=== PATIENT | female | born 1975 | race Caucasian/White ===

== ENCOUNTER 2018-04-01 14:26 | Emergency (ER) | payer MEDICAID ==
[~2018-04-01] VITALS: Ht 162.6 cm; Wt 111.1 kg
[2018-04-01 15:38] LABS: Basophils # (auto) 0 uL; Eosinophils # (auto) 0.1 uL; Eosinophils % (auto) 1.1 % (0.0-7.0); Hemoglobin 11.8 g/dL (12.2-16.2); Lymphocytes # (auto) 1.2 uL; Lymphocytes % (auto) 16.9 % (10.0-50.0); Neutrophils # (auto) 5.3 uL
[2018-04-01 15:39] LABS: Basophils % (auto) 0.3 % (0.0-2.0); Hematocrit 36.8 % (36.0-46.0); Mean Corpuscular Hemoglobin 26.3 pg (28.0-32.0); Mean Corpuscular Hgb Conc. 32.1 g/dL (32.0-36.0); Mean Corpuscular Volume 81.8 fL (80.0-100.0); Monocytes # (auto) 0.5 uL; Monocytes % (auto) 6.7 % (0.0-12.0); Platelet Count (auto) 291 10^3/uL (140-450); Red Cell Distribution Width 17.3 % (11.8-14.3)
[2018-04-01 15:43] LABS: Urine Bacteria FEW /hpf (None Seen); Urine Blood Negative /uL (Negative); Urine Specific Gravity 1.006 (1.001-1.035); Urine WBC 1 /hpf (0 - 5)
[2018-04-01 16:01] LABS: Albumin 3.1 g/dL (3.4-5.0); BUN/Creatinine Ratio 8.9; Bilirubin, Total 0.2 mg/dL (0.2-1.0); Calcium 10.9 mg/dL (8.5-10.1); Potassium 4.2 mmol/L (3.5-5.1); Total Protein 7.2 g/dL (6.4-8.2)
[2018-04-01] MEDS ORDERED: LORazepam 2MG/ML-1ML VIAL IV ONE (19:00)
[2018-04-01] MEDS ORDERED: HYDROcodone-ACET 10/325MG TAB PO ONE (19:30)
[2018-04-01 22:38] VITALS: BP 127/66
== END 2018-04-01 22:43 | disposition home or self-care (01) ==
LOC: ER 14:26
DX: R07.9 Chest pain, unspecified (principal); R51 Headache; F41.9 Anxiety disorder, unspecified; E11.9 Type 2 diabetes mellitus without complications; I10 Essential (primary) hypertension; E21.3 Hyperparathyroidism, unspecified
CPT/HCPCS: 36415; 70450; 80053; 81001; 85025; 93005; 96374; 99285; J2060

== ENCOUNTER 2018-05-06 02:15 | Observation (INO) | payer MEDICAID ==
[~2018-05-06] VITALS: Ht 162.6 cm; Wt 110.2 kg
[2018-05-06 03:44] LABS: Basophils # (auto) 0 uL; Basophils % (auto) 0.3 % (0.0-2.0); Eosinophils # (auto) 0.1 uL; Hematocrit 37.8 % (36.0-46.0); Hemoglobin 12.4 g/dL (12.2-16.2); Lymphocytes # (auto) 1.9 uL; Lymphocytes % (auto) 22.1 % (10.0-50.0); Mean Corpuscular Hemoglobin 27.2 pg (28.0-32.0); Mean Corpuscular Hgb Conc. 32.8 g/dL (32.0-36.0); Mean Corpuscular Volume 83.2 fL (80.0-100.0); Monocytes # (auto) 0.5 uL; Neutrophils # (auto) 6.1 uL; Neutrophils % (auto) 70.6 % (37.0-80.0); Nucleated Red Blood Cells % 0.1 %; Platelet Count (auto) 295 10^3/uL (140-450); Red Blood Cells 4.54 10^6/uL (4.0-5.20); Red Cell Distribution Width 15.5 % (11.8-14.3); White Blood Cell 8.7 10^3/uL (4.4-10.8)
[2018-05-06 03:52] LABS: Urine Bacteria FEW /hpf (None Seen); Urine Blood Negative /uL (Negative); Urine Specific Gravity 1.006 (1.001-1.035); Urine WBC 2 /hpf (0 - 5)
[2018-05-06 04:00] LABS: Alanine Aminotransferase 110 U/L (13-56); Albumin 3.2 g/dL (3.4-5.0); Anion Gap 9 (5-15); Aspartate Aminotransferase 63 U/L (15-37); BUN/Creatinine Ratio 20.8; Blood Urea Nitrogen 11 mg/dL (7-18); Calcium 10.7 mg/dL (8.5-10.1); Carbon Dioxide 23 mmol/L (21-32); Chloride 108 mmol/L (98-107); GFR African American 160 mL/min; GFR Non-African American 133 mL/min; Glucose 141 mg/dL (74-106); Potassium 3.9 mmol/L (3.5-5.1); Sodium 140 mmol/L (136-145)
[2018-05-06 04:04] LABS: Alkaline Phosphatase 97 U/L (45-117); Bilirubin, Total 0.2 mg/dL (0.2-1.0); Total Protein 7.5 g/dL (6.4-8.2)
[2018-05-06] MEDS ORDERED: ASPirin 81 mg TAB PO ONE (07:00)
[2018-05-06] MEDS ORDERED: LORazepam 2MG/ML-1ML VIAL IV ONE (07:00)
[2018-05-06 07:49] VITALS: BP 122/68
== END 2018-05-06 07:51 | disposition home or self-care (01) | DRG 351 ==
LOC: ER 02:15 → OVERFLOW 02:16 → ER 07:51
PROVIDERS: ADMIT Emergency Medicine; ATTEND Emergency Medicine
DX: M79.1 Myalgia (principal); E11.9 Type 2 diabetes mellitus without complications; F41.9 Anxiety disorder, unspecified; I10 Essential (primary) hypertension
CPT/HCPCS: 36415; 71046; 80053; 81001; 81025; 83880; 84484; 85025; 93005; 96374; 99285; G0378; J2060

== ENCOUNTER 2018-06-21 21:07 | Emergency (ER) | payer MEDICAID ==
[~2018-06-21] VITALS: Ht 162.6 cm; Wt 109.3 kg
[2018-06-21 22:20] LABS: Urine Bacteria NONE SEEN /hpf (None Seen); Urine Blood Negative /uL (Negative); Urine Mucus FEW (None Seen); Urine Specific Gravity 1.008 (1.001-1.035); Urine WBC 2 /hpf (0 - 5)
[2018-06-21 22:44] LABS: Basophils # (auto) 0 uL; Basophils % (auto) 0.3 % (0.0-2.0); Eosinophils # (auto) 0.1 uL; Hematocrit 38.6 % (36.0-46.0); Hemoglobin 12.6 g/dL (12.2-16.2); Lymphocytes % (auto) 23.2 % (10.0-50.0); Mean Corpuscular Hgb Conc. 32.7 g/dL (32.0-36.0); Mean Corpuscular Volume 85.6 fL (80.0-100.0); Monocytes # (auto) 0.6 uL; Monocytes % (auto) 7.1 % (0.0-12.0); Neutrophils # (auto) 5.9 uL; Neutrophils % (auto) 68.4 % (37.0-80.0); Platelet Count (auto) 303 10^3/uL (140-450); Red Blood Cells 4.51 10^6/uL (4.0-5.20); Red Cell Distribution Width 14.8 % (11.8-14.3); White Blood Cell 8.6 10^3/uL (4.4-10.8)
[2018-06-21 23:03] LABS: Albumin 3.3 g/dL (3.4-5.0); BUN/Creatinine Ratio 14.7; Bilirubin, Total 0.2 mg/dL (0.2-1.0); Calcium 11.1 mg/dL (8.5-10.1); Potassium 4.1 mmol/L (3.5-5.1); Total Protein 7.7 g/dL (6.4-8.2)
[2018-06-22] MEDS ORDERED: KETOROLAC TROMETH 30 MG/ML 1ML VIAL IV ONE (08:45)
[2018-06-22 15:53] VITALS: BP 146/92
== END 2018-06-22 15:54 | disposition home or self-care (01) ==
LOC: ER 21:07
DX: D21.9 Benign neoplasm of connective and other soft tissue, unspecified (principal)
CPT/HCPCS: 36415; 74176; 76856; 80053; 81001; 81025; 82962; 85025; 96374

== ENCOUNTER 2018-10-09 16:29 | Emergency (ER) | payer MEDICAID ==
[~2018-10-09] VITALS: Ht 162.6 cm; Wt 109.3 kg
[2018-10-09 20:14] LABS: Basophils # (auto) 0 uL; Basophils % (auto) 0.2 % (0.0-2.0); Eosinophils # (auto) 0.1 uL; Eosinophils % (auto) 1.3 % (0.0-7.0); Hematocrit 40.1 % (36.0-46.0); Hemoglobin 12.8 g/dL (12.2-16.2); Lymphocytes # (auto) 1.5 uL; Lymphocytes % (auto) 19.5 % (10.0-50.0); Mean Corpuscular Hemoglobin 27.9 pg (28.0-32.0); Mean Corpuscular Volume 87.3 fL (80.0-100.0); Monocytes # (auto) 0.5 uL; Monocytes % (auto) 6.8 % (0.0-12.0); Neutrophils # (auto) 5.6 uL; Neutrophils % (auto) 72.2 % (37.0-80.0); Platelet Count (auto) 295 10^3/uL (140-450); White Blood Cell 7.8 10^3/uL (4.4-10.8)
[2018-10-09 20:53] LABS: Alanine Aminotransferase 106 U/L (13-56); Albumin 3.3 g/dL (3.4-5.0); Anion Gap 5 (5-15); Calcium 10.8 mg/dL (8.5-10.1); Carbon Dioxide 25 mmol/L (21-32); Chloride 107 mmol/L (98-107); Glucose 188 mg/dL (74-106); Magnesium 1.8 mg/dL (1.6-2.6); Potassium 4.2 mmol/L (3.5-5.1); Sodium 137 mmol/L (136-145)
[2018-10-09 20:58] LABS: Alkaline Phosphatase 94 U/L (45-117); Aspartate Aminotransferase 53 U/L (15-37); Bilirubin, Total 0.3 mg/dL (0.2-1.0); GFR African American 136 mL/min; GFR Non-African American 113 mL/min; Total Protein 7.5 g/dL (6.4-8.2)
[2018-10-09 21:10] VITALS: BP 155/81
[2018-10-09 21:31] LABS: BUN/Creatinine Ratio 9.8; Blood Urea Nitrogen 6 mg/dL (7-18)
== END 2018-10-09 21:35 | disposition home or self-care (01) ==
LOC: ER 16:37
DX: F41.9 Anxiety disorder, unspecified (principal); E11.9 Type 2 diabetes mellitus without complications; I10 Essential (primary) hypertension
CPT/HCPCS: 36415; 71046; 80053; 83735; 84484; 85025; 93005

== ENCOUNTER 2019-05-24 13:55 | Emergency (ER) | payer MEDICAID ==
[~2019-05-24] VITALS: Ht 162.6 cm; Wt 112.0 kg
[2019-05-24] MEDS ORDERED: SODIUM CHLORIDE 0.9% 500 ML IVB ONE (14:37)
[2019-05-24] MEDS ORDERED: ONDANSETRON HCL 4 MG/2 ML VIAL IV ONE (14:45)
[2019-05-24] MEDS ORDERED: FAMOTIDINE (10MG/ML) 2ML VL IV ONE (14:45)
[2019-05-24] MEDS ORDERED: MORPHINE SULFATE 4 MG/ML SYR/VIAL IV ONE (14:45)
[2019-05-24 15:28] LABS: Urine Bacteria FEW /hpf (None Seen); Urine Blood Negative /uL (Negative); Urine Mucus FEW (None Seen); Urine Specific Gravity 1.008 (1.001-1.035); Urine WBC 1 /hpf (0 - 5)
[2019-05-24 15:58] LABS: Basophils # (auto) 0 uL; Eosinophils # (auto) 0.1 uL; Hemoglobin 9.9 g/dL (12.2-16.2); Neutrophils # (auto) 5.7 uL; White Blood Cell 7.9 10^3/uL (4.4-10.8)
[2019-05-24 15:59] LABS: Alanine Aminotransferase 101 U/L (13-56); Anion Gap 10 (5-15); Aspartate Aminotransferase 65 U/L (15-37); BUN/Creatinine Ratio 12.5; Basophils % (auto) 0.3 % (0.0-2.0); Blood Urea Nitrogen 7 mg/dL (7-18); Calcium 11.6 mg/dL (8.5-10.1); Carbon Dioxide 22 mmol/L (21-32); Chloride 106 mmol/L (98-107); GFR African American 150 mL/min; GFR Non-African American 124 mL/min; Glucose 147 mg/dL (74-106); Hematocrit 31.7 % (36.0-46.0); Lipase 95 U/L (73-393); Lymphocytes # (auto) 1.5 uL; Lymphocytes % (auto) 19.3 % (10.0-50.0); Magnesium 2.1 mg/dL (1.6-2.6); Mean Corpuscular Hemoglobin 22.5 pg (28.0-32.0); Mean Corpuscular Hgb Conc. 31.1 g/dL (32.0-36.0); Mean Corpuscular Volume 72.5 fL (80.0-100.0); Monocytes # (auto) 0.6 uL; Neutrophils % (auto) 72.4 % (37.0-80.0); Nucleated Red Blood Cells % 0.1 %; Platelet Count (auto) 386 10^3/uL (140-450); Potassium 3.9 mmol/L (3.5-5.1); Red Blood Cells 4.38 10^6/uL (4.0-5.20); Red Cell Distribution Width 17.4 % (11.8-14.3); Sodium 138 mmol/L (136-145)
[2019-05-24 16:04] LABS: Alkaline Phosphatase 98 U/L (45-117); Bilirubin, Total 0.2 mg/dL (0.2-1.0); Total Protein 7.5 g/dL (6.4-8.2)
[2019-05-24 17:28] VITALS: BP 139/82
[2019-05-26] MEDS ORDERED: GLIP10TA9 PO (22:27)
[2019-05-26] MEDS ORDERED: LISI-646 PO (22:27)
[2019-05-26] MEDS ORDERED: METF-490 PO (22:27)
[2019-05-26] MEDS ORDERED: FERR1TAB36 PO (22:27)
[2019-05-26] MEDS ORDERED: ALOG1TAB2 PO (22:28)
== END 2019-05-24 17:48 | disposition home or self-care (01) ==
LOC: ER 13:55
DX: K29.70 Gastritis, unspecified, without bleeding (principal); R51 Headache; E11.9 Type 2 diabetes mellitus without complications; I10 Essential (primary) hypertension; Z87.442 Personal history of urinary calculi; Z86.39 Personal history of other endocrine, nutritional and metabolic disease
CPT/HCPCS: 36415; 76705; 80053; 81001; 83690; 83735; 84484; 85025; 93005; 94761; 96361; 96374; 96375; 99284; J2270; J2405; J3490; J7040

== ENCOUNTER 2019-08-08 05:09 | Emergency (ER) | payer MEDICAID ==
[~2019-08-08] VITALS: Ht 162.6 cm; Wt 104.8 kg
[~2019-08-08 05:09] MED LIST: ALOG1TAB2 PO; FERR1TAB36 PO; GLIP10TA9 PO; LISI-646 PO; METF-490 PO
[2019-08-08 06:39] LABS: Basophils # (auto) 0 uL; Eosinophils # (auto) 0.1 uL; Lymphocytes # (auto) 1.5 uL; Monocytes # (auto) 0.4 uL; Monocytes % (auto) 6.4 % (0.0-12.0)
[2019-08-08 06:42] LABS: Basophils % (auto) 0.2 % (0.0-2.0); Eosinophils % (auto) 1.2 % (0.0-7.0); Hematocrit 33.1 % (36.0-46.0); Hemoglobin 10.3 g/dL (12.2-16.2); Lymphocytes % (auto) 23.3 % (10.0-50.0); Mean Corpuscular Hemoglobin 23.7 pg (28.0-32.0); Mean Corpuscular Hgb Conc. 31.2 g/dL (32.0-36.0); Neutrophils # (auto) 4.5 uL; Neutrophils % (auto) 68.9 % (37.0-80.0); Nucleated Red Blood Cells % 0.1 %; Platelet Count (auto) 322 10^3/uL (140-450); Red Blood Cells 4.36 10^6/uL (4.0-5.20); White Blood Cell 6.5 10^3/uL (4.4-10.8)
[2019-08-08 06:54] LABS: Albumin 3.2 g/dL (3.4-5.0); Anion Gap 4 (5-15); BUN/Creatinine Ratio 11.9; Blood Urea Nitrogen 7 mg/dL (7-18); Calcium 10.8 mg/dL (8.5-10.1); Carbon Dioxide 25 mmol/L (21-32); Chloride 108 mmol/L (98-107); GFR African American 141 mL/min; GFR Non-African American 117 mL/min; Glucose 108 mg/dL (74-106); Magnesium 1.8 mg/dL (1.6-2.6); Potassium 3.6 mmol/L (3.5-5.1); Sodium 137 mmol/L (136-145)
[2019-08-08 07:05] LABS: Alanine Aminotransferase 41 U/L (13-56); Alkaline Phosphatase 92 U/L (45-117); Aspartate Aminotransferase 19 U/L (15-37); Bilirubin, Total 0.2 mg/dL (0.2-1.0)
[2019-08-08 07:08] LABS: Urine Bacteria NONE SEEN /hpf (None Seen); Urine Blood 2+ /uL (Negative); Urine Mucus FEW (None Seen); Urine Specific Gravity 1.005 (1.001-1.035); Urine WBC 1 /hpf (0 - 5)
[2019-08-08] MEDS ORDERED: LORazepam 0.5 MG TAB PO ONE (07:15)
[2019-08-08 08:24] VITALS: BP 133/84
== END 2019-08-08 08:42 | disposition home or self-care (01) ==
LOC: ER 05:09
DX: F41.9 Anxiety disorder, unspecified (principal); E11.9 Type 2 diabetes mellitus without complications; I10 Essential (primary) hypertension; Z87.442 Personal history of urinary calculi; Z86.39 Personal history of other endocrine, nutritional and metabolic disease; Z98.51 Tubal ligation status
CPT/HCPCS: 36415; 80053; 81001; 81025; 83735; 84484; 85025; 93005

== ENCOUNTER 2019-10-01 00:52 | Emergency (ER) | payer MEDICAID ==
[~2019-10-01] VITALS: Ht 162.6 cm; Wt 103.4 kg
[2019-10-01 02:07] LABS: Basophils # (auto) 0 uL; Basophils % (auto) 0.2 % (0.0-2.0); Eosinophils # (auto) 0.1 uL; Eosinophils % (auto) 0.9 % (0.0-7.0); Hematocrit 38.6 % (36.0-46.0); Hemoglobin 12.4 g/dL (12.2-16.2); Lymphocytes # (auto) 2.2 uL; Lymphocytes % (auto) 26.3 % (10.0-50.0); Mean Corpuscular Hgb Conc. 32.1 g/dL (32.0-36.0); Mean Corpuscular Volume 83.9 fL (80.0-100.0); Monocytes # (auto) 0.5 uL; Monocytes % (auto) 5.9 % (0.0-12.0); Neutrophils # (auto) 5.6 uL; Neutrophils % (auto) 66.7 % (37.0-80.0); Platelet Count (auto) 347 10^3/uL (140-450); Red Cell Distribution Width 17.9 % (11.8-14.3); White Blood Cell 8.4 10^3/uL (4.4-10.8)
[2019-10-01 02:16] LABS: Albumin 3.4 g/dL (3.4-5.0); Anion Gap 8 (5-15); Blood Urea Nitrogen 9 mg/dL (7-18); Calcium 11.9 mg/dL (8.5-10.1); Carbon Dioxide 24 mmol/L (21-32); Chloride 107 mmol/L (98-107); Glucose 116 mg/dL (74-106); Potassium 4.4 mmol/L (3.5-5.1); Sodium 139 mmol/L (136-145)
[2019-10-01 02:18] LABS: Alanine Aminotransferase 33 U/L (13-56); Aspartate Aminotransferase 18 U/L (15-37); GFR African American 138 mL/min; GFR Non-African American 114 mL/min
[2019-10-01 02:23] LABS: Alkaline Phosphatase 92 U/L (45-117); Bilirubin, Total 0.2 mg/dL (0.2-1.0); Total Protein 7.5 g/dL (6.4-8.2)
[2019-10-01 02:32] LABS: Urine Bacteria NONE SEEN /hpf (None Seen); Urine Blood 1+ /uL (Negative); Urine Specific Gravity 1.003 (1.001-1.035); Urine WBC <1 /hpf (0 - 5)
[2019-10-01 03:38] VITALS: BP 137/70
== END 2019-10-01 03:55 | disposition home or self-care (01) ==
LOC: ER 00:54
DX: I20.9 Angina pectoris, unspecified (principal); I10 Essential (primary) hypertension; E11.9 Type 2 diabetes mellitus without complications
CPT/HCPCS: 36415; 70450; 80053; 81001; 84484; 85025

== ENCOUNTER 2019-11-18 03:57 | Emergency (ER) | payer MEDICAID ==
[~2019-11-18] VITALS: Ht 162.6 cm; Wt 103.4 kg
[2019-11-18 04:07] VITALS: BP 159/83
[2019-11-18 06:41] LABS: Urine Bacteria NONE SEEN /hpf (None Seen); Urine Blood 3+ /uL (Negative); Urine Mucus FEW (None Seen); Urine Specific Gravity 1.018 (1.001-1.035); Urine WBC 93 /hpf (0 - 5)
[2019-11-18 06:42] LABS: Basophils # (auto) 0 uL; Basophils % (auto) 0.2 % (0.0-2.0); Eosinophils # (auto) 0.1 uL; Eosinophils % (auto) 1.1 % (0.0-7.0); Hemoglobin 13.5 g/dL (12.2-16.2); Lymphocytes # (auto) 1.6 uL; Lymphocytes % (auto) 17.6 % (10.0-50.0); Mean Corpuscular Hemoglobin 28.9 pg (28.0-32.0); Mean Corpuscular Volume 87.6 fL (80.0-100.0); Monocytes # (auto) 0.6 uL; Monocytes % (auto) 6.2 % (0.0-12.0); Neutrophils # (auto) 6.8 uL; Neutrophils % (auto) 74.9 % (37.0-80.0); Platelet Count (auto) 324 10^3/uL (140-450); Red Blood Cells 4.68 10^6/uL (4.0-5.20); Red Cell Distribution Width 14.2 % (11.8-14.3); White Blood Cell 9.1 10^3/uL (4.4-10.8)
[2019-11-18 07:10] LABS: Alanine Aminotransferase 28 U/L (13-56); Albumin 3.2 g/dL (3.4-5.0); Anion Gap 3 (5-15); Aspartate Aminotransferase 13 U/L (15-37); BUN/Creatinine Ratio 14.8; Blood Urea Nitrogen 8 mg/dL (7-18); Calcium 10.6 mg/dL (8.5-10.1); Carbon Dioxide 26 mmol/L (21-32); Chloride 107 mmol/L (98-107); GFR African American 156 mL/min; GFR Non-African American 129 mL/min; Glucose 202 mg/dL (74-106); Magnesium 1.9 mg/dL (1.6-2.6); Potassium 4.3 mmol/L (3.5-5.1); Sodium 136 mmol/L (136-145)
[2019-11-18 07:10] LABS: Amphetamine Screen, Urine NEGATIVE (NEGATIVE)
[2019-11-18 07:15] LABS: Alkaline Phosphatase 110 U/L (45-117); Bilirubin, Total 0.3 mg/dL (0.2-1.0); Total Protein 7.8 g/dL (6.4-8.2)
[2019-11-18 07:16] LABS: Alcohol, Urine < 3.0 mg/dL (0-5); Barbiturate Scree,Urine NEGATIVE (NEGATIVE); Benzodiazephine Screen, Urine NEGATIVE (NEGATIVE); Cannabinoid Screen, Urine NEGATIVE (NEGATIVE); Cocaine Screen, Urine NEGATIVE (NEGATIVE); Opiate Scree,Urine NEGATIVE (NEGATIVE); Phencyclidine Screen, Urine NEGATIVE (NEGATIVE)
[2019-11-18] MEDS ORDERED: cefTRIAXone 1GM/50ML D5W 50 ML IV ONE (08:30)
== END 2019-11-18 09:05 | disposition left against medical advice (07) ==
LOC: ER 04:01
DX: R07.89 Other chest pain (principal); J40 Bronchitis, not specified as acute or chronic; N39.0 Urinary tract infection, site not specified; F41.9 Anxiety disorder, unspecified; E11.9 Type 2 diabetes mellitus without complications; I10 Essential (primary) hypertension; Z98.51 Tubal ligation status; Z87.442 Personal history of urinary calculi; Z79.899 Other long term (current) drug therapy
CPT/HCPCS: 36415; 71045; 80053; 80307; 81001; 83735; 84484; 85025; 93005

== ENCOUNTER 2020-12-09 13:42 | Emergency (ER) | payer MEDICAID ==
[~2020-12-09] VITALS: Ht 162.6 cm; Wt 107.5 kg
[~2020-12-09 13:42] MED LIST changes: -LISI-646 PO; +LISI20TA28 PO
[2020-12-09 14:42] VITALS: BP 176/82
== END 2020-12-09 15:28 | disposition home or self-care (01) ==
LOC: ER 13:42
DX: Z76.0 Encounter for issue of repeat prescription (principal); E11.9 Type 2 diabetes mellitus without complications; I10 Essential (primary) hypertension; Z79.84 Long term (current) use of oral hypoglycemic drugs; Z79.899 Other long term (current) drug therapy

== ENCOUNTER 2021-02-14 18:34 | Emergency (ER) | payer MEDICAID ==
[~2021-02-14] VITALS: Ht 162.6 cm; Wt 108.9 kg
[2021-02-14 19:44] LABS: Basophils # (auto) 0 10 ^3/uL (0-0.2); Basophils % (auto) 0.6 % (0.0-2.0); Eosinophils # (auto) 0.1 10 ^3/uL (0-0.8); Eosinophils % (auto) 1.6 % (0.0-7.0); Hematocrit 40.6 % (36.0-46.0); Hemoglobin 13.7 g/dL (12.2-16.2); Lymphocytes # (auto) 1.9 10 ^3/uL (0.4-5.4); Lymphocytes % (auto) 24.7 % (10.0-50.0); Mean Corpuscular Hemoglobin 29.8 pg (28.0-32.0); Mean Corpuscular Hgb Conc. 33.6 g/dL (32.0-36.0); Mean Corpuscular Volume 88.6 fL (80.0-100.0); Monocytes # (auto) 0.5 10 ^3/uL (0-1.3); Neutrophils % (auto) 67.1 % (37.0-80.0); Platelet Count (auto) 330 10^3/uL (140-450); Red Blood Cells 4.58 10^6/uL (4.0-5.20); Red Cell Distribution Width 15.8 % (11.8-14.3); White Blood Cell 7.5 10^3/uL (4.4-10.8)
[2021-02-14 20:03] LABS: Albumin 3.3 g/dL (3.4-5.0); Anion Gap 6 (5-15); Blood Urea Nitrogen 9 mg/dL (7-18); Calcium 11.6 mg/dL (8.5-10.1); Carbon Dioxide 22 mmol/L (21-32); Chloride 105 mmol/L (98-107); Glucose 348 mg/dL (74-106); Potassium 4.7 mmol/L (3.5-5.1); Sodium 133 mmol/L (136-145)
[2021-02-14 20:20] LABS: Alanine Aminotransferase 62 U/L (13-56); Alkaline Phosphatase 131 U/L (45-117); Aspartate Aminotransferase 31 U/L (15-37); BUN/Creatinine Ratio 12.7; Bilirubin, Total 0.2 mg/dL (0.2-1.0); GFR African American 113 mL/min; GFR Non-African American 94 mL/min; Total Protein 7.5 g/dL (6.4-8.2)
[2021-02-15 01:35] VITALS: BP 130/75
[2021-02-15] MEDS ORDERED: InsuLIN REG 1unit/0.01ml Soln (100units/ml) IV ONE (02:00)
[2021-02-15] MEDS ORDERED: KETOROLAC TROMETH 30 MG/ML 1ML VIAL IV ONE (02:00)
== END 2021-02-15 10:51 | disposition home or self-care (01) ==
LOC: ER 18:35
DX: R07.89 Other chest pain (principal); F41.9 Anxiety disorder, unspecified; E11.9 Type 2 diabetes mellitus without complications; I10 Essential (primary) hypertension; Z98.51 Tubal ligation status; Z98.890 Other specified postprocedural states
CPT/HCPCS: 36415; 80053; 82962; 84484; 85025; 93005; 96374; 96375; 99284; J1815; J1885

== ENCOUNTER 2021-04-22 20:12 | Emergency (ER) | payer MEDICAID ==
[~2021-04-22] VITALS: Ht 165.1 cm; Wt 104.3 kg
[2021-04-22] MEDS ORDERED: NITROGLYCERIN 0.2MG/HR TOPICAL PATCH TD ONE (21:00)
[2021-04-22] MEDS ORDERED: KETOROLAC TROMETH 30 MG/ML 1ML VIAL IV ONE (21:00)
[2021-04-22] MEDS ORDERED: LORazepam 0.5 MG TAB PO ONE (21:00)
[2021-04-22] MEDS ORDERED: ASPirin 81 mg TAB PO ONE (21:00)
[2021-04-22] MEDS ORDERED: ACETAMINOPHEN 325 MG TAB PO ONE (21:00)
[2021-04-22 22:42] LABS: Basophils # (auto) 0.2 10 ^3/uL (0-0.2); Basophils % (auto) 1.7 % (0.0-2.0); Eosinophils # (auto) 0.1 10 ^3/uL (0-0.8); Eosinophils % (auto) 0.8 % (0.0-7.0); Hematocrit 37.7 % (36.0-46.0); Hemoglobin 12.7 g/dL (12.2-16.2); Lymphocytes # (auto) 1.5 10 ^3/uL (0.4-5.4); Mean Corpuscular Hemoglobin 29.6 pg (28.0-32.0); Mean Corpuscular Hgb Conc. 33.8 g/dL (32.0-36.0); Mean Corpuscular Volume 87.7 fL (80.0-100.0); Monocytes # (auto) 0.4 10 ^3/uL (0-1.3); Neutrophils # (auto) 6.8 10 ^3/uL (1.6-8.6); Neutrophils % (auto) 76.5 % (37.0-80.0); Nucleated Red Blood Cells % 0.1 %; Red Cell Distribution Width 14.5 % (11.8-14.3); White Blood Cell 8.9 10^3/uL (4.4-10.8)
[2021-04-22 22:47] LABS: Albumin 3.4 g/dL (3.4-5.0); Anion Gap 10 (5-15); Blood Urea Nitrogen 8 mg/dL (7-18); Carbon Dioxide 23 mmol/L (21-32); Chloride 101 mmol/L (98-107); Glucose 214 mg/dL (74-106); INR 0.94 (0.9-1.15); Magnesium 1.8 mg/dL (1.6-2.6); Partial Thromboplastin Time 21.9 sec (23.0-31.2); Sodium 134 mmol/L (136-145)
[2021-04-22 22:52] LABS: Alanine Aminotransferase 69 U/L (13-56); Alkaline Phosphatase 86 U/L (45-117); Aspartate Aminotransferase 56 U/L (15-37); BUN/Creatinine Ratio 14.8; Bilirubin, Total 0.2 mg/dL (0.2-1.0); GFR African American 155 mL/min; GFR Non-African American 128 mL/min
[2021-04-22 22:59] LABS: Urine Bacteria NONE SEEN /hpf (None Seen); Urine Blood 3+ /uL (Negative); Urine Mucus FEW (None Seen); Urine Specific Gravity 1.011 (1.001-1.035); Urine WBC 5 /hpf (0 - 5)
[2021-04-23] MEDS ORDERED: HYDROcodone-ACET 7.5/325MG TAB PO ONE (00:30)
[2021-04-23] MEDS ORDERED: NIFEdipine 10 MG CAP PO ONE (02:00)
[2021-04-23] MEDS ORDERED: ONDANSETRON HCL 4 MG/2 ML VIAL IV ONE (02:15)
[2021-04-23 03:00] VITALS: BP 162/80
[2021-04-23] MEDS ORDERED: NITROGLYCERIN 0.4 MG SL TAB SL ONE (10:00)
== END 2021-04-23 05:53 | disposition home or self-care (01) ==
LOC: ER 20:12
DX: R07.89 Other chest pain (principal); I10 Essential (primary) hypertension; E11.9 Type 2 diabetes mellitus without complications; Z86.2 Personal history of diseases of the blood and blood-forming organs and certain disorders involving the immune mechanism; Z79.899 Other long term (current) drug therapy
CPT/HCPCS: 36415; 71045; 80053; 81001; 81025; 82962; 83735; 83880; 84484; 85025; 85610; 85730; 93005; 96374; 96375; 99285; J1885; J2405

== ENCOUNTER 2021-06-21 20:30 | Emergency (ER) | payer MEDICAID ==
[~2021-06-21] VITALS: Ht 152.4 cm; Wt 108.9 kg
[2021-06-21 23:55] LABS: Basophils # (auto) 0 10 ^3/uL (0-0.2); Basophils % (auto) 0.4 % (0.0-2.0); Eosinophils # (auto) 0.1 10 ^3/uL (0-0.8); Hematocrit 39.2 % (36.0-46.0); Hemoglobin 13.1 g/dL (12.2-16.2); Lymphocytes # (auto) 1.7 10 ^3/uL (0.4-5.4); Lymphocytes % (auto) 19.6 % (10.0-50.0); Mean Corpuscular Hemoglobin 29.7 pg (28.0-32.0); Mean Corpuscular Hgb Conc. 33.5 g/dL (32.0-36.0); Mean Corpuscular Volume 88.7 fL (80.0-100.0); Monocytes # (auto) 0.5 10 ^3/uL (0-1.3); Monocytes % (auto) 5.7 % (0.0-12.0); Neutrophils # (auto) 6.4 10 ^3/uL (1.6-8.6); Neutrophils % (auto) 73.3 % (37.0-80.0); Nucleated Red Blood Cells % 0.1 %; Red Blood Cells 4.42 10^6/uL (4.0-5.20); Red Cell Distribution Width 14.7 % (11.8-14.3); White Blood Cell 8.8 10^3/uL (4.4-10.8)
[2021-06-22 00:31] LABS: Albumin 3.1 g/dL (3.4-5.0); Anion Gap 10 (5-15); Blood Urea Nitrogen 8 mg/dL (7-18); Calcium 11.6 mg/dL (8.5-10.1); Carbon Dioxide 25 mmol/L (21-32); Chloride 101 mmol/L (98-107); GFR African American 146 mL/min; GFR Non-African American 120 mL/min; Glucose 192 mg/dL (74-106); Potassium 4.2 mmol/L (3.5-5.1); Sodium 136 mmol/L (136-145)
[2021-06-22 00:44] LABS: Alanine Aminotransferase 110 U/L (13-56); Alkaline Phosphatase 91 U/L (45-117); Aspartate Aminotransferase 102 U/L (15-37); Bilirubin, Total 0.3 mg/dL (0.2-1.0); Total Protein 7.6 g/dL (6.4-8.2)
[2021-06-22 04:53] VITALS: BP 166/77
== END 2021-06-22 05:05 | disposition home or self-care (01) ==
LOC: ER 20:30
DX: R07.89 Other chest pain (principal); I10 Essential (primary) hypertension; E11.9 Type 2 diabetes mellitus without complications; F41.9 Anxiety disorder, unspecified; Z79.4 Long term (current) use of insulin; Z79.899 Other long term (current) drug therapy; Z87.442 Personal history of urinary calculi; Z98.890 Other specified postprocedural states
CPT/HCPCS: 36415; 71045; 80053; 83880; 84484; 85025; 93005

== ENCOUNTER 2021-08-10 22:17 | Emergency (ER) | payer MEDICAID ==
[~2021-08-10] VITALS: Ht 162.6 cm; Wt 103.9 kg
[2021-08-11 00:10] LABS: Basophils # (auto) 0 10 ^3/uL (0-0.2); Basophils % (auto) 0.4 % (0.0-2.0); Eosinophils # (auto) 0.1 10 ^3/uL (0-0.8); Hematocrit 37.4 % (36.0-46.0); Hemoglobin 12.1 g/dL (12.2-16.2); Lymphocytes # (auto) 1.7 10 ^3/uL (0.4-5.4); Lymphocytes % (auto) 25.2 % (10.0-50.0); Mean Corpuscular Hemoglobin 27.9 pg (28.0-32.0); Mean Corpuscular Hgb Conc. 32.5 g/dL (32.0-36.0); Monocytes # (auto) 0.5 10 ^3/uL (0-1.3); Neutrophils # (auto) 4.4 10 ^3/uL (1.6-8.6); Neutrophils % (auto) 65.4 % (37.0-80.0); Nucleated Red Blood Cells % 0.1 %; Red Blood Cells 4.35 10^6/uL (4.0-5.20); Red Cell Distribution Width 13.7 % (11.8-14.3); White Blood Cell 6.8 10^3/uL (4.4-10.8)
[2021-08-11 00:31] LABS: BUN/Creatinine Ratio 18.9; Calcium 11.6 mg/dL (8.5-10.1); Magnesium 1.6 mg/dL (1.6-2.6); Potassium 3.8 mmol/L (3.5-5.1)
[2021-08-11 00:40] LABS: Bilirubin, Total 0.3 mg/dL (0.2-1.0); Total Protein 7.3 g/dL (6.4-8.2)
[2021-08-11 04:30] VITALS: BP 175/86
== END 2021-08-11 05:00 | disposition home or self-care (01) ==
LOC: ER 22:17
DX: R07.89 Other chest pain (principal); I10 Essential (primary) hypertension; F41.9 Anxiety disorder, unspecified; E11.9 Type 2 diabetes mellitus without complications; Z98.51 Tubal ligation status
CPT/HCPCS: 36415; 71045; 80053; 83735; 83880; 84484; 85025; 93005

== ENCOUNTER 2021-10-01 22:18 | Emergency (ER) | payer MEDICAID ==
[~2021-10-01] VITALS: Ht 160 cm; Wt 100.7 kg
[2021-10-01 22:19] VITALS: BP 128/48
== END 2021-10-02 01:52 | disposition left against medical advice (07) ==
LOC: ER 22:18
DX: U07.1 COVID-19 (principal); R05.9 Cough, unspecified; Z53.21 Procedure and treatment not carried out due to patient leaving prior to being seen by health care provider
CPT/HCPCS: 36415; 87426

== ENCOUNTER 2021-10-03 12:34 | Emergency (ER) | payer MEDICAID ==
[~2021-10-03] VITALS: Ht 157.5 cm; Wt 99.8 kg
[2021-10-03 19:55] LABS: Basophils # (auto) 0 10 ^3/uL (0-0.2); Basophils % (auto) 0.2 % (0.0-2.0); Eosinophils # (auto) 0 10 ^3/uL (0-0.8); Lymphocytes # (auto) 0.7 10 ^3/uL (0.4-5.4); Mean Corpuscular Hemoglobin 26.4 pg (28.0-32.0); Monocytes # (auto) 0.2 10 ^3/uL (0-1.3); Neutrophils # (auto) 2.2 10 ^3/uL (1.6-8.6); White Blood Cell 3.1 10^3/uL (4.4-10.8)
[2021-10-03 19:57] LABS: Eosinophils % (auto) 0.1 % (0.0-7.0); Hematocrit 36.3 % (36.0-46.0); Hemoglobin 11.9 g/dL (12.2-16.2); Lymphocytes % (auto) 21.9 % (10.0-50.0); Mean Corpuscular Hgb Conc. 32.7 g/dL (32.0-36.0); Mean Corpuscular Volume 80.9 fL (80.0-100.0); Monocytes % (auto) 5.9 % (0.0-12.0); Neutrophils % (auto) 71.9 % (37.0-80.0); Nucleated Red Blood Cells % 0.1 %; Red Blood Cells 4.49 10^6/uL (4.0-5.20); Red Cell Distribution Width 15.3 % (11.8-14.3)
[2021-10-03 20:14] LABS: Albumin 2.9 g/dL (3.4-5.0); BUN/Creatinine Ratio 19.2; Calcium 10.5 mg/dL (8.5-10.1); Potassium 4.3 mmol/L (3.5-5.1)
[2021-10-03 20:19] LABS: Bilirubin, Total 0.2 mg/dL (0.2-1.0); Total Protein 7.5 g/dL (6.4-8.2)
[2021-10-03 23:08] VITALS: BP 123/78
== END 2021-10-03 23:25 | disposition home or self-care (01) ==
LOC: ER 12:34
DX: U07.1 COVID-19 (principal); J18.9 Pneumonia, unspecified organism; R51.9 Headache, unspecified; E66.9 Obesity, unspecified; E11.9 Type 2 diabetes mellitus without complications; I10 Essential (primary) hypertension; Z98.51 Tubal ligation status; Z68.41 Body mass index [BMI] 40.0-44.9, adult; Z87.442 Personal history of urinary calculi
CPT/HCPCS: 36415; 71046; 80053; 83690; 84484; 85025; 93005

== ENCOUNTER 2021-10-07 09:20 | Inpatient (IN) | payer MEDICAID ==
[~2021-10-07] VITALS: Ht 172.7 cm; Wt 90.6 kg
[2021-10-07 10:25] LABS: Basophils # (auto) 0 10 ^3/uL (0-0.2); Basophils % (auto) 0.1 % (0.0-2.0); Eosinophils # (auto) 0 10 ^3/uL (0-0.8); Hematocrit 34.5 % (36.0-46.0); Lymphocytes # (auto) 0.8 10 ^3/uL (0.4-5.4); Lymphocytes % (auto) 18.6 % (10.0-50.0); Mean Corpuscular Hemoglobin 26.3 pg (28.0-32.0); Mean Corpuscular Hgb Conc. 31.9 g/dL (32.0-36.0); Mean Corpuscular Volume 82.5 fL (80.0-100.0); Monocytes # (auto) 0.3 10 ^3/uL (0-1.3); Monocytes % (auto) 8.1 % (0.0-12.0); Neutrophils # (auto) 3.1 10 ^3/uL (1.6-8.6); Neutrophils % (auto) 73.2 % (37.0-80.0); Nucleated Red Blood Cells % 0.1 %; Red Blood Cells 4.18 10^6/uL (4.0-5.20); Red Cell Distribution Width 15.3 % (11.8-14.3); White Blood Cell 4.3 10^3/uL (4.4-10.8)
[2021-10-07 10:29] LABS: Urine Bacteria NONE SEEN /hpf (None Seen); Urine Blood 2+ /uL (Negative); Urine Hyaline Cast FEW /lpf (0 - 2); Urine Specific Gravity 1.017 (1.001-1.035); Urine WBC 25 /hpf (0 - 5)
[2021-10-07 11:01] LABS: Lactic Acid w/Reflex 2.1 mmol/L (0.4-2.0)
[2021-10-07 11:41] LABS: Albumin 2.7 g/dL (3.4-5.0); Calcium 10.4 mg/dL (8.5-10.1); Potassium 4.6 mmol/L (3.5-5.1)
[2021-10-07 11:47] LABS: BUN/Creatinine Ratio 22.2; Bilirubin, Total 0.3 mg/dL (0.2-1.0); Total Protein 7.5 g/dL (6.4-8.2)
[2021-10-07] MEDS ORDERED: InsuLIN REG 1unit/0.01ml Soln (100units/ml) IV ONE (12:30)
[2021-10-07] MEDS ORDERED: INSULIN LANTUS (GLARGINE) 1 /0.01ml (100units/ml) SC ONE (12:45)
[2021-10-07] MEDS ORDERED: DEXTROSE (50%) 50ML SYRG IV PRN ×2 (12:45→18:30)
[2021-10-07] MEDS ORDERED: InsuLIN R (HUMAN) 100 UNITS in SODIUM CHL 0.9% 99 ML IV SCH (12:45)
[2021-10-07] MEDS: ACCU-CHEK COMFORT CURVE STRIP VI SCH ×5 (14:03→22:38)
[2021-10-07] MEDS ORDERED: AZITHROMYCIN 500MG/ 250ML 250 ML IV ONE (14:15)
[2021-10-07] MEDS ORDERED: ZINC SULFATE 220mg CAP or TAB PO ONE (14:15)
[2021-10-07] MEDS ORDERED: cefTRIAXone 1GM/50ML D5W 50 ML IV ONE (14:15)
[2021-10-07] MEDS ORDERED: DexAMETHasone SOD PHOS 10MG/1ML VIAL INJ IV ONE (14:15)
[2021-10-07] MEDS ORDERED: NITROGLYCERIN 0.4 MG SL TAB SL PRN (18:30)
[2021-10-07] MEDS ORDERED: SODIUM CHLORIDE 0.9% 1,000 ML IV ONE ×2 (18:30)
[2021-10-07] MEDS ORDERED: ONDANSETRON HCL 4 MG/2 ML VIAL IV PRN (18:30)
[2021-10-07] MEDS ORDERED: REMDESIVIR PER PHARMACY 0 ML IV SCH (18:30)
[2021-10-07] MEDS: InsuLIN REG 1unit/0.01ml Soln (100units/ml) SC SCH ×2 (18:59→22:35)
[2021-10-07] MEDS: DOXYCYCLINE 100MG/250ML 250 ML IV SCH (20:51)
[2021-10-07] MEDS ORDERED: REMDESIVIR 200 MG in NS 210ml LOADING DOSE ADULT IV ONE (21:30)
[2021-10-07] MEDS ORDERED: ALBUTEROL SULF HFA 90MCG INH 200DOSE IN SCH (22:00)
[2021-10-07 22:12] LABS: Albumin 2.6 g/dL (3.4-5.0); Calcium 11.1 mg/dL (8.5-10.1); Magnesium 2.7 mg/dL (1.6-2.6); Potassium 5.5 mmol/L (3.5-5.1)
[2021-10-07 22:19] LABS: BUN/Creatinine Ratio 28.9; Bilirubin, Total 0.4 mg/dL (0.2-1.0); CRP High Sensitivity 9.71 mg/dL (< 0.3); Total Protein 7.4 g/dL (6.4-8.2)
[2021-10-07] MEDS: ASCORBIC ACID 500 MG TAB PO SCH (22:38)
[2021-10-07] MEDS: ENOXAPARIN SOD 40 MG/0.4 ML SYRINGE SC SCH (22:38)
[2021-10-07 23:24] LABS: Basophils # (auto) 0 10 ^3/uL (0-0.2); Basophils % (auto) 0.4 % (0.0-2.0); Eosinophils # (auto) 0 10 ^3/uL (0-0.8); Lymphocytes # (auto) 0.2 10 ^3/uL (0.4-5.4); Mean Corpuscular Volume 81.4 fL (80.0-100.0); Monocytes # (auto) 0.2 10 ^3/uL (0-1.3); Neutrophils # (auto) 2.8 10 ^3/uL (1.6-8.6); White Blood Cell 3.3 10^3/uL (4.4-10.8)
[2021-10-07 23:26] LABS: Hematocrit 33.6 % (36.0-46.0); Hemoglobin 10.8 g/dL (12.2-16.2); Lymphocytes % (auto) 6.2 % (10.0-50.0); Mean Corpuscular Hemoglobin 26.1 pg (28.0-32.0); Mean Corpuscular Hgb Conc. 32.1 g/dL (32.0-36.0); Monocytes % (auto) 7.2 % (0.0-12.0); Neutrophils % (auto) 86.2 % (37.0-80.0); Nucleated Red Blood Cells % 0.1 %; Red Blood Cells 4.13 10^6/uL (4.0-5.20); Red Cell Distribution Width 15.2 % (11.8-14.3)
[2021-10-07 23:59] LABS: Thyroid Stimulating Hormone 0.78 uIU/mL (0.358-3.74)
[2021-10-08] MEDS: DOXYCYCLINE 100MG/250ML 250 ML IV SCH ×2 (06:21→19:23)
[2021-10-08] MEDS: ACCU-CHEK COMFORT CURVE STRIP VI SCH ×3 (06:26→17:15)
[2021-10-08] MEDS: InsuLIN REG 1unit/0.01ml Soln (100units/ml) SC SCH ×3 (06:36→20:41)
[2021-10-08] MEDS ORDERED: ALBUTEROL SULF HFA 90MCG INH 200DOSE IN PRN (07:15)
[2021-10-08 08:45] LABS: Basophils # (auto) 0 10 ^3/uL (0-0.2); Eosinophils # (auto) 0 10 ^3/uL (0-0.8); Hemoglobin 10.9 g/dL (12.2-16.2); Monocytes # (auto) 0.4 10 ^3/uL (0-1.3); Neutrophils # (auto) 3.9 10 ^3/uL (1.6-8.6); Neutrophils % (auto) 83.5 % (37.0-80.0); White Blood Cell 4.6 10^3/uL (4.4-10.8)
[2021-10-08 08:48] LABS: Basophils % (auto) 0.3 % (0.0-2.0); Lymphocytes # (auto) 0.4 10 ^3/uL (0.4-5.4); Lymphocytes % (auto) 8.2 % (10.0-50.0); Mean Corpuscular Volume 81.2 fL (80.0-100.0); Nucleated Red Blood Cells % 0.2 %; Red Blood Cells 4.18 10^6/uL (4.0-5.20); Red Cell Distribution Width 15.2 % (11.8-14.3)
[2021-10-08 09:08] LABS: Albumin 2.5 g/dL (3.4-5.0); Calcium 11.4 mg/dL (8.5-10.1)
[2021-10-08 09:17] LABS: BUN/Creatinine Ratio 31.1; Bilirubin, Total 0.3 mg/dL (0.2-1.0); CRP High Sensitivity 7.85 mg/dL (< 0.3); Total Protein 7.3 g/dL (6.4-8.2)
[2021-10-08] MEDS ORDERED: INSULIN LANTUS (GLARGINE) 1 /0.01ml (100units/ml) SC SCH (10:00)
[2021-10-08] MEDS ORDERED: DexAMETHasone SOD PHOS 10MG/1ML VIAL INJ IV SCH (10:00)
[2021-10-08] MEDS: ENOXAPARIN SOD 40 MG/0.4 ML SYRINGE SC SCH ×2 (10:20→23:00)
[2021-10-08] MEDS: DexAMETHasone SOD PHOS 10MG/1ML VIAL INJ IV SCH (10:20)
[2021-10-08] MEDS: ACETAMINOPHEN 325 MG TAB PO PRN ×2 (10:21→20:57)
[2021-10-08] MEDS: ASCORBIC ACID 500 MG TAB PO SCH ×3 (10:21→22:00)
[2021-10-08] MEDS: ZINC SULFATE 220mg CAP or TAB PO SCH ×2 (10:21→10:23)
[2021-10-08] MEDS ORDERED: REMDESIVIR 100mg 100 MG in SODIUM CHL 0.9% 230 ML IV SCH (15:00)
[2021-10-08] MEDS ORDERED: SUCCINYLCHOLINE CHLORIDE 20 MG/ML 10ML VIAL IV ONE ×2 (17:30→17:44)
[2021-10-08] MEDS ORDERED: ETOMIDATE (2MG/ML) 20ML VIAL IV ONE ×2 (17:30→17:44)
[2021-10-08] MEDS: MIDAZOLAM DRIP 50 mg/50mL 50 ML IV SCH (18:23)
[2021-10-08 18:24] VITALS: BP 181/81
[2021-10-08] MEDS: fentaNYL Drip 2500mCg/250mlNS 250 ML IV SCH (18:50)
[2021-10-08] MEDS ORDERED: ROCURONIUM 10MG/ML 10ML VIAL IV ONE (19:15)
[2021-10-08] MEDS ORDERED: InsuLIN REG 1unit/0.01ml Soln (100units/ml) SC SCH (22:00)
[2021-10-08 22:02] VITALS: BP 94/47
[2021-10-08] MEDS: NOREPINEPHRINE 8 MG/250ML KIT 250 ML IV SCH (23:11)
[2021-10-09] MEDS: ACCU-CHEK COMFORT CURVE STRIP VI SCH ×5 (00:59→22:04)
[2021-10-09 02:04] VITALS: BP 142/56
[2021-10-09] MEDS: MIDAZOLAM DRIP 50 mg/50mL 50 ML IV SCH ×4 (02:58→22:40)
[2021-10-09] MEDS: ACETAMINOPHEN 325 MG TAB PO PRN ×2 (03:02→19:42)
[2021-10-09 05:17] LABS: Hemoglobin 11.5 g/dL (12.2-16.2)
[2021-10-09 05:20] LABS: Hematocrit 37.6 % (36.0-46.0); Mean Corpuscular Hemoglobin 26.1 pg (28.0-32.0); Mean Corpuscular Hgb Conc. 30.6 g/dL (32.0-36.0); Mean Corpuscular Volume 85.2 fL (80.0-100.0); Red Blood Cells 4.41 10^6/uL (4.0-5.20); Red Cell Distribution Width 15.7 % (11.8-14.3); White Blood Cell 12.1 10^3/uL (4.4-10.8)
[2021-10-09 06:01] LABS: BUN/Creatinine Ratio 30.9; CRP High Sensitivity 4.28 mg/dL (< 0.3); Calcium 12.1 mg/dL (8.5-10.1)
[2021-10-09 06:06] LABS: Potassium 5.6 mmol/L (3.5-5.1)
[2021-10-09 06:15] LABS: Basophils % (manual) 0 (0.0-2.0); Blast Cells 0; Eosinophils % (manual) 0 (0-7); Metamyelocytes % 0; Promyelocytes % 0; Reactive Lymphocytes 0
[2021-10-09 06:20] VITALS: BP 112/43
[2021-10-09] MEDS: DOXYCYCLINE 100MG/250ML 250 ML IV SCH ×2 (06:30→19:00)
[2021-10-09] MEDS: NOREPINEPHRINE 8 MG/250ML KIT 250 ML IV SCH (06:44)
[2021-10-09] MEDS: InsuLIN REG 1unit/0.01ml Soln (100units/ml) SC SCH ×3 (07:04→17:32)
[2021-10-09] MEDS: PROPOFOL 100 ML IV SCH ×2 (08:29→21:28)
[2021-10-09 09:03] LABS: Band Neutrophils % (manual) 19; Lymphocytes % (manual) 7 (10.0-50.0); Monocytes % (manual) 3 (0-12); Myelocytes % 1
[2021-10-09] MEDS ORDERED: INSULIN LANTUS (GLARGINE) 1 /0.01ml (100units/ml) SC SCH (10:00)
[2021-10-09] MEDS: ENOXAPARIN SOD 40 MG/0.4 ML SYRINGE SC SCH ×2 (10:00→22:39)
[2021-10-09 10:20] VITALS: BP 103/56
[2021-10-09] MEDS: ZINC SULFATE 220mg CAP or TAB PO SCH (10:30)
[2021-10-09] MEDS: DexAMETHasone SOD PHOS 10MG/1ML VIAL INJ IV SCH (10:30)
[2021-10-09] MEDS: ASCORBIC ACID 500 MG TAB PO SCH ×2 (10:30→22:39)
[2021-10-09 14:20] VITALS: BP 103/56
[2021-10-09] MEDS: fentaNYL Drip 2500mCg/250mlNS 250 ML IV SCH (17:30)
[2021-10-09 19:08] VITALS: BP 120/73
[2021-10-09] MEDS ORDERED: FUROSEMIDE 20 MG/2 ML VIAL IV ONE (22:00)
[2021-10-09] MEDS ORDERED: InsuLIN REG 1unit/0.01ml Soln (100units/ml) SC SCH (22:00)
[2021-10-09] MEDS ORDERED: SODIUM ZIRCONIUM CYCL 10 GM PAK PO ONE (22:00)
[2021-10-09 22:08] VITALS: BP 110/54
[2021-10-09] MEDS: SODIUM CHLORIDE 0.9% 1,000 ML IV SCH (22:37)
[2021-10-10] MEDS: MIDAZOLAM DRIP 50 mg/50mL 50 ML IV SCH ×3 (01:39→06:07)
[2021-10-10 02:22] VITALS: BP 102/57
[2021-10-10] MEDS: DOXYCYCLINE 100MG/250ML 250 ML IV SCH ×2 (06:20→18:00)
[2021-10-10] MEDS: ACCU-CHEK COMFORT CURVE STRIP VI SCH ×11 (07:10→23:52)
[2021-10-10] MEDS: InsuLIN REG 1unit/0.01ml Soln (100units/ml) SC SCH (07:13)
[2021-10-10 07:29] VITALS: BP 104/59
[2021-10-10] MEDS: SODIUM CHLORIDE 0.9% 1,000 ML IV SCH (08:00)
[2021-10-10 09:53] LABS: Basophils # (auto) 0 10 ^3/uL (0-0.2); Basophils % (auto) 0.1 % (0.0-2.0); Eosinophils # (auto) 0 10 ^3/uL (0-0.8); Hematocrit 36.4 % (36.0-46.0); Hemoglobin 11.3 g/dL (12.2-16.2); Lymphocytes # (auto) 0.6 10 ^3/uL (0.4-5.4); Lymphocytes % (auto) 8.9 % (10.0-50.0); Mean Corpuscular Hemoglobin 25.5 pg (28.0-32.0); Mean Corpuscular Volume 82.3 fL (80.0-100.0); Monocytes # (auto) 0.7 10 ^3/uL (0-1.3); Monocytes % (auto) 9.8 % (0.0-12.0); Neutrophils # (auto) 5.7 10 ^3/uL (1.6-8.6); Neutrophils % (auto) 81.2 % (37.0-80.0); Nucleated Red Blood Cells % 0.1 %; Red Blood Cells 4.42 10^6/uL (4.0-5.20)
[2021-10-10] MEDS: DexAMETHasone SOD PHOS 10MG/1ML VIAL INJ IV SCH (10:00)
[2021-10-10] MEDS: ASCORBIC ACID 500 MG TAB PO SCH ×2 (10:00→22:03)
[2021-10-10] MEDS: ZINC SULFATE 220mg CAP or TAB PO SCH (10:00)
[2021-10-10] MEDS: ENOXAPARIN SOD 40 MG/0.4 ML SYRINGE SC SCH ×2 (10:00→22:01)
[2021-10-10] MEDS ORDERED: INSULIN LANTUS (GLARGINE) 1 /0.01ml (100units/ml) SC SCH (10:00)
[2021-10-10] MEDS ORDERED: DEXTROSE (50%) 50ML SYRG IV PRN (10:30)
[2021-10-10] MEDS ORDERED: INSULIN LANTUS (GLARGINE) 1 /0.01ml (100units/ml) SC ONE (10:30)
[2021-10-10 11:07] VITALS: BP 100/41
[2021-10-10 11:12] LABS: BUN/Creatinine Ratio 42.9; Calcium 12.5 mg/dL (8.5-10.1); Potassium 4.5 mmol/L (3.5-5.1)
[2021-10-10 11:21] LABS: CRP High Sensitivity 2.09 mg/dL (< 0.3)
[2021-10-10] MEDS: InsuLIN R (HUMAN) 100 UNITS in SODIUM CHL 0.9% 99 ML IV SCH (11:30)
[2021-10-10 15:19] VITALS: BP 105/60
[2021-10-10] MEDS: fentaNYL Drip 2500mCg/250mlNS 250 ML IV SCH (17:19)
[2021-10-10 18:15] VITALS: BP 112/54
[2021-10-10] MEDS: PROPOFOL 100 ML IV SCH (18:17)
[2021-10-10] MEDS: ACETAMINOPHEN 325 MG TAB PO PRN (19:05)
[2021-10-10] MEDS: NOREPINEPHRINE 8 MG/250ML KIT 250 ML IV SCH (20:30)
[2021-10-10 22:10] VITALS: BP 99/52
[2021-10-11] MEDS: ACCU-CHEK COMFORT CURVE STRIP VI SCH ×15 (01:33→22:33)
[2021-10-11 02:04] VITALS: BP 105/57
[2021-10-11] MEDS: DOXYCYCLINE 100MG/250ML 250 ML IV SCH ×2 (06:26→18:33)
[2021-10-11 06:30] VITALS: BP 77/113
[2021-10-11 08:40] LABS: Basophils # (auto) 0 10 ^3/uL (0-0.2); Eosinophils # (auto) 0 10 ^3/uL (0-0.8); Lymphocytes # (auto) 0.3 10 ^3/uL (0.4-5.4); Monocytes # (auto) 0.3 10 ^3/uL (0-1.3); Neutrophils # (auto) 4.3 10 ^3/uL (1.6-8.6); White Blood Cell 4.9 10^3/uL (4.4-10.8)
[2021-10-11 08:45] LABS: Hematocrit 30.7 % (36.0-46.0); Hemoglobin 9.6 g/dL (12.2-16.2); Lymphocytes % (auto) 5.5 % (10.0-50.0); Mean Corpuscular Hemoglobin 25.7 pg (28.0-32.0); Mean Corpuscular Hgb Conc. 31.2 g/dL (32.0-36.0); Mean Corpuscular Volume 82.4 fL (80.0-100.0); Monocytes % (auto) 6.7 % (0.0-12.0); Neutrophils % (auto) 87.8 % (37.0-80.0); Nucleated Red Blood Cells % 0.1 %; Red Blood Cells 3.72 10^6/uL (4.0-5.20); Red Cell Distribution Width 15.9 % (11.8-14.3)
[2021-10-11 09:01] LABS: Calcium 12.6 mg/dL (8.5-10.1); Potassium 4.8 mmol/L (3.5-5.1)
[2021-10-11 09:12] LABS: BUN/Creatinine Ratio 51.2; Bilirubin, Total 0.3 mg/dL (0.2-1.0); CRP High Sensitivity 2.27 mg/dL (< 0.3); Total Protein 6.4 g/dL (6.4-8.2)
[2021-10-11] MEDS ORDERED: INSULIN LANTUS (GLARGINE) 1 /0.01ml (100units/ml) SC SCH (10:00)
[2021-10-11] MEDS: InsuLIN R (HUMAN) 100 UNITS in SODIUM CHL 0.9% 99 ML IV SCH ×2 (10:30→22:49)
[2021-10-11 10:36] VITALS: BP 108/58
[2021-10-11] MEDS: DexAMETHasone SOD PHOS 10MG/1ML VIAL INJ IV SCH (10:42)
[2021-10-11] MEDS: ZINC SULFATE 220mg CAP or TAB PO SCH (10:42)
[2021-10-11] MEDS: ACETAMINOPHEN 325 MG TAB PO PRN ×2 (10:42→17:02)
[2021-10-11] MEDS: ASCORBIC ACID 500 MG TAB PO SCH ×2 (10:43→22:21)
[2021-10-11] MEDS: ENOXAPARIN SOD 40 MG/0.4 ML SYRINGE SC SCH ×2 (10:44→22:22)
[2021-10-11 14:29] VITALS: BP 104/49
[2021-10-11] MEDS: SOD CHL 0.45% 1,000 ML IV SCH ×2 (15:54→17:06)
[2021-10-11] MEDS: fentaNYL Drip 2500mCg/250mlNS 250 ML IV SCH (17:05)
[2021-10-11] MEDS: MIDAZOLAM DRIP 50 mg/50mL 50 ML IV SCH (17:06)
[2021-10-11 18:00] VITALS: BP 107/52
[2021-10-11] MEDS: PROPOFOL 100 ML IV SCH (18:33)
[2021-10-11] MEDS: NOREPINEPHRINE 8 MG/250ML KIT 250 ML IV SCH (20:30)
[2021-10-11 22:10] VITALS: BP 122/58
[2021-10-11] MEDS ORDERED: DEXTROSE (50%) 50ML SYRG IV PRN (22:45)
[2021-10-12] VITALS (53 sets, daily range): BP systolic 105–127; BP diastolic 51–70
[2021-10-12] MEDS: ACCU-CHEK COMFORT CURVE STRIP VI SCH ×16 (01:46→22:33)
[2021-10-12 05:39] LABS: Basophils # (auto) 0 10 ^3/uL (0-0.2); Eosinophils # (auto) 0 10 ^3/uL (0-0.8); Lymphocytes # (auto) 0.3 10 ^3/uL (0.4-5.4); Monocytes # (auto) 0.4 10 ^3/uL (0-1.3); Monocytes % (auto) 6.1 % (0.0-12.0); Neutrophils # (auto) 5.9 10 ^3/uL (1.6-8.6); Nucleated Red Blood Cells % 0.1 %; White Blood Cell 6.6 10^3/uL (4.4-10.8)
[2021-10-12 05:42] LABS: Basophils % (auto) 0.1 % (0.0-2.0); Hemoglobin 9.3 g/dL (12.2-16.2); Lymphocytes % (auto) 4.6 % (10.0-50.0); Mean Corpuscular Hemoglobin 25.7 pg (28.0-32.0); Mean Corpuscular Hgb Conc. 31.1 g/dL (32.0-36.0); Mean Corpuscular Volume 82.6 fL (80.0-100.0); Neutrophils % (auto) 89.2 % (37.0-80.0); Red Blood Cells 3.63 10^6/uL (4.0-5.20); Red Cell Distribution Width 15.5 % (11.8-14.3)
[2021-10-12 05:51] LABS: Potassium 4.7 mmol/L (3.5-5.1)
[2021-10-12 05:56] LABS: BUN/Creatinine Ratio 71.8; CRP High Sensitivity 0.53 mg/dL (< 0.3); Calcium 12.8 mg/dL (8.5-10.1)
[2021-10-12] MEDS: DOXYCYCLINE 100MG/250ML 250 ML IV SCH ×2 (06:05→17:59)
[2021-10-12] MEDS: MIDAZOLAM DRIP 50 mg/50mL 50 ML IV SCH ×3 (07:56→17:59)
[2021-10-12] MEDS: ASCORBIC ACID 500 MG TAB PO SCH ×2 (10:43→21:18)
[2021-10-12] MEDS: ZINC SULFATE 220mg CAP or TAB PO SCH (10:43)
[2021-10-12] MEDS: DexAMETHasone SOD PHOS 10MG/1ML VIAL INJ IV SCH (10:44)
[2021-10-12] MEDS: ENOXAPARIN SOD 40 MG/0.4 ML SYRINGE SC SCH ×2 (10:44→21:18)
[2021-10-12] MEDS ORDERED: FUROSEMIDE 40 MG/4 ML VIAL IV ONE (11:30)
[2021-10-12] MEDS: ALBUTEROL SULF 2.5 MG/0.5ML(0.5%) NEB SOLN NEB PRN (11:37)
[2021-10-12] MEDS: InsuLIN R (HUMAN) 100 UNITS in SODIUM CHL 0.9% 99 ML IV SCH (12:57)
[2021-10-12] MEDS: INSULIN LANTUS (GLARGINE) 1 /0.01ml (100units/ml) SC SCH (13:00)
[2021-10-12] MEDS: fentaNYL Drip 2500mCg/250mlNS 250 ML IV SCH (14:51)
[2021-10-12] MEDS: SOD CHL 0.45% 1,000 ML IV SCH (16:48)
[2021-10-12] MEDS: PROPOFOL 100 ML IV SCH (19:15)
[2021-10-12] MEDS: NOREPINEPHRINE 8 MG/250ML KIT 250 ML IV SCH (20:30)
[2021-10-13] VITALS (51 sets, daily range): BP systolic 114–142; BP diastolic 55–72
[2021-10-13] MEDS: ACCU-CHEK COMFORT CURVE STRIP VI SCH ×16 (00:08→22:34)
[2021-10-13] MEDS: SOD CHL 0.45% 1,000 ML IV SCH ×2 (05:00→18:20)
[2021-10-13] MEDS: DOXYCYCLINE 100MG/250ML 250 ML IV SCH ×2 (05:10→17:44)
[2021-10-13 05:13] LABS: Basophils # (auto) 0 10 ^3/uL (0-0.2); Eosinophils # (auto) 0 10 ^3/uL (0-0.8); Hemoglobin 9.3 g/dL (12.2-16.2); Lymphocytes # (auto) 0.3 10 ^3/uL (0.4-5.4); Mean Corpuscular Hemoglobin 25.4 pg (28.0-32.0); Monocytes # (auto) 0.5 10 ^3/uL (0-1.3); Red Cell Distribution Width 15.8 % (11.8-14.3)
[2021-10-13 05:15] LABS: Hematocrit 30.1 % (36.0-46.0); Lymphocytes % (auto) 3.6 % (10.0-50.0); Mean Corpuscular Hgb Conc. 30.8 g/dL (32.0-36.0); Mean Corpuscular Volume 82.5 fL (80.0-100.0); Monocytes % (auto) 6.4 % (0.0-12.0); Neutrophils # (auto) 7.3 10 ^3/uL (1.6-8.6); Nucleated Red Blood Cells % 0.1 %; Red Blood Cells 3.65 10^6/uL (4.0-5.20); White Blood Cell 8.1 10^3/uL (4.4-10.8)
[2021-10-13] MEDS: InsuLIN R (HUMAN) 100 UNITS in SODIUM CHL 0.9% 99 ML IV SCH ×2 (05:17→07:36)
[2021-10-13 05:19] LABS: BUN/Creatinine Ratio 71.1; CRP High Sensitivity 0.14 mg/dL (< 0.3); Calcium 12.7 mg/dL (8.5-10.1); Potassium 4.9 mmol/L (3.5-5.1)
[2021-10-13] MEDS: ZINC SULFATE 220mg CAP or TAB PO SCH (10:00)
[2021-10-13] MEDS: ENOXAPARIN SOD 40 MG/0.4 ML SYRINGE SC SCH ×2 (10:00→21:25)
[2021-10-13] MEDS: DexAMETHasone SOD PHOS 10MG/1ML VIAL INJ IV SCH (10:00)
[2021-10-13] MEDS: INSULIN LANTUS (GLARGINE) 1 /0.01ml (100units/ml) SC SCH (10:00)
[2021-10-13] MEDS: ASCORBIC ACID 500 MG TAB PO SCH ×2 (10:00→21:24)
[2021-10-13] MEDS ORDERED: Nepro With Carb Steady 1 Liter Bottle GT SCH (15:45)
[2021-10-13] MEDS: fentaNYL Drip 2500mCg/250mlNS 250 ML IV SCH (17:52)
[2021-10-13] MEDS: PROPOFOL 100 ML IV SCH (19:15)
[2021-10-13] MEDS: NOREPINEPHRINE 8 MG/250ML KIT 250 ML IV SCH (20:29)
[2021-10-14] VITALS (57 sets, daily range): BP systolic 120–143; BP diastolic 59–78
[2021-10-14] MEDS: ACCU-CHEK COMFORT CURVE STRIP VI SCH ×16 (00:09→22:30)
[2021-10-14 05:12] LABS: Basophils # (auto) 0 10 ^3/uL (0-0.2); Eosinophils # (auto) 0 10 ^3/uL (0-0.8); Hematocrit 29.5 % (36.0-46.0); Lymphocytes # (auto) 0.4 10 ^3/uL (0.4-5.4); Red Blood Cells 3.61 10^6/uL (4.0-5.20)
[2021-10-14 05:14] LABS: Eosinophils % (auto) 0.1 % (0.0-7.0); Hemoglobin 9.3 g/dL (12.2-16.2); Lymphocytes % (auto) 4.9 % (10.0-50.0); Mean Corpuscular Hemoglobin 25.7 pg (28.0-32.0); Mean Corpuscular Hgb Conc. 31.5 g/dL (32.0-36.0); Mean Corpuscular Volume 81.8 fL (80.0-100.0); Monocytes # (auto) 0.5 10 ^3/uL (0-1.3); Monocytes % (auto) 6.4 % (0.0-12.0); Neutrophils % (auto) 88.6 % (37.0-80.0); Nucleated Red Blood Cells % 0.2 %; Red Cell Distribution Width 15.3 % (11.8-14.3); White Blood Cell 7.9 10^3/uL (4.4-10.8)
[2021-10-14 05:41] LABS: Potassium 4.3 mmol/L (3.5-5.1)
[2021-10-14] MEDS: SOD CHL 0.45% 1,000 ML IV SCH ×5 (05:45→22:21)
[2021-10-14] MEDS: DOXYCYCLINE 100MG/250ML 250 ML IV SCH ×2 (05:45→17:28)
[2021-10-14 05:50] LABS: BUN/Creatinine Ratio 70.3; CRP High Sensitivity 1.27 mg/dL (< 0.3)
[2021-10-14] MEDS: ALBUTEROL SULF 2.5 MG/0.5ML(0.5%) NEB SOLN NEB PRN (06:22)
[2021-10-14] MEDS ORDERED: ZOLEDRONIC ACID 4 MG in SODIUM CHL 0.9% 100 ML IV ONE (07:30)
[2021-10-14] MEDS: DexAMETHasone SOD PHOS 10MG/1ML VIAL INJ IV SCH (12:01)
[2021-10-14] MEDS: ZINC SULFATE 220mg CAP or TAB PO SCH (12:02)
[2021-10-14] MEDS: ASCORBIC ACID 500 MG TAB PO SCH ×2 (12:03→22:20)
[2021-10-14] MEDS: ENOXAPARIN SOD 40 MG/0.4 ML SYRINGE SC SCH ×2 (12:04→22:20)
[2021-10-14] MEDS: INSULIN LANTUS (GLARGINE) 1 /0.01ml (100units/ml) SC SCH (12:04)
[2021-10-14] MEDS: MIDAZOLAM DRIP 50 mg/50mL 50 ML IV SCH (17:30)
[2021-10-14] MEDS: PROPOFOL 100 ML IV SCH (19:15)
[2021-10-14] MEDS: NOREPINEPHRINE 8 MG/250ML KIT 250 ML IV SCH (20:30)
[2021-10-14] MEDS: InsuLIN R (HUMAN) 100 UNITS in SODIUM CHL 0.9% 99 ML IV SCH (21:00)
[2021-10-15] VITALS (97 sets, daily range): BP systolic 126–194; BP diastolic 63–91
[2021-10-15] MEDS: ACCU-CHEK COMFORT CURVE STRIP VI SCH ×14 (01:49→22:30)
[2021-10-15] MEDS: SOD CHL 0.45% 1,000 ML IV SCH ×3 (03:51→22:55)
[2021-10-15 05:52] LABS: Basophils # (auto) 0 10 ^3/uL (0-0.2); Basophils % (auto) 0.1 % (0.0-2.0); Eosinophils # (auto) 0 10 ^3/uL (0-0.8); Hemoglobin 9.2 g/dL (12.2-16.2); Lymphocytes # (auto) 0.3 10 ^3/uL (0.4-5.4)
[2021-10-15 05:56] LABS: Hematocrit 29.5 % (36.0-46.0); Mean Corpuscular Hemoglobin 25.5 pg (28.0-32.0); Mean Corpuscular Hgb Conc. 31.2 g/dL (32.0-36.0); Mean Corpuscular Volume 81.6 fL (80.0-100.0); Monocytes # (auto) 0.6 10 ^3/uL (0-1.3); Monocytes % (auto) 6.7 % (0.0-12.0); Neutrophils # (auto) 7.6 10 ^3/uL (1.6-8.6); Neutrophils % (auto) 90.2 % (37.0-80.0); Nucleated Red Blood Cells % 0.1 %; Red Blood Cells 3.61 10^6/uL (4.0-5.20); Red Cell Distribution Width 15.6 % (11.8-14.3); White Blood Cell 8.4 10^3/uL (4.4-10.8)
[2021-10-15] MEDS: Glucerna 1.2 Cal 1Liter BOTTLE GT SCH (06:00)
[2021-10-15 06:13] LABS: Albumin 1.9 g/dL (3.4-5.0); Calcium 12.7 mg/dL (8.5-10.1); Potassium 4.6 mmol/L (3.5-5.1)
[2021-10-15 06:17] LABS: BUN/Creatinine Ratio 66.1; Bilirubin, Total 0.3 mg/dL (0.2-1.0); Total Protein 5.8 g/dL (6.4-8.2)
[2021-10-15] MEDS: DOXYCYCLINE 100MG/250ML 250 ML IV SCH ×2 (06:47→19:00)
[2021-10-15] MEDS: DexAMETHasone SOD PHOS 10MG/1ML VIAL INJ IV SCH (09:26)
[2021-10-15] MEDS: ZINC SULFATE 220mg CAP or TAB PO SCH (09:26)
[2021-10-15] MEDS: ASCORBIC ACID 500 MG TAB PO SCH ×2 (09:26→21:44)
[2021-10-15] MEDS: ENOXAPARIN SOD 40 MG/0.4 ML SYRINGE SC SCH ×2 (09:27→21:48)
[2021-10-15] MEDS ORDERED: ZOLEDRONIC ACID 4 MG in SODIUM CHL 0.9% 100 ML IV ONE (16:30)
[2021-10-15] MEDS: MIDAZOLAM DRIP 50 mg/50mL 50 ML IV SCH (17:30)
[2021-10-15] MEDS ORDERED: EPINEPHrine HCL 250 ML IV ONE (17:44)
[2021-10-15] MEDS: PROPOFOL 100 ML IV SCH (19:15)
[2021-10-15] MEDS: NOREPINEPHRINE 8 MG/250ML KIT 250 ML IV SCH (20:30)
[2021-10-15] MEDS: INSULIN LANTUS (GLARGINE) 1 /0.01ml (100units/ml) SC SCH (21:47)
[2021-10-16] VITALS (73 sets, daily range): BP systolic 111–189; BP diastolic 50–84
[2021-10-16] MEDS: PROPOFOL 100 ML IV SCH ×3 (01:11→22:50)
[2021-10-16] MEDS: ACCU-CHEK COMFORT CURVE STRIP VI SCH ×13 (01:51→22:00)
[2021-10-16] MEDS: fentaNYL Drip 2500mCg/250mlNS 250 ML IV SCH (02:17)
[2021-10-16] MEDS: InsuLIN R (HUMAN) 100 UNITS in SODIUM CHL 0.9% 99 ML IV SCH ×2 (03:15→22:00)
[2021-10-16] MEDS ORDERED: hydrALAZINE HCL 20 MG/ML VL ONE (03:30)
[2021-10-16] MEDS ORDERED: hydrALAZINE HCL 20 MG/ML VL IV PRN (03:30)
[2021-10-16 05:51] LABS: Potassium 4.1 mmol/L (3.5-5.1)
[2021-10-16 05:56] LABS: BUN/Creatinine Ratio 77.3; Calcium 12.9 mg/dL (8.5-10.1)
[2021-10-16] MEDS: DOXYCYCLINE 100MG/250ML 250 ML IV SCH ×2 (06:27→18:30)
[2021-10-16] MEDS: SOD CHL 0.45% 1,000 ML IV SCH ×3 (07:30→23:55)
[2021-10-16] MEDS: DexAMETHasone SOD PHOS 10MG/1ML VIAL INJ IV SCH (10:35)
[2021-10-16] MEDS: ASCORBIC ACID 500 MG TAB PO SCH ×2 (10:36→22:40)
[2021-10-16] MEDS: ENOXAPARIN SOD 40 MG/0.4 ML SYRINGE SC SCH ×2 (10:36→22:41)
[2021-10-16] MEDS: ZINC SULFATE 220mg CAP or TAB PO SCH (10:36)
[2021-10-16] MEDS: hydrALAZINE HCL 25 MG TAB GT SCH ×2 (16:03→22:00)
[2021-10-16] MEDS: NOREPINEPHRINE 8 MG/250ML KIT 250 ML IV SCH (20:30)
[2021-10-16] MEDS: INSULIN LANTUS (GLARGINE) 1 /0.01ml (100units/ml) SC SCH (22:40)
[2021-10-16] MEDS: CALCITONIN 400unit/2ml Vial (200unit/ml) SC SCH (23:54)
[2021-10-17] VITALS (95 sets, daily range): BP systolic 102–168; BP diastolic 50–80
[2021-10-17] MEDS: ACCU-CHEK COMFORT CURVE STRIP VI SCH ×12 (02:00→21:06)
[2021-10-17] MEDS: SOD CHL 0.45% 1,000 ML IV SCH ×6 (05:20→23:13)
[2021-10-17] MEDS: PROPOFOL 100 ML IV SCH ×3 (05:21→18:47)
[2021-10-17 05:48] LABS: Basophils # (auto) 0 10 ^3/uL (0-0.2); Eosinophils # (auto) 0.1 10 ^3/uL (0-0.8); Hemoglobin 8.7 g/dL (12.2-16.2); Lymphocytes # (auto) 0.4 10 ^3/uL (0.4-5.4); Monocytes # (auto) 0.8 10 ^3/uL (0-1.3); Nucleated Red Blood Cells % 0.1 %
[2021-10-17 05:52] LABS: Basophils % (auto) 0.1 % (0.0-2.0); Hematocrit 27.5 % (36.0-46.0); Mean Corpuscular Hemoglobin 25.3 pg (28.0-32.0); Mean Corpuscular Hgb Conc. 31.5 g/dL (32.0-36.0); Mean Corpuscular Volume 80.2 fL (80.0-100.0); Neutrophils # (auto) 7.1 10 ^3/uL (1.6-8.6); Neutrophils % (auto) 83.9 % (37.0-80.0); Red Blood Cells 3.43 10^6/uL (4.0-5.20); Red Cell Distribution Width 15.6 % (11.8-14.3); White Blood Cell 8.4 10^3/uL (4.4-10.8)
[2021-10-17 06:21] LABS: Calcium 11.1 mg/dL (8.5-10.1); Potassium 3.5 mmol/L (3.5-5.1)
[2021-10-17] MEDS: hydrALAZINE HCL 25 MG TAB GT SCH ×3 (06:27→21:05)
[2021-10-17] MEDS: DOXYCYCLINE 100MG/250ML 250 ML IV SCH ×2 (06:27→18:47)
[2021-10-17 06:31] LABS: Albumin 1.7 g/dL (3.4-5.0); BUN/Creatinine Ratio 48.5; Bilirubin, Total 0.3 mg/dL (0.2-1.0); CRP High Sensitivity 6.67 mg/dL (< 0.3); Total Protein 4.9 g/dL (6.4-8.2)
[2021-10-17] MEDS ORDERED: INSULIN LANTUS (GLARGINE) 1 /0.01ml (100units/ml) SC SCH (07:00)
[2021-10-17] MEDS: fentaNYL Drip 2500mCg/250mlNS 250 ML IV SCH ×2 (07:39→14:55)
[2021-10-17] MEDS: MIDAZOLAM DRIP 50 mg/50mL 50 ML IV SCH ×2 (07:40→17:30)
[2021-10-17] MEDS: InsuLIN R (HUMAN) 100 UNITS in SODIUM CHL 0.9% 99 ML IV SCH (08:19)
[2021-10-17] MEDS: ZINC SULFATE 220mg CAP or TAB PO SCH (10:00)
[2021-10-17] MEDS: DexAMETHasone SOD PHOS 10MG/1ML VIAL INJ IV SCH (10:01)
[2021-10-17] MEDS: ENOXAPARIN SOD 40 MG/0.4 ML SYRINGE SC SCH ×2 (10:02→21:06)
[2021-10-17] MEDS: ASCORBIC ACID 500 MG TAB PO SCH ×2 (10:02→21:05)
[2021-10-17] MEDS: CALCITONIN 400unit/2ml Vial (200unit/ml) SC SCH (12:01)
[2021-10-17] MEDS: POTASSIUM CHL 20MEQ/50ML 50 ML IV SCH ×2 (17:01→18:09)
[2021-10-17] MEDS: NOREPINEPHRINE 8 MG/250ML KIT 250 ML IV SCH (19:47)
[2021-10-17] MEDS: INSULIN LANTUS (GLARGINE) 1 /0.01ml (100units/ml) SC SCH (21:07)
[2021-10-18] VITALS (95 sets, daily range): BP systolic 104–153; BP diastolic 44–73
[2021-10-18] MEDS: CALCITONIN 400unit/2ml Vial (200unit/ml) SC SCH
[2021-10-18] MEDS: InsuLIN R (HUMAN) 100 UNITS in SODIUM CHL 0.9% 99 ML IV SCH ×2
[2021-10-18] MEDS: ACCU-CHEK COMFORT CURVE STRIP VI SCH ×10 (02:12→18:08)
[2021-10-18] MEDS: PROPOFOL 100 ML IV SCH ×2 (03:34→06:32)
[2021-10-18 06:14] LABS: Calcium 10.4 mg/dL (8.5-10.1)
[2021-10-18] MEDS: hydrALAZINE HCL 25 MG TAB GT SCH ×2 (06:30→14:05)
[2021-10-18] MEDS: INSULIN LANTUS (GLARGINE) 1 /0.01ml (100units/ml) SC SCH (06:31)
[2021-10-18] MEDS: DOXYCYCLINE 100MG/250ML 250 ML IV SCH ×2 (06:32→18:30)
[2021-10-18] MEDS: ENOXAPARIN SOD 40 MG/0.4 ML SYRINGE SC SCH (09:33)
[2021-10-18] MEDS: DexAMETHasone SOD PHOS 10MG/1ML VIAL INJ IV SCH (09:33)
[2021-10-18] MEDS: ZINC SULFATE 220mg CAP or TAB PO SCH (09:33)
[2021-10-18] MEDS: ASCORBIC ACID 500 MG TAB PO SCH (09:34)
[2021-10-18] MEDS: SOD CHL 0.45% 1,000 ML IV SCH ×2 (12:43→17:12)
[2021-10-18] MEDS: MIDAZOLAM DRIP 50 mg/50mL 50 ML IV SCH (17:30)
[2021-10-18] MEDS: fentaNYL Drip 2500mCg/250mlNS 250 ML IV SCH (17:30)
[2021-10-19] VITALS (80 sets, daily range): BP systolic 84–168; BP diastolic 36–85
[2021-10-19] MEDS: ACCU-CHEK COMFORT CURVE STRIP VI SCH ×9 (01:31→18:02)
[2021-10-19] MEDS: NOREPINEPHRINE 8 MG/250ML KIT 250 ML IV SCH ×2 (01:31→09:30)
[2021-10-19] MEDS: hydrALAZINE HCL 25 MG TAB GT SCH ×4 (01:32→19:18)
[2021-10-19] MEDS: ASCORBIC ACID 500 MG TAB PO SCH ×2 (01:32→09:28)
[2021-10-19] MEDS: INSULIN LANTUS (GLARGINE) 1 /0.01ml (100units/ml) SC SCH ×2 (01:33→07:30)
[2021-10-19] MEDS: ENOXAPARIN SOD 40 MG/0.4 ML SYRINGE SC SCH ×2 (01:33→09:29)
[2021-10-19] MEDS: DOXYCYCLINE 100MG/250ML 250 ML IV SCH (06:03)
[2021-10-19 06:25] LABS: Basophils # (auto) 0 10 ^3/uL (0-0.2); Hemoglobin 8.8 g/dL (12.2-16.2); Monocytes # (auto) 0.8 10 ^3/uL (0-1.3)
[2021-10-19 06:28] LABS: Basophils % (auto) 0.3 % (0.0-2.0); Eosinophils # (auto) 0.1 10 ^3/uL (0-0.8); Eosinophils % (auto) 0.6 % (0.0-7.0); Hematocrit 27.1 % (36.0-46.0); Lymphocytes # (auto) 0.7 10 ^3/uL (0.4-5.4); Lymphocytes % (auto) 6.1 % (10.0-50.0); Mean Corpuscular Hemoglobin 25.7 pg (28.0-32.0); Mean Corpuscular Hgb Conc. 32.4 g/dL (32.0-36.0); Mean Corpuscular Volume 79.5 fL (80.0-100.0); Monocytes % (auto) 7.3 % (0.0-12.0); Neutrophils # (auto) 9.8 10 ^3/uL (1.6-8.6); Neutrophils % (auto) 85.7 % (37.0-80.0); Red Blood Cells 3.41 10^6/uL (4.0-5.20); Red Cell Distribution Width 15.7 % (11.8-14.3); White Blood Cell 11.4 10^3/uL (4.4-10.8)
[2021-10-19 06:33] LABS: Calcium 10.1 mg/dL (8.5-10.1); Potassium 3.6 mmol/L (3.5-5.1)
[2021-10-19] MEDS: InsuLIN R (HUMAN) 100 UNITS in SODIUM CHL 0.9% 99 ML IV SCH (07:01)
[2021-10-19] MEDS: ACETAMINOPHEN 325 MG TAB PO PRN (07:30)
[2021-10-19] MEDS ORDERED: DEXTROSE (50%) 50ML SYRG IV PRN ×2 (08:30→11:00)
[2021-10-19] MEDS ORDERED: InsuLIN R (HUMAN) 100 UNITS in SODIUM CHL 0.9% 99 ML IV SCH (08:30)
[2021-10-19] MEDS: SOD CHL 0.45% 1,000 ML IV SCH (08:45)
[2021-10-19] MEDS: DexAMETHasone SOD PHOS 10MG/1ML VIAL INJ IV SCH (09:28)
[2021-10-19] MEDS: ZINC SULFATE 220mg CAP or TAB PO SCH (09:28)
[2021-10-19] MEDS: LORazepam 0.5 MG TAB PO PRN (12:00)
[2021-10-19] MEDS: InsuLIN REG 1unit/0.01ml Soln (100units/ml) SC SCH ×2 (12:00→18:03)
[2021-10-19] MEDS: PROPOFOL 100 ML IV SCH (12:30)
[2021-10-19] MEDS ORDERED: VANCOMYCIN PER PHARMACY 0 MG IV SCH (14:30)
[2021-10-19] MEDS: MEROPENEM 1GM IVPB 100 ML IV SCH (15:17)
[2021-10-19] MEDS: Glucerna 1.2 Cal 1Liter BOTTLE GT SCH (16:00)
[2021-10-19] MEDS ORDERED: VANCOMYCIN 1GM/250ML 250 ML IV ONE ×2 (16:00→17:00)
[2021-10-19] MEDS: fentaNYL Drip 2500mCg/250mlNS 250 ML IV SCH (17:30)
[2021-10-19] MEDS: MIDAZOLAM DRIP 50 mg/50mL 50 ML IV SCH (17:30)
[2021-10-19] MEDS: ALBUTEROL SULF 2.5 MG/0.5ML(0.5%) NEB SOLN NEB PRN (18:56)
[2021-10-20] VITALS (68 sets, daily range): BP systolic 90–136; BP diastolic 42–73
[2021-10-20] MEDS: SOD CHL 0.45% 1,000 ML IV SCH ×5 (00:55→23:18)
[2021-10-20] MEDS: ASCORBIC ACID 500 MG TAB PO SCH ×3 (00:56→23:20)
[2021-10-20] MEDS: MEROPENEM 1GM IVPB 100 ML IV SCH ×4 (00:56→23:19)
[2021-10-20] MEDS: INSULIN LANTUS (GLARGINE) 1 /0.01ml (100units/ml) SC SCH ×3 (00:59→23:35)
[2021-10-20] MEDS: ENOXAPARIN SOD 40 MG/0.4 ML SYRINGE SC SCH ×3 (00:59→23:20)
[2021-10-20] MEDS: InsuLIN REG 1unit/0.01ml Soln (100units/ml) SC SCH ×5 (01:00→23:36)
[2021-10-20] MEDS: ACCU-CHEK COMFORT CURVE STRIP VI SCH ×5 (01:00→23:28)
[2021-10-20] MEDS: hydrALAZINE HCL 25 MG TAB GT SCH ×3 (01:01→22:00)
[2021-10-20] MEDS: PROPOFOL 100 ML IV SCH ×3 (03:05→13:05)
[2021-10-20] MEDS: fentaNYL Drip 2500mCg/250mlNS 250 ML IV SCH ×2 (03:40→18:11)
[2021-10-20 06:20] LABS: Basophils # (auto) 0 10 ^3/uL (0-0.2); Eosinophils # (auto) 0 10 ^3/uL (0-0.8); Eosinophils % (auto) 0.1 % (0.0-7.0); Hemoglobin 7.1 g/dL (12.2-16.2); Monocytes # (auto) 0.8 10 ^3/uL (0-1.3); Nucleated Red Blood Cells % 0.1 %
[2021-10-20 06:24] LABS: Basophils % (auto) 0.2 % (0.0-2.0); Hematocrit 21.7 % (36.0-46.0); Lymphocytes # (auto) 0.7 10 ^3/uL (0.4-5.4); Lymphocytes % (auto) 6.7 % (10.0-50.0); Mean Corpuscular Hgb Conc. 32.7 g/dL (32.0-36.0); Mean Corpuscular Volume 79.3 fL (80.0-100.0); Monocytes % (auto) 6.9 % (0.0-12.0); Neutrophils # (auto) 9.4 10 ^3/uL (1.6-8.6); Neutrophils % (auto) 86.1 % (37.0-80.0); Red Blood Cells 2.74 10^6/uL (4.0-5.20)
[2021-10-20 06:38] LABS: Potassium 3.4 mmol/L (3.5-5.1)
[2021-10-20 06:43] LABS: Albumin 1.4 g/dL (3.4-5.0); Calcium 8.9 mg/dL (8.5-10.1)
[2021-10-20 06:46] LABS: Bilirubin, Total 0.3 mg/dL (0.2-1.0); Total Protein 4.3 g/dL (6.4-8.2)
[2021-10-20 09:21] LABS: Hematocrit 23.1 % (36.0-46.0); Hemoglobin 7.6 g/dL (12.2-16.2); Mean Corpuscular Hemoglobin 26.1 pg (28.0-32.0); Mean Corpuscular Volume 78.9 fL (80.0-100.0); Red Blood Cells 2.93 10^6/uL (4.0-5.20); Red Cell Distribution Width 15.8 % (11.8-14.3); White Blood Cell 9.8 10^3/uL (4.4-10.8)
[2021-10-20 09:22] LABS: Band Neutrophils % (manual) 0; Basophils % (manual) 0 (0.0-2.0); Blast Cells 0; Eosinophils % (manual) 0 (0-7); Metamyelocytes % 0; Myelocytes % 0; Promyelocytes % 0; Reactive Lymphocytes 0
[2021-10-20] MEDS: DexAMETHasone SOD PHOS 10MG/1ML VIAL INJ IV SCH (10:01)
[2021-10-20] MEDS ORDERED: POTASSIUM CHL 20 Meq TABLET PO ONE (10:15)
[2021-10-20] MEDS: ALBUTEROL SULF 2.5 MG/0.5ML(0.5%) NEB SOLN NEB PRN (10:59)
[2021-10-20] MEDS: SODIUM FERR GLUC 62.5MG/5ML 125 MG in SODIUM CHL 0.9% 100 ML IV SCH ×2 (12:26→13:26)
[2021-10-20] MEDS ORDERED: EPINEPHrine HCL 1 MG/1 ML AMP ONE (12:36)
[2021-10-20] MEDS ORDERED: MIDAZOLAM HCL 5 MG/ML-1ML VIAL ONE (12:36)
[2021-10-20] MEDS ORDERED: LIDOCAINE 2%HCL (LOCAL ANESTH.) INJ 20ML MDV ONE (12:36)
[2021-10-20] MEDS ORDERED: LIDOCAINE HCL 2% TOP JELLY 5ML TOP ONE (12:36)
[2021-10-20] MEDS ORDERED: GLYCOPYRROLATE 0.2 MG/ML 1ML VIAL ONE (12:36)
[2021-10-20] MEDS ORDERED: fentaNYL CITRATE 100 MCG/2 ML VL ONE (12:37)
[2021-10-20] MEDS ORDERED: SODIUM CHLORIDE LOCK 20 ML ONE (12:37)
[2021-10-20 12:52] LABS: Lymphocytes % (manual) 12 (10.0-50.0); Monocytes % (manual) 9 (0-12)
[2021-10-20] MEDS: ZINC SULFATE 220mg CAP or TAB PO SCH (13:00)
[2021-10-20] MEDS: MIDAZOLAM DRIP 50 mg/50mL 50 ML IV SCH (17:30)
[2021-10-20] MEDS: NOREPINEPHRINE 8 MG/250ML KIT 250 ML IV SCH (20:30)
[2021-10-21] VITALS (56 sets, daily range): BP systolic 96–155; BP diastolic 42–75
[2021-10-21] MEDS: fentaNYL Drip 2500mCg/250mlNS 250 ML IV SCH (01:34)
[2021-10-21] MEDS: hydrALAZINE HCL 25 MG TAB GT SCH ×3 (04:04→22:00)
[2021-10-21 06:07] LABS: Basophils # (auto) 0 10 ^3/uL (0-0.2); Basophils % (auto) 0.1 % (0.0-2.0); Eosinophils # (auto) 0 10 ^3/uL (0-0.8); Lymphocytes # (auto) 0.8 10 ^3/uL (0.4-5.4); Lymphocytes % (auto) 8.4 % (10.0-50.0); Monocytes # (auto) 0.7 10 ^3/uL (0-1.3); White Blood Cell 9.4 10^3/uL (4.4-10.8)
[2021-10-21 06:08] LABS: Eosinophils % (auto) 0.1 % (0.0-7.0); Hematocrit 24.8 % (36.0-46.0); Hemoglobin 7.9 g/dL (12.2-16.2); Mean Corpuscular Hemoglobin 25.4 pg (28.0-32.0); Mean Corpuscular Hgb Conc. 31.8 g/dL (32.0-36.0); Mean Corpuscular Volume 79.9 fL (80.0-100.0); Monocytes % (auto) 7.3 % (0.0-12.0); Neutrophils # (auto) 7.9 10 ^3/uL (1.6-8.6); Neutrophils % (auto) 84.1 % (37.0-80.0); Nucleated Red Blood Cells % 0.1 %; Red Cell Distribution Width 15.5 % (11.8-14.3)
[2021-10-21 06:14] LABS: BUN/Creatinine Ratio 41.9; Calcium 10.1 mg/dL (8.5-10.1); Potassium 4.1 mmol/L (3.5-5.1)
[2021-10-21] MEDS: MEROPENEM 1GM IVPB 100 ML IV SCH ×2 (06:15→14:00)
[2021-10-21] MEDS: InsuLIN REG 1unit/0.01ml Soln (100units/ml) SC SCH ×3 (06:16→17:57)
[2021-10-21] MEDS: ACCU-CHEK COMFORT CURVE STRIP VI SCH ×3 (06:17→17:53)
[2021-10-21] MEDS: INSULIN LANTUS (GLARGINE) 1 /0.01ml (100units/ml) SC SCH (06:17)
[2021-10-21] MEDS: ZINC SULFATE 220mg CAP or TAB PO SCH (10:58)
[2021-10-21] MEDS: ASCORBIC ACID 500 MG TAB PO SCH ×2 (10:58→22:00)
[2021-10-21] MEDS: DexAMETHasone SOD PHOS 10MG/1ML VIAL INJ IV SCH (10:58)
[2021-10-21] MEDS: ENOXAPARIN SOD 40 MG/0.4 ML SYRINGE SC SCH (11:02)
[2021-10-21] MEDS: MIDAZOLAM DRIP 50 mg/50mL 50 ML IV SCH (17:30)
[2021-10-21] MEDS: PROPOFOL 100 ML IV SCH (19:15)
[2021-10-21] MEDS: NOREPINEPHRINE 8 MG/250ML KIT 250 ML IV SCH (20:30)
[2021-10-22] VITALS (64 sets, daily range): BP systolic 87–132; BP diastolic 45–67
[2021-10-22] MEDS: SOD CHL 0.45% 1,000 ML IV SCH ×3 (00:07→16:45)
[2021-10-22] MEDS: MEROPENEM 1GM IVPB 100 ML IV SCH ×4 (00:08→22:32)
[2021-10-22] MEDS: ENOXAPARIN SOD 40 MG/0.4 ML SYRINGE SC SCH ×3 (00:09→22:33)
[2021-10-22] MEDS: INSULIN LANTUS (GLARGINE) 1 /0.01ml (100units/ml) SC SCH ×2 (00:12→05:47)
[2021-10-22] MEDS: ACCU-CHEK COMFORT CURVE STRIP VI SCH ×4 (00:13→18:00)
[2021-10-22] MEDS: InsuLIN REG 1unit/0.01ml Soln (100units/ml) SC SCH ×4 (00:13→18:00)
[2021-10-22] MEDS: hydrALAZINE HCL 25 MG TAB GT SCH ×3 (03:34→22:00)
[2021-10-22] MEDS: DexAMETHasone SOD PHOS 10MG/1ML VIAL INJ IV SCH (09:36)
[2021-10-22] MEDS: ASCORBIC ACID 500 MG TAB PO SCH ×2 (09:38→22:32)
[2021-10-22] MEDS: ZINC SULFATE 220mg CAP or TAB PO SCH (09:38)
[2021-10-22] MEDS: SODIUM FERR GLUC 62.5MG/5ML 125 MG in SODIUM CHL 0.9% 100 ML IV SCH (12:00)
[2021-10-22] MEDS: fentaNYL Drip 2500mCg/250mlNS 250 ML IV SCH (17:30)
[2021-10-22] MEDS: MIDAZOLAM DRIP 50 mg/50mL 50 ML IV SCH (17:30)
[2021-10-22] MEDS: PROPOFOL 100 ML IV SCH (19:15)
[2021-10-22] MEDS: NOREPINEPHRINE 8 MG/250ML KIT 250 ML IV SCH (22:31)
[2021-10-23] VITALS (51 sets, daily range): BP systolic 88–140; BP diastolic 38–64
[2021-10-23] MEDS: ACCU-CHEK COMFORT CURVE STRIP VI SCH ×5 (01:49→23:34)
[2021-10-23] MEDS: INSULIN LANTUS (GLARGINE) 1 /0.01ml (100units/ml) SC SCH ×3 (03:07→23:32)
[2021-10-23] MEDS: SOD CHL 0.45% 1,000 ML IV SCH ×3 (03:07→23:32)
[2021-10-23] MEDS: InsuLIN REG 1unit/0.01ml Soln (100units/ml) SC SCH ×4 (06:00→23:33)
[2021-10-23] MEDS: hydrALAZINE HCL 25 MG TAB GT SCH ×3 (06:00→23:31)
[2021-10-23] MEDS: MEROPENEM 1GM IVPB 100 ML IV SCH ×3 (06:00→23:31)
[2021-10-23] MEDS: ASCORBIC ACID 500 MG TAB PO SCH ×2 (09:55→23:31)
[2021-10-23] MEDS: ENOXAPARIN SOD 40 MG/0.4 ML SYRINGE SC SCH ×2 (09:55→23:32)
[2021-10-23] MEDS: DexAMETHasone SOD PHOS 10MG/1ML VIAL INJ IV SCH (09:55)
[2021-10-23] MEDS: ZINC SULFATE 220mg CAP or TAB PO SCH (09:55)
[2021-10-23] MEDS: SODIUM FERR GLUC 62.5MG/5ML 125 MG in SODIUM CHL 0.9% 100 ML IV SCH (12:00)
[2021-10-23 14:08] LABS: Basophils # (auto) 0 10 ^3/uL (0-0.2); Eosinophils # (auto) 0.1 10 ^3/uL (0-0.8); Hemoglobin 8.4 g/dL (12.2-16.2); Lymphocytes # (auto) 1.1 10 ^3/uL (0.4-5.4); Monocytes # (auto) 0.5 10 ^3/uL (0-1.3); Neutrophils # (auto) 5.6 10 ^3/uL (1.6-8.6)
[2021-10-23 14:11] LABS: Basophils % (auto) 0.2 % (0.0-2.0); Eosinophils % (auto) 1.3 % (0.0-7.0); Hematocrit 26.1 % (36.0-46.0); Lymphocytes % (auto) 14.5 % (10.0-50.0); Mean Corpuscular Hemoglobin 25.6 pg (28.0-32.0); Mean Corpuscular Hgb Conc. 32.1 g/dL (32.0-36.0); Monocytes % (auto) 7.1 % (0.0-12.0); Neutrophils % (auto) 76.9 % (37.0-80.0); Red Blood Cells 3.26 10^6/uL (4.0-5.20); Red Cell Distribution Width 15.8 % (11.8-14.3); White Blood Cell 7.3 10^3/uL (4.4-10.8)
[2021-10-23 14:34] LABS: Calcium 9.3 mg/dL (8.5-10.1); Potassium 3.5 mmol/L (3.5-5.1)
[2021-10-23] MEDS: MIDAZOLAM DRIP 50 mg/50mL 50 ML IV SCH (17:16)
[2021-10-23] MEDS: fentaNYL Drip 2500mCg/250mlNS 250 ML IV SCH (17:16)
[2021-10-24] VITALS (82 sets, daily range): BP systolic 94–141; BP diastolic 38–75
[2021-10-24] MEDS: LORazepam 0.5 MG TAB PO PRN (05:51)
[2021-10-24] MEDS: hydrALAZINE HCL 25 MG TAB GT SCH ×3 (06:00→22:00)
[2021-10-24] MEDS: InsuLIN REG 1unit/0.01ml Soln (100units/ml) SC SCH ×4 (06:00→23:40)
[2021-10-24] MEDS: MEROPENEM 1GM IVPB 100 ML IV SCH ×3 (06:05→22:00)
[2021-10-24] MEDS: ACCU-CHEK COMFORT CURVE STRIP VI SCH ×4 (06:06→23:40)
[2021-10-24] MEDS: INSULIN LANTUS (GLARGINE) 1 /0.01ml (100units/ml) SC SCH ×2 (06:39→22:00)
[2021-10-24] MEDS: PROPOFOL 100 ML IV SCH ×2 (07:40→19:15)
[2021-10-24] MEDS: NOREPINEPHRINE 8 MG/250ML KIT 250 ML IV SCH ×2 (07:40→20:30)
[2021-10-24] MEDS: SOD CHL 0.45% 1,000 ML IV SCH ×2 (07:40→17:59)
[2021-10-24] MEDS: ZINC SULFATE 220mg CAP or TAB PO SCH (07:54)
[2021-10-24] MEDS: ASCORBIC ACID 500 MG TAB PO SCH ×2 (07:54→22:00)
[2021-10-24] MEDS: HYDROcodone-ACET 5/325MG TAB PO PRN (09:30)
[2021-10-24] MEDS: DexAMETHasone SOD PHOS 10MG/1ML VIAL INJ IV SCH (10:01)
[2021-10-24] MEDS: ENOXAPARIN SOD 40 MG/0.4 ML SYRINGE SC SCH ×2 (10:02→22:00)
[2021-10-24] MEDS ORDERED: DOCUSATE SOD 100 MG CAP PO ONE ×2 (16:59→17:00)
[2021-10-24] MEDS: MIDAZOLAM DRIP 50 mg/50mL 50 ML IV SCH (17:10)
[2021-10-24] MEDS: fentaNYL Drip 2500mCg/250mlNS 250 ML IV SCH (17:10)
[2021-10-24 20:38] LABS: Hemoglobin 8.6 g/dL (12.2-16.2)
[2021-10-24 20:39] LABS: White Blood Cell 8.2 10^3/uL (4.4-10.8)
[2021-10-24 20:44] LABS: Hematocrit 26.4 % (36.0-46.0); Mean Corpuscular Hgb Conc. 32.5 g/dL (32.0-36.0); Mean Corpuscular Volume 79.8 fL (80.0-100.0); Red Blood Cells 3.31 10^6/uL (4.0-5.20); Red Cell Distribution Width 15.7 % (11.8-14.3)
[2021-10-24 20:48] LABS: Basophils % (manual) 0 (0.0-2.0); Blast Cells 0; Eosinophils % (manual) 0 (0-7); Promyelocytes % 0; Reactive Lymphocytes 0
[2021-10-24 20:52] LABS: BUN/Creatinine Ratio 16.2; Calcium 9.2 mg/dL (8.5-10.1); Potassium 3.4 mmol/L (3.5-5.1)
[2021-10-24 22:19] LABS: Band Neutrophils % (manual) 2; Lymphocytes % (manual) 10 (10.0-50.0); Metamyelocytes % 1; Monocytes % (manual) 4 (0-12); Myelocytes % 1
[2021-10-25] VITALS (14 sets, daily range): BP systolic 96–149; BP diastolic 42–83
[2021-10-25] MEDS: HYDROcodone-ACET 5/325MG TAB PO PRN ×2 (00:43→20:58)
[2021-10-25] MEDS: SOD CHL 0.45% 1,000 ML IV SCH ×2 (03:07→16:36)
[2021-10-25] MEDS: MEROPENEM 1GM IVPB 100 ML IV SCH ×2 (05:26→16:00)
[2021-10-25] MEDS: InsuLIN REG 1unit/0.01ml Soln (100units/ml) SC SCH ×3 (06:00→18:10)
[2021-10-25] MEDS: hydrALAZINE HCL 25 MG TAB GT SCH ×3 (06:19→22:00)
[2021-10-25] MEDS: ACCU-CHEK COMFORT CURVE STRIP VI SCH ×4 (06:19→20:57)
[2021-10-25] MEDS: INSULIN LANTUS (GLARGINE) 1 /0.01ml (100units/ml) SC SCH ×2 (06:32→22:00)
[2021-10-25] MEDS: DexAMETHasone SOD PHOS 10MG/1ML VIAL INJ IV SCH (09:22)
[2021-10-25] MEDS: ASCORBIC ACID 500 MG TAB PO SCH ×2 (09:22→20:57)
[2021-10-25] MEDS: ENOXAPARIN SOD 40 MG/0.4 ML SYRINGE SC SCH ×2 (09:22→20:57)
[2021-10-25] MEDS: ZINC SULFATE 220mg CAP or TAB PO SCH (09:33)
[2021-10-25 19:43] LABS: Hemoglobin 9.1 g/dL (12.2-16.2)
[2021-10-25 19:45] LABS: Hematocrit 28.4 % (36.0-46.0); Mean Corpuscular Hemoglobin 25.9 pg (28.0-32.0); Mean Corpuscular Hgb Conc. 32.1 g/dL (32.0-36.0); Mean Corpuscular Volume 80.6 fL (80.0-100.0); Red Blood Cells 3.52 10^6/uL (4.0-5.20); Red Cell Distribution Width 16.5 % (11.8-14.3)
[2021-10-25 20:01] LABS: Basophils % (manual) 0 (0.0-2.0); Blast Cells 0; Eosinophils % (manual) 0 (0-7); Metamyelocytes % 0; Myelocytes % 0; Promyelocytes % 0; Reactive Lymphocytes 0
[2021-10-25 21:33] LABS: Band Neutrophils % (manual) 2; Lymphocytes % (manual) 7 (10.0-50.0); Monocytes % (manual) 6 (0-12)
[2021-10-25 23:44] LABS: BUN/Creatinine Ratio 17.6; Calcium 8.7 mg/dL (8.5-10.1); Potassium 3.8 mmol/L (3.5-5.1)
[2021-10-26] MEDS: ACCU-CHEK COMFORT CURVE STRIP VI SCH ×3 (04:19→18:04)
[2021-10-26] MEDS: SOD CHL 0.45% 1,000 ML IV SCH ×2 (04:27→06:27)
[2021-10-26] MEDS: MEROPENEM 1GM IVPB 100 ML IV SCH ×3 (04:27→14:29)
[2021-10-26] MEDS: InsuLIN REG 1unit/0.01ml Soln (100units/ml) SC SCH ×4 (04:48→18:13)
[2021-10-26] MEDS: INSULIN LANTUS (GLARGINE) 1 /0.01ml (100units/ml) SC SCH (04:48)
[2021-10-26] MEDS: hydrALAZINE HCL 25 MG TAB GT SCH ×2 (06:00→14:29)
[2021-10-26 07:14] LABS: White Blood Cell 6.5 10^3/uL (4.4-10.8)
[2021-10-26 07:16] LABS: Hematocrit 26.3 % (36.0-46.0); Hemoglobin 8.5 g/dL (12.2-16.2); Mean Corpuscular Hemoglobin 26.1 pg (28.0-32.0); Mean Corpuscular Hgb Conc. 32.1 g/dL (32.0-36.0); Mean Corpuscular Volume 81.1 fL (80.0-100.0); Red Blood Cells 3.25 10^6/uL (4.0-5.20); Red Cell Distribution Width 16.1 % (11.8-14.3)
[2021-10-26 07:17] LABS: Basophils % (manual) 0 (0.0-2.0); Blast Cells 0; Metamyelocytes % 0; Myelocytes % 0; Promyelocytes % 0; Reactive Lymphocytes 0
[2021-10-26 07:33] LABS: Chloride 109 mmol/L (98-107); Potassium 3.8 mmol/L (3.5-5.1); Sodium 142 mmol/L (136-145)
[2021-10-26 07:46] LABS: Anion Gap 7 (5-15); Blood Urea Nitrogen 6 mg/dL (7-18); Calcium 8.4 mg/dL (8.5-10.1); Carbon Dioxide 26 mmol/L (21-32); GFR African American 680 mL/min; GFR Non-African American 562 mL/min; Glucose 105 mg/dL (74-106)
[2021-10-26 07:58] LABS: Band Neutrophils % (manual) 4; Eosinophils % (manual) 3 (0-7); Lymphocytes % (manual) 16 (10.0-50.0); Monocytes % (manual) 5 (0-12)
[2021-10-26 09:00] VITALS: BP 104/57
[2021-10-26] MEDS: ENOXAPARIN SOD 40 MG/0.4 ML SYRINGE SC SCH (10:56)
[2021-10-26] MEDS: ASCORBIC ACID 500 MG TAB PO SCH (10:56)
[2021-10-26] MEDS: ZINC SULFATE 220mg CAP or TAB PO SCH (10:56)
[2021-10-26] MEDS: DexAMETHasone SOD PHOS 10MG/1ML VIAL INJ IV SCH (10:56)
[2021-10-26 13:00] VITALS: BP 163/76
[2021-10-26 16:39] VITALS: BP 129/76
[2021-10-26 17:00] VITALS: BP 136/84
== END 2021-10-26 21:00 | disposition hospice, home (50) | DRG 720 ==
LOC: EDBD 09:20 → EDUNIT# 09:20 → ER 09:20 → TELE 18:19 → DOU IN ICU 10-11 23:50 → TELE-WESTW 10-25 05:34
PROVIDERS: ADMIT Internal Medicine; ATTEND Internal Medicine
PROC: XW033E5 Introduction of Remdesivir Anti-infective into Peripheral Vein, Percutaneous Approach, New Technology Group 5 (ICD-10-PCS; 2021-10-07)
PROC: 5A1955Z Respiratory Ventilation, Greater than 96 Consecutive Hours (ICD-10-PCS; 2021-10-08)
PROC: 0BH17EZ Insertion of Endotracheal Airway into Trachea, Via Natural or Artificial Opening (ICD-10-PCS; 2021-10-08)
PROC: 0B9F8ZZ Drainage of Right Lower Lung Lobe, Via Natural or Artificial Opening Endoscopic (ICD-10-PCS; principal; 2021-10-20 12:15)
DX: A41.9 Sepsis, unspecified organism (principal); J96.01 Acute respiratory failure with hypoxia; J12.82 Pneumonia due to coronavirus disease 2019; N17.0 Acute kidney failure with tubular necrosis; E11.10 Type 2 diabetes mellitus with ketoacidosis without coma; D50.9 Iron deficiency anemia, unspecified; E11.22 Type 2 diabetes mellitus with diabetic chronic kidney disease; U07.1 COVID-19; E87.0 Hyperosmolality and hypernatremia; E87.1 Hypo-osmolality and hyponatremia; E66.01 Morbid (severe) obesity due to excess calories; J98.11 Atelectasis; N18.2 Chronic kidney disease, stage 2 (mild); E21.3 Hyperparathyroidism, unspecified; F41.9 Anxiety disorder, unspecified; I12.9 Hypertensive chronic kidney disease with stage 1 through stage 4 chronic kidney disease, or unspecified chronic kidney disease; Z79.899 Other long term (current) drug therapy; Z83.3 Family history of diabetes mellitus; Z87.442 Personal history of urinary calculi; Z23 Encounter for immunization; Z68.37 Body mass index [BMI] 37.0-37.9, adult
CPT/HCPCS: 31623; 36415; 36600; 71045; 71275; 76775; 80048; 80053; 81001; 82010; 82306; 82728; 82805; 82962; 83036; 83605; 83615; 83735; 83970; 84132; 84443; 84484; 85007; 85025; 85027; 85379; 86141; 87040; 87070; 87081; 87086; 87205; 87426; 92610; 93005; 93970; 94002; 94003; 94640; 96361; 96365; 96367; 96372; 96375; 97110; 97163; 97530; 99291; C1751; G0378; J0171; J0330; J0696; J1100; J1815; J2185; J2250; J2405; J2704; J3489; J3490; J7060

== ENCOUNTER → 2022-03-01 | Outpatient (CLI) | payer MEDICAID ==
[2022-03-01 07:53] LABS: Basophils # (auto) 0 10 ^3/uL (0-0.2); Basophils % (auto) 0.5 % (0.0-2.0); Eosinophils # (auto) 0.2 10 ^3/uL (0-0.8); Hematocrit 35.9 % (36.0-46.0); Hemoglobin 12.4 g/dL (12.2-16.2); Lymphocytes % (auto) 32.3 % (10.0-50.0); Mean Corpuscular Hgb Conc. 34.6 g/dL (32.0-36.0); Mean Corpuscular Volume 83.7 fL (80.0-100.0); Monocytes # (auto) 0.4 10 ^3/uL (0-1.3); Monocytes % (auto) 6.2 % (0.0-12.0); Neutrophils # (auto) 3.6 10 ^3/uL (1.6-8.6); Nucleated Red Blood Cells % 0.1 %; Red Blood Cells 4.28 10^6/uL (4.0-5.20); Red Cell Distribution Width 14.8 % (11.8-14.3); White Blood Cell 6.2 10^3/uL (4.4-10.8)
[2022-03-01 09:45] LABS: Albumin 3.4 g/dL (3.4-5.0); Potassium 3.6 mmol/L (3.5-5.1)
[2022-03-01 09:56] LABS: BUN/Creatinine Ratio 33.3; Bilirubin, Total 0.2 mg/dL (0.2-1.0); Calcium 11.7 mg/dL (8.5-10.1); Total Protein 7.4 g/dL (6.4-8.2)
== END | disposition home or self-care (01) ==
LOC: LAB 07:16
PROVIDERS: ATTEND Internal Medicine
DX: E11.9 Type 2 diabetes mellitus without complications (principal); E66.9 Obesity, unspecified; I10 Essential (primary) hypertension
CPT/HCPCS: 36415; 80053; 80061; 82043; 83036; 83970; 84443; 85025

== ENCOUNTER → 2022-05-19 | Outpatient (CLI) | payer MEDICAID ==
[2022-05-19 11:06] LABS: Albumin 3.4 g/dL (3.4-5.0); Calcium 11.1 mg/dL (8.5-10.1); Potassium 4.6 mmol/L (3.5-5.1)
[2022-05-19 11:14] LABS: Bilirubin, Total 0.4 mg/dL (0.2-1.0)
== END | disposition home or self-care (01) ==
LOC: LAB 10:18
PROVIDERS: ATTEND Internal Medicine
DX: E11.9 Type 2 diabetes mellitus without complications (principal)
CPT/HCPCS: 36415; 80053

== ENCOUNTER → 2022-06-28 | Outpatient (CLI) | payer MEDICAID ==
[2022-06-28 11:06] LABS: Basophils # (auto) 0 10 ^3/uL (0-0.2); Basophils % (auto) 0.6 % (0.0-2.0); Eosinophils # (auto) 0.1 10 ^3/uL (0-0.8); Eosinophils % (auto) 1.4 % (0.0-7.0); Hematocrit 38.2 % (36.0-46.0); Hemoglobin 12.5 g/dL (12.2-16.2); Lymphocytes # (auto) 1.8 10 ^3/uL (0.4-5.4); Lymphocytes % (auto) 26.1 % (10.0-50.0); Mean Corpuscular Hemoglobin 29.1 pg (28.0-32.0); Mean Corpuscular Hgb Conc. 32.7 g/dL (32.0-36.0); Mean Corpuscular Volume 88.9 fL (80.0-100.0); Monocytes # (auto) 0.5 10 ^3/uL (0-1.3); Monocytes % (auto) 6.9 % (0.0-12.0); Neutrophils # (auto) 4.6 10 ^3/uL (1.6-8.6); Nucleated Red Blood Cells % 0.2 %; Red Cell Distribution Width 15.2 % (11.8-14.3); White Blood Cell 7.1 10^3/uL (4.4-10.8)
[2022-06-28 12:28] LABS: Follicle Stimulating Hormone 15.17 IU/L (SEE BELOW); Leuteinizing Hormone 13.6 IU/L
== END | disposition home or self-care (01) ==
LOC: LAB 10:47
PROVIDERS: ATTEND Obstetrics & Gynecology
DX: N92.6 Irregular menstruation, unspecified (principal)
CPT/HCPCS: 36415; 82670; 83001; 83002; 83036; 84403; 84443; 85025

== ENCOUNTER → 2022-07-26 | Outpatient (CLI) | payer MEDICAID | END | disposition home or self-care (01) | LOC: LAB 11:08 | DX: E11.69 Type 2 diabetes mellitus with other specified complication (principal); E22.1 Hyperprolactinemia | CPT/HCPCS: 36415; 82306; 83036; 83970; 84436; 84443 ==

== ENCOUNTER → 2022-08-23 | Outpatient (CLI) | payer MEDICAID ==
[2022-08-23 08:19] LABS: Albumin 3.3 g/dL (3.4-5.0); BUN/Creatinine Ratio 30.6; Calcium 11.2 mg/dL (8.5-10.1); Potassium 3.9 mmol/L (3.5-5.1)
[2022-08-23 08:23] LABS: Bilirubin, Total 0.4 mg/dL (0.2-1.0)
== END | disposition home or self-care (01) ==
LOC: LAB 07:06
PROVIDERS: ATTEND Internal Medicine
DX: I10 Essential (primary) hypertension (principal); E11.9 Type 2 diabetes mellitus without complications; R20.2 Paresthesia of skin; E66.01 Morbid (severe) obesity due to excess calories
CPT/HCPCS: 36415; 80053; 80061; 83036

== ENCOUNTER 2022-11-14 13:18 | Emergency (ER) | payer MEDICAID ==
[~2022-11-14] VITALS: Ht 162.6 cm; Wt 95.0 kg
[2022-11-14] MEDS ORDERED: ASPirin 81 mg TAB PO ONE (13:45)
[2022-11-14] MEDS ORDERED: LORazepam 2MG/ML-1ML VIAL IV ONE (13:45)
[2022-11-14 14:10] LABS: Albumin 3.9 g/dL (3.4-5.0); Calcium 11.5 mg/dL (8.5-10.1); Magnesium 2.2 mg/dL (1.6-2.6); Potassium 4.6 mmol/L (3.5-5.1)
[2022-11-14 14:15] LABS: BUN/Creatinine Ratio 25.4; Bilirubin, Total 0.4 mg/dL (0.2-1.0); Total Protein 7.2 g/dL (6.4-8.2)
[2022-11-14 15:19] LABS: Basophils # (auto) 0 10 ^3/uL (0-0.2); Basophils % (auto) 0.4 % (0.0-2.0); Eosinophils # (auto) 0.1 10 ^3/uL (0-0.8); Eosinophils % (auto) 1.2 % (0.0-7.0); Hemoglobin 12.5 g/dL (12.2-16.2); Lymphocytes # (auto) 1.3 10 ^3/uL (0.4-5.4); Lymphocytes % (auto) 20.5 % (10.0-50.0); Mean Corpuscular Hemoglobin 30.5 pg (28.0-32.0); Mean Corpuscular Hgb Conc. 33.7 g/dL (32.0-36.0); Mean Corpuscular Volume 90.4 fL (80.0-100.0); Monocytes # (auto) 0.4 10 ^3/uL (0-1.3); Monocytes % (auto) 5.6 % (0.0-12.0); Neutrophils # (auto) 4.6 10 ^3/uL (1.6-8.6); Neutrophils % (auto) 72.3 % (37.0-80.0); Nucleated Red Blood Cells % 0.1 %; Red Blood Cells 4.09 10^6/uL (4.0-5.20); Red Cell Distribution Width 14.6 % (11.8-14.3); White Blood Cell 6.4 10^3/uL (4.4-10.8)
[2022-11-14 16:15] VITALS: BP 162/92
== END 2022-11-14 16:21 | disposition home or self-care (01) ==
LOC: ER 13:18
DX: R07.89 Other chest pain (principal); F41.8 Other specified anxiety disorders; M79.662 Pain in left lower leg; I10 Essential (primary) hypertension; E11.9 Type 2 diabetes mellitus without complications; E03.9 Hypothyroidism, unspecified; Z86.2 Personal history of diseases of the blood and blood-forming organs and certain disorders involving the immune mechanism; Z86.73 Personal history of transient ischemic attack (TIA), and cerebral infarction without residual deficits; Z79.899 Other long term (current) drug therapy
CPT/HCPCS: 36415; 71046; 80053; 83735; 84484; 85025; 85379; 93005; 93971; 96374; 99285; J2060

== ENCOUNTER → 2022-12-09 | Outpatient (CLI) | payer MEDICAID ==
[2022-12-09 13:20] LABS: Folate (Folic Acid) 23.79 ng/mL (5.38-24)
== END | disposition home or self-care (01) ==
LOC: LAB 10:46
PROVIDERS: ATTEND Psychiatry & Neurology Neurology
DX: G62.9 Polyneuropathy, unspecified (principal)
CPT/HCPCS: 82607; 82746; 84155; 84165

== ENCOUNTER → 2023-01-02 | Outpatient (CLI) | payer MEDICAID ==
[2023-01-02 08:57] LABS: Urine Bacteria FEW /hpf (None Seen); Urine Blood Negative /uL (Negative); Urine Specific Gravity 1.013 (1.001-1.035); Urine WBC 2 /hpf (0 - 5)
[2023-01-02 10:00] LABS: Albumin 3.2 g/dL (3.4-5.0); Calcium 11.2 mg/dL (8.5-10.1); Potassium 4.3 mmol/L (3.5-5.1)
[2023-01-02 10:05] LABS: BUN/Creatinine Ratio 35.7 (10.0-20.0); Bilirubin, Total 0.3 mg/dL (0.2-1.0)
[2023-01-02 10:23] LABS: Micro Albumin 44.2 mg/L (0-30.0)
== END | disposition home or self-care (01) ==
LOC: LAB 08:13
PROVIDERS: ATTEND Internal Medicine
DX: E11.9 Type 2 diabetes mellitus without complications (principal); R10.9 Unspecified abdominal pain; K76.0 Fatty (change of) liver, not elsewhere classified; G62.1 Alcoholic polyneuropathy
CPT/HCPCS: 36415; 80053; 80061; 81001; 82043; 82570; 83036

== ENCOUNTER → 2023-04-03 | Outpatient (CLI) | payer MEDICAID ==
[~2023-04-03] MED LIST changes: -LISI20TA28 PO; +LISI20TA56 PO
[2023-04-03 08:45] LABS: Cholesterol 120 mg/dL (< 200); HDL Cholesterol 31 mg/dL (40-59); LDL Cholesterol 55 mg/dL (< 100); Triglycerides 296 mg/dL (< 150)
== END | disposition home or self-care (01) ==
LOC: LAB 07:37
PROVIDERS: ATTEND Internal Medicine
DX: E11.9 Type 2 diabetes mellitus without complications (principal); E78.5 Hyperlipidemia, unspecified
CPT/HCPCS: 36415; 80061; 82550; 83036

== ENCOUNTER → 2023-09-05 | Outpatient (CLI) | payer MEDICAID ==
[2023-09-05 14:26] LABS: Urine Blood 2+ /uL (Negative); Urine Clarity Clear (Clear); Urine Color Colorless (Yellow); Urine Protein, UAD Negative (Negative); Urine Specific Gravity 1.035 (1.001-1.035); Urine Urobilinogen Normal (Negative); Urine pH 5.5 (5.0-8.0)
[2023-09-05 14:37] LABS: Alanine Aminotransferase 50 U/L (7-40); Albumin 4.4 g/dL (3.2-4.8); Alkaline Phosphatase 87 U/L (46-116); Anion Gap 5 (5-15); Aspartate Aminotransferase 31 U/L (13-40); BUN/Creatinine Ratio 17.5 (10.0-20.0); Bilirubin, Total 0.5 mg/dL (0.2-1.0); Blood Urea Nitrogen 10 mg/dL (9-23); Calcium 11.2 mg/dL (8.5-10.1); Carbon Dioxide 25 mmol/L (20-30); Chloride 108 mmol/L (98-107); Cholesterol 230 mg/dL (< 200); Glucose 170 mg/dL (74-106); HDL Cholesterol 31 mg/dL (40-59); Potassium 4.1 mmol/L (3.5-5.1); Sodium 138 mmol/L (136-145); Total Protein 7.3 g/dL (5.7-8.2); Triglycerides 404 mg/dL (< 150)
[2023-09-05 15:17] LABS: Creatinine, Urine 55.19 mg/dL (30.0-125.0)
== END | disposition home or self-care (01) ==
LOC: LAB 13:17
PROVIDERS: ATTEND Internal Medicine
DX: E11.9 Type 2 diabetes mellitus without complications (principal); E21.3 Hyperparathyroidism, unspecified
CPT/HCPCS: 36415; 80053; 80061; 81003; 82043; 82306; 82570; 83036; 83970; 84443

== ENCOUNTER → 2023-11-08 | Outpatient (CLI) | payer MEDICAID ==
[2023-11-08 08:44] LABS: Chloride 106 mmol/L (98-107); Potassium 4.4 mmol/L (3.5-5.1); Sodium 138 mmol/L (136-145)
[2023-11-08 08:45] LABS: Anion Gap 5 (5-15); Carbon Dioxide 27 mmol/L (20-30)
[2023-11-08 08:50] LABS: Glucose 193 mg/dL (74-106)
[2023-11-08 08:51] LABS: BUN/Creatinine Ratio 17.7 (10.0-20.0); Blood Urea Nitrogen 11 mg/dL (9-23)
[2023-11-08 09:15] LABS: Urine Bacteria FEW /hpf (None Seen); Urine Blood Negative /uL (Negative); Urine Budding Yeast FEW /hpf (None Seen); Urine Clarity HAZY (Clear); Urine Color Colorless (Yellow); Urine Protein, UAD 1+ (Negative); Urine Specific Gravity 1.029 (1.001-1.035); Urine Urobilinogen Normal (Negative); Urine WBC 269 /hpf (0 - 5); Urine WBC Clumps PRESENT /hpf (None Seen); Urine pH 5.5 (5.0-8.0)
== END | disposition home or self-care (01) ==
LOC: LAB 07:44
PROVIDERS: ATTEND Internal Medicine
DX: N39.0 Urinary tract infection, site not specified (principal); E11.9 Type 2 diabetes mellitus without complications
CPT/HCPCS: 36415; 80048; 81001; 87086; 87088; 87186

== ENCOUNTER → 2024-01-30 | Outpatient (CLI) | payer MEDICAID ==
[2024-01-30 07:07] LABS: Chloride 104 mmol/L (98-107); Potassium 4.9 mmol/L (3.5-5.1); Sodium 136 mmol/L (136-145)
[2024-01-30 07:08] LABS: Anion Gap 7 (5-15); Carbon Dioxide 25 mmol/L (20-30)
[2024-01-30 07:09] LABS: Calcium 11.9 mg/dL (8.7-10.4)
[2024-01-30 07:12] LABS: Creatinine, Urine 41.18 mg/dL (30.0-125.0)
[2024-01-30 07:14] LABS: BUN/Creatinine Ratio 14.9 (10.0-20.0); Blood Urea Nitrogen 10 mg/dL (9-23); Glucose 209 mg/dL (74-106)
== END | disposition home or self-care (01) ==
LOC: LAB 06:23
PROVIDERS: ATTEND Internal Medicine
DX: E11.9 Type 2 diabetes mellitus without complications (principal); E83.52 Hypercalcemia; E04.1 Nontoxic single thyroid nodule
CPT/HCPCS: 36415; 80048; 82043; 82570; 83036

== ENCOUNTER 2024-02-11 12:10 | Inpatient (IN) | payer MEDICAID ==
[~2024-02-11] VITALS: Ht 165.1 cm; Wt 106.4 kg
[2024-02-11] MEDS: AZITHROMYCIN 500MG/ 250ML 250 ML IV ONE (12:32)
[2024-02-11] MEDS: SODIUM CHLORIDE 0.9% 1,000 ML IV ONE ×3 (12:32→18:28)
[2024-02-11] MEDS: cefTRIAXone 1GM/50ML D5W 50 ML IV ONE (12:32)
[2024-02-11] MEDS: ONDANSETRON HCL 4 MG/2 ML VIAL IV ONE (13:01)
[2024-02-11 13:08] LABS: Basophils # (auto) 0 10 ^3/uL (0-0.2); Basophils % (auto) 0.1 % (0.0-2.0); Eosinophils # (auto) 0 10 ^3/uL (0-0.8); Eosinophils % (auto) 0.3 % (0.0-7.0); Hematocrit 46.3 % (36.0-46.0); Hemoglobin 14.8 g/dL (12.2-16.2); Lymphocytes # (auto) 0.3 10 ^3/uL (0.4-5.4); Lymphocytes % (auto) 4.4 % (10.0-50.0); Mean Corpuscular Hemoglobin 29.7 pg (28.0-32.0); Mean Corpuscular Hgb Conc. 32.1 g/dL (32.0-36.0); Mean Corpuscular Volume 92.6 fL (80.0-100.0); Monocytes # (auto) 0.1 10 ^3/uL (0-1.3); Monocytes % (auto) 0.9 % (0.0-12.0); Neutrophils % (auto) 94.3 % (37.0-80.0); Nucleated Red Blood Cells % 0.1 %; Red Cell Distribution Width 15.2 % (11.8-14.3); White Blood Cell 6.4 10^3/uL (4.4-10.8)
[2024-02-11 13:15] LABS: Chloride 106 mmol/L (98-107); Potassium 4.4 mmol/L (3.5-5.1); Sodium 137 mmol/L (136-145)
[2024-02-11 13:16] LABS: Anion Gap 11 (5-15); Carbon Dioxide 20 mmol/L (20-30)
[2024-02-11 13:17] LABS: Calcium 11.4 mg/dL (8.5-10.1)
[2024-02-11 13:21] LABS: BUN/Creatinine Ratio 14.8 (10.0-20.0); Blood Urea Nitrogen 13 mg/dL (9-23); Glucose 278 mg/dL (74-106)
[2024-02-11 13:30] LABS: Lactic Acid w/Reflex 3.4 mmol/L (0.4-2.0)
[2024-02-11] MEDS: ACETAMINOPHEN 325 MG TAB PO PRN (15:46)
[2024-02-11] MEDS ORDERED: DEXTROSE (50%) 50ML SYRG IV PRN (17:15)
[2024-02-11] MEDS ORDERED: MORPHINE SULFATE INJ 2 MG/ml SYRG IV PRN (17:15)
[2024-02-11] MEDS ORDERED: NITROGLYCERIN 0.4 MG SL TAB SL PRN (17:15)
[2024-02-11] MEDS ORDERED: ONDANSETRON HCL 4 MG/2 ML VIAL IV PRN (17:15)
[2024-02-11 17:51] VITALS: PULSE 105; RESP 20; O2SAT 96
[2024-02-11] MEDS: SODIUM CHLORIDE 0.9% 1,000 ML IV SCH (18:00)
[2024-02-11 21:38] LABS: Urine Bacteria FEW /hpf (None Seen); Urine Blood Negative /uL (Negative); Urine Clarity Clear (Clear); Urine Color Colorless (Yellow); Urine Protein, UAD Negative (Negative); Urine Specific Gravity 1.029 (1.001-1.035); Urine Urobilinogen Normal (Negative); Urine WBC 38 /hpf (0 - 5)
[2024-02-11] MEDS: ACCU-CHEK COMFORT CURVE STRIP VI SCH (22:30)
[2024-02-11] MEDS: InsuLIN REG 1unit/0.01ml Soln (100units/ml) SC SCH (22:37)
[2024-02-12] MEDS: MORPHINE SULFATE INJ 2 MG/ml SYRG IV PRN (03:51)
[2024-02-12] MEDS: ACETAMINOPHEN 325 MG TAB PO PRN (04:00)
[2024-02-12 06:49] LABS: Basophils # (auto) 0 10 ^3/uL (0-0.2); Basophils % (auto) 0.1 % (0.0-2.0); Eosinophils # (auto) 0 10 ^3/uL (0-0.8); Eosinophils % (auto) 0.3 % (0.0-7.0); Hematocrit 49.3 % (36.0-46.0); Lymphocytes # (auto) 0.6 10 ^3/uL (0.4-5.4); Lymphocytes % (auto) 5.3 % (10.0-50.0); Mean Corpuscular Hemoglobin 30.2 pg (28.0-32.0); Mean Corpuscular Hgb Conc. 32.5 g/dL (32.0-36.0); Mean Corpuscular Volume 92.9 fL (80.0-100.0); Monocytes # (auto) 0.3 10 ^3/uL (0-1.3); Neutrophils # (auto) 9.6 10 ^3/uL (1.6-8.6); Neutrophils % (auto) 91.3 % (37.0-80.0); Nucleated Red Blood Cells % 0.2 %; Red Blood Cells 5.31 10^6/uL (4.0-5.20); Red Cell Distribution Width 15.5 % (11.8-14.3); White Blood Cell 10.5 10^3/uL (4.4-10.8)
[2024-02-12 07:35] VITALS: PULSE 114; RESP 22; O2SAT 95
[2024-02-12 07:42] LABS: Alanine Aminotransferase 43 U/L (7-40); Alkaline Phosphatase 125 U/L (46-116); BUN/Creatinine Ratio 10.8 (10.0-20.0); Blood Urea Nitrogen 8 mg/dL (9-23); Calcium 11.3 mg/dL (8.5-10.1); Carbon Dioxide 18 mmol/L (20-30); Glucose 218 mg/dL (74-106)
[2024-02-12 07:43] LABS: Aspartate Aminotransferase 34 U/L (13-40)
[2024-02-12 07:44] LABS: Bilirubin, Total 0.5 mg/dL (0.2-1.0); Total Protein 7.2 g/dL (5.7-8.2)
[2024-02-12 07:57] LABS: Anion Gap 7 (5-15); Chloride 110 mmol/L (98-107); Potassium 3.7 mmol/L (3.5-5.1); Sodium 135 mmol/L (136-145)
[2024-02-12] MEDS: cefTRIAXone 1GM/50ML D5W 50 ML IV SCH (09:30)
[2024-02-12] MEDS: LISINOPRIL 20 MG TAB PO SCH (10:00)
[2024-02-12] MEDS: PANTOPRAZOLE 40 MG TAB PO SCH (10:04)
[2024-02-12] MEDS ORDERED: METF-370 PO (15:13)
[2024-02-12] MEDS ORDERED: SEMA1INJ2 SC (15:15)
[2024-02-12] MEDS ORDERED: FINE20TA PO (15:15)
[2024-02-12] MEDS ORDERED: TIRZ7.5I SC (15:15)
[2024-02-12] MEDS ORDERED: LIDO1.8P TOP (15:15)
[2024-02-12] MEDS ORDERED: ERGO1CAP12 PO (15:16)
[2024-02-12] MEDS ORDERED: DAPA1TAB4 PO (15:16)
[2024-02-12] MEDS ORDERED: MAGN241.6 PO (15:16)
[2024-02-12] MEDS ORDERED: LIDO1PAD55 TOP (15:16)
[2024-02-12] MEDS ORDERED: FENO48TA13 PO (15:16)
[2024-02-12] MEDS ORDERED: ASPI-325 PO (15:16)
[2024-02-12] MEDS ORDERED: MECL-126 PO (15:17)
[2024-02-12 15:21] VITALS: BP 105/59; PULSE 92; RESP 18; TEMP 98.2; O2SAT 98
[2024-02-12] MEDS: HYDROcodone-ACET 5/325MG TAB PO PRN (15:31)
[2024-02-12 20:00] VITALS: BP 103/45; PULSE 60; PULSE 87; PULSE 93; RESP 15; TEMP 98.3; O2SAT 90
[2024-02-12 21:00] VITALS: BP 103/45; PULSE 68; RESP 15; TEMP 98.3; O2SAT 90
[2024-02-13] VITALS (8 sets, daily range): BP systolic 118–149; BP diastolic 53–82; PULSE 0–101; RESP 14–20; TEMP 97–99.4; O2SAT 90–97
[2024-02-13 05:50] LABS: Chloride 109 mmol/L (98-107); Sodium 138 mmol/L (136-145)
[2024-02-13 05:51] LABS: Anion Gap 7 (5-15); Calcium 10.6 mg/dL (8.7-10.4); Carbon Dioxide 22 mmol/L (20-30)
[2024-02-13 05:56] LABS: Glucose 153 mg/dL (74-106)
[2024-02-13 06:35] LABS: Blood Urea Nitrogen 11 mg/dL (9-23); Potassium 4.7 mmol/L (3.5-5.1)
[2024-02-14 01:00] VITALS: BP 105/57; PULSE 93; RESP 17; TEMP 98.4; O2SAT 95
[2024-02-14] MEDS: DOCUSATE SOD 100 MG CAP PO PRN (01:30)
[2024-02-14 05:00] VITALS: BP 145/77; PULSE 93; RESP 17; TEMP 98.2; O2SAT 97
[2024-02-14 08:00] VITALS: PULSE 87
[2024-02-14 08:15] VITALS: BP 143/53; PULSE 90; PULSE 95; RESP 16; RESP 20; TEMP 97; O2SAT 0
[2024-02-14 08:33] VITALS: BP 130/78; PULSE 85; RESP 19; TEMP 97.3; O2SAT 97
[2024-02-14] MEDS ORDERED: CIPR-273 PO (11:16)
[2024-02-14 12:46] VITALS: BP 149/85; PULSE 93; RESP 20; TEMP 97.7; O2SAT 95
== END 2024-02-14 16:30 | disposition home health service (06) | DRG 720 ==
LOC: ER 12:10 → EDBD 12:10 → TELE 17:11 → TELE-E-ADS 02-12 14:46 → TELE-WESTW 02-12 17:00
PROVIDERS: ADMIT Nurse Practitioner Family; ATTEND Internal Medicine Geriatric Medicine
DX: A41.59 Other Gram-negative sepsis (principal); E11.9 Type 2 diabetes mellitus without complications; E66.01 Morbid (severe) obesity due to excess calories; N39.0 Urinary tract infection, site not specified; I10 Essential (primary) hypertension; Z86.73 Personal history of transient ischemic attack (TIA), and cerebral infarction without residual deficits; Z98.51 Tubal ligation status; Z87.442 Personal history of urinary calculi; Z68.39 Body mass index [BMI] 39.0-39.9, adult; Z79.4 Long term (current) use of insulin; Z79.899 Other long term (current) drug therapy
CPT/HCPCS: 36415; 80048; 80053; 81001; 82962; 83605; 84484; 85025; 87040; 87086; 93005; 96365; 96368; G0378; J1815; J2405

== ENCOUNTER → 2024-10-17 | Outpatient (CLI) | payer MEDICARE, MEDICAID ==
[~2024-10-17] MED LIST changes: -ALOG1TAB2 PO; +ASPI-325 PO; +CIPR-273 PO; +DAPA1TAB4 PO; +ERGO1CAP12 PO; +FENO48TA13 PO; +FINE20TA PO; +LIDO1.8P TOP; +LIDO1PAD55 TOP; +MAGN241.6 PO; +MECL-126 PO; +METF-370 PO; -METF-490 PO; +SEMA1INJ2 SC; +TIRZ7.5I SC
[2024-10-17 09:43] LABS: HDL Cholesterol 41 mg/dL (40-59)
[2024-10-17 09:44] LABS: Cholesterol 276 mg/dL (< 200); LDL Cholesterol 202 mg/dL (< 100); Triglycerides 341 mg/dL (< 150)
[2024-10-18 08:45] LABS: Creatinine, Urine 11.88 mg/dL (30.0-125.0)
[2024-10-18 08:48] LABS: Micro Albumin < 3.0 mg/L (<30.0); Microalb/Creat Ratio, Urine < 3.0
== END | disposition home or self-care (01) ==
LOC: LAB 08:40
PROVIDERS: ATTEND Internal Medicine
DX: Z12.11 Encounter for screening for malignant neoplasm of colon (principal); E11.9 Type 2 diabetes mellitus without complications; E04.1 Nontoxic single thyroid nodule; E55.9 Vitamin D deficiency, unspecified
CPT/HCPCS: 36415; 80061; 82043; 82270; 82306; 82570; 83036

== ENCOUNTER → 2024-11-27 | Outpatient (CLI) | payer MEDICARE, MEDICAID ==
[2024-11-27 08:34] LABS: Albumin 4.5 g/dL (3.2-4.8); Alkaline Phosphatase 93 U/L (46-116); Aspartate Aminotransferase 26 U/L (13-40)
[2024-11-27 08:35] LABS: Bilirubin, Total 0.3 mg/dL (0.2-1.0); Total Protein 7.1 g/dL (5.7-8.2)
[2024-11-27 08:39] LABS: Alanine Aminotransferase 48 U/L (7-40); Bilirubin, Direct < 0.1 mg/dL (<0.3)
== END | disposition home or self-care (01) ==
LOC: LAB 07:27
PROVIDERS: ATTEND Internal Medicine
DX: E11.9 Type 2 diabetes mellitus without complications (principal); E78.5 Hyperlipidemia, unspecified
CPT/HCPCS: 36415; 80076

== ENCOUNTER 2025-04-20 11:56 | Inpatient (IN) | payer MEDICARE, MEDICAID ==
[~2025-04-20] VITALS: Ht 165.1 cm; Wt 99.8 kg
--- NOTE | 2025-04-20 13:09 | ED.PDOC ---
GI ASSESSMENT HPI Comments 50 y.o female with PMHx of HTN, HLD, parathyroid disease, TIA, anxiety and vertigo, presents to the ED for a chief complaint of epigastric pain radiating to her back associated with nausea, constipation and a fever. Patient describes pain as sharp, constant, and rating a 8/10 on the pain scale. Patient reports similar symptoms in the past, was diagnosed with diverticulitis but never admitted or given treatment. Patient reports last BM was 2 days ago. Patient denies any vomiting, chills, bloody stool, hematuria. Chief Complaint: Abdominal Pain Time Seen by MD: 13:00 Primary Care Provider: DR PIMENTEL Reviewed Notes: Nurses Notes, Medications, Allergies Allergies: Coded Allergies: NO KNOWN ALLERGIES (Unverified , 08/11/16) Home Meds Active Scripts Ciprofloxacin Hcl (Cipro) 250 Mg Tab, 250 MG PO BID for 5 Days, #10 TAB Prov:OG NICHOLS MD 02/14/24 Reported Medications Meclizine HCl (Meclizine Hydrochloride) 25 Mg Tab, 1 TAB PO BIDPRN PRN for VERTIGO 02/12/24 Lidocaine (Lidocaine) 5 % Pad, 1 PATCH TOP DAILY 02/12/24 Ergocalciferol (Vitamin D) 50,000 Unit Cap, 1 CAP PO QWEEKLY 02/12/24 Dapagliflozin Propanediol (Farxiga) 10 Mg Tab, 1 TAB PO DAILY 02/12/24 Aspirin (Aspirin Low Dose) 81 Mg Tab, 1 TAB PO DAILY 02/12/24 Fenofibrate (FENOFIBRATE) 48 Mg Tab, 1 TAB PO DAILY 02/12/24 Magnesium Oxide (mg Supplement (Magnesium-Oxide) 400 Mg Tab, 1 TAB PO DAILY 02/12/24 Semaglutide (Ozempic) 8 Mg/3 Ml Inj, 2 MG SC QWEEKLY 02/12/24 Finerenone (Kerendia) 20 Mg Tab, PO 02/12/24 Lidocaine (Ztlido) 1.8 % Pad, TOP 02/12/24 Tirzepatide (Mounjaro) 7.5 Mg/0.5 Ml Inj, SC 02/12/24 Metformin Hydrochloride (Metformin Hcl) 500 Mg Tab, 1 TAB PO 02/12/24 Ferrous Sulfate (Iron (Ferrous Sulfate)) 50 Mg Tab, 325 MG PO BID, TAB 05/26/19 Lisinopril (Lisinopril) 20 Mg Tab, 20 MG PO DAILY, TAB 05/26/19 Glipizide (Glipizide) 10 Mg Tab, 1 TAB PO BID, #180 TAB 3 Refills 05/26/19 Information Source: Patient Mode of Arrival: Wheelchair Timing: Days Duration: Since onset Quality: Sharp Vomitus: None Stool: Normal Severity: Moderate Recent: None Recent Hx of: None Pain Location: Epigastric Modifying Factors: Nothing Associated sign and symptoms: Nausea, Abdominal Pain Past Medical History PAST MEDICAL HISTORY: Anemia, Anxiety, DM, HTN, Kidney Stones, Thyroid, TIA Surgical History: BTL, [employer]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 Family History Family History: Reviewed,noncontributory to illness, No family hx of Cancer, Family hx of DM Social History Smoker: Non-Smoker Alcohol: Denies ETOH Use Drugs: Denies Drug Use Lives In: Home Constitutional: denies: chills, diaphoresis, fatigue, fever, malaise, sweats, weakness, others EENTM: denies: blurred vision, double vision, ear bleeding, ear discharge, ear drainage, ear pain, ear ringing, eye pain, eye redness, hearing loss, mouth pain, mouth swelling, nasal discharge, nose bleeding, nose congestion, nose pain, photophobia, tearing, throat pain, throat swelling, voice changes, others Respiratory: denies: cough, hemoptysis, orthopnea, SOB at rest, shortness of breath, SOB with excertion, stridor, wheezing, others Cardiovascular: denies: chest pain, dizzy spells, diaphoresis, Dyspnea on e xertion, edema, irregular heart beat, left arm pain, lightheadedness, palpitations, PND, syncope, others Gastrointestinal: reports: abdominal pain, nausea; denies: abdomen distended, blood streaked bowels, constipated, diarrhea, dysphagia, difficulty swallowing, hematemesis, melena, poor appetite, poor fluid intake, rectal bleeding, rectal pain, vomiting, others Genitourinary: denies: abnormal vagina bleeding, burning, dyspareunia, dysuria, flank pain, frequency, hematuria, incontinence, pain, , vagina discharge, urgency, others Neurological: denies: dizziness, fainting, headache, left sided numbness, left sided weakness, numbness, paresthesia, pre-existing deficit, right sided numbness, right sided weakness, seizure, speech problems, tingling, tremors, weakness, others Musculoskeletal: reports: back pain; denies: gout, joint pain, joint swelling, muscle pain, muscle stiffness, neck pain, others Integumetry: denies: bruises, change in color, change in hair/nails, dryness, laceration, lesions, lumps, rash, wounds, others Allergic/Immunocompromised: denies: Difficulty Healing, Frequent Infections, Hives, Itching, others Hematologic/Lymphatic: denies: anemia, blood clots, easy bleeding, easy bruising, swollen glands, others Endocrine: denies: excessive hunger, excessive sweating, excessive thirst, excessive urination, flushing, intolerance to cold, intolerance to heat, unexplained weight gain, unexplained weight loss, others Psychiatric: denies: anxiety, bipolar disorder, depression, hopeless, panic d isorder, schizophrenia, sleepless, suicidal, others All Other Systems: Reviewed and Negative Physical Exam General Appearance: Moderate Distress HEENT: Normal ENT Inspection, Pharynx Normal, TMs Normal Neck: Full Range of Motion, Non-Tender, Normal, Normal Inspection Respiratory: Chest Non-Tender, Lungs Clear, No Accessory Muscle Use, No Respiratory Distress, Normal Breath Sounds Cardiovascular: No Edema, No JVD, No Murmur, No Gallop, Normal Peripheral Pulses, Regular Rate/Rhythm Breast Exam: Deferred Gastrointestinal: Epigastric, No Organomegaly, No Pulsatile Mass, Normal Bowel Sounds, Soft, Tenderness Genitalia: Deferred Pelvic: Deferred Rectal: Deferred Extremities: No calf tenderness, Normal capillary refill, Normal inspection, Normal range of motion, Non-tender, No pedal edema Musculoskeletal : Apperance: Normal Neurologic: Alert, display artist II-XII nml as Tested, No Motor Deficits, Normal Affect, Normal Mood, No Sensory Deficits Cerebellar Function: Normal Reflexes: Normal Skin: Dry, Normal Color, Warm Lymphatic: No Adenopathy Was a procedure done? Was a procedure done?: No GI differential Dx Differential Diagnosis: Cholangitis, Cholecystitis, Constipation, Diverticular disease, Gastroenteritis, Inflammatory BD X-Ray, Labs, Meds, VS Vital Signs Date Time Temp Pulse Resp B/P (MAP) Pulse Ox O2 Delivery O2 Flow Rate FiO2 04/20/25 12:30 98.7 118 18 112/52 (72) 95 98.7 Lab Test 04/20/25 14:29 04/20/25 12:55 Range/Units White Blood Count 8.5 4.4-10.8 10^3/uL Red Blood Count 5.51 H 4.0-5.20 10^6/uL Hemoglobin 16.4 H 12.2-16.2 g/dL Hematocrit 49.5 H 36.0-46.0 % Mean Corpuscular Volume 89.9 80.0-100.0 fL Mean Corpuscular Hemoglobin 29.9 28.0-32.0 pg Mean Corpuscular Hemoglobin Concent 33.2 32.0-36.0 g/dL Red Cell Distribution Width 15.7 H 11.8-14.3 % Platelet Count 275 140-450 10^3/uL Mean Platelet Volume 7.1 6.9-10.8 fL Neutrophils (%) (Auto) 83.3 H 37.0-80.0 % Lymphocytes (%) (Auto) 8.1 L 10.0-50.0 % Monocytes (%) (Auto) 7.7 0.0-12.0 % Eosinophils (%) (Auto) 0.6 0.0-7.0 % Basophils (%) (Auto) 0.3 0.0-2.0 % Neutrophils # (Auto) 7.1 1.6-8.6 10 ^3/uL Lymphocytes # (Auto) 0.7 0.4-5.4 10 ^3/uL Monocytes # (Auto) 0.7 0-1.3 10 ^3/uL Eosinophils # (Auto) 0 0-0.8 10 ^3/uL Basophils # (Auto) 0 0-0.2 10 ^3/uL Nucleated Red Blood Cells 0.2 % Sodium Level 137 136-145 mmol/L Potassium Level 4.4 3.5-5.1 mmol/L Chloride Level 106 98-107 mmol/L Carbon Dioxide Level 20 20-31 mmol/L Anion Gap 11 5-15 Blood Urea Nitrogen 15 9-23 mg/dL Creatinine 0.99 0.550-1.02 mg/dL Glomerular Filtration Rate Calc 69 >90 mL/min BUN/Creatinine Ratio 15.2 10.0-20.0 Serum Glucose 158 H 74-106 mg/dL Calcium Level 13.0 *H 8.7-10.4 mg/dL Total Bilirubin 0.3 0.2-1.0 mg/dL Aspartate Amino Transferase (AST) 31 13-40 U/L Alanine Aminotransferase (ALT) 30 7-40 U/L Alkaline Phosphatase 110 46-116 U/L Total Protein 7.9 5.7-8.2 g/dL Albumin 4.8 3.2-4.8 g/dL Lipase 34 12-53 U/L Urine Color Yellow Yellow Urine Clarity Clear Clear Urine pH 5.5 5.0-9.0 Urine Specific [place] 1.026 1.001-1.035 Urine Protein Negative Negative Urine Ketones 1+ H Negative Urine Blood Trace H Negative /uL Urine Nitrite 2+ H Negative Urine Bilirubin Negative Negative Urine Urobilinogen Normal Negative mg/dL Urine Leukocyte Esterase 2+ Negative /uL Urine RBC 16 0 - 4 /hpf Urine Microscopic WBC 73 H 0-5 /HPF Urine Squamous Epithelial Cells Few <5 /hpf Urine Bacteria Few H None Seen /hpf Urine Glucose 4+ H Normal mg/dL Ultrasound of the gallbladder is negative for gallstones The urine test is positive for significant UTI The CBC is within normal limits The rest of the chemistry panel shows a calcium level is 13. At this time, the patient is being admitted to the hospitalist The patient understands and agrees with the management. The patient is being started on Levaquin IV piggyback Images Reviewed?: Images reviewed and evaluated by me Time of 1ST Reevaluation: 13:08 Reevaluation 1ST: Unchanged Patient Education/Counseling: Diagnosis, Treatment, Prognosis Family Education/Counseling: Diagnosis, Treatment, Prognosis SEPSIS Sepsis Screen Physician Orders Gallbladder (04/20/25 13:51) Vital Signs Date Time Temp Pulse Resp B/P (MAP) Pulse Ox O2 Delivery O2 Flow Rate FiO2 04/20/25 12:30 98.7 118 18 112/52 (72) 95 98.7 Laboratory Tests Test 04/20/25 14:29 White Blood Count 8.5 10^3/uL (4.4-10.8) Departure 1 Departure Time of Disposition: 16:02 Impression: Primary Impression: Intractable abdominal pain Additional Impressions: UTI (urinary tract infection) Qualified Codes: N30.01 - Acute cystitis with hematuria Hypercalcemia Disposition: ADMITTED INPATIENT Admit to: Med Surg Condition: Fair Critical Care Note Critical Care Time?: No Stability Stability form required: Yes Unstable for transfer: ED Physician Assesment (Clinical assesment) I personally scribed for MIA CHISHOLM MD ([email or web address]) on 04/20/25 at 13:08. Electronically submitted by Abigail Kwong ([facility]). MIA CHISHOLM MD Apr 20, 2025 13:08
[2025-04-20 14:49] LABS: Hematocrit 49.5 % (36.0-46.0); Hemoglobin 16.4 g/dL (12.2-16.2); Mean Corpuscular Hemoglobin 29.9 pg (28.0-32.0); Mean Corpuscular Volume 89.9 fL (80.0-100.0); Nucleated Red Blood Cells % 0.2 %
[2025-04-20 15:02] LABS: Alanine Aminotransferase 30 U/L (7-40); Alkaline Phosphatase 110 U/L (46-116); Anion Gap 11 (5-15); BUN/Creatinine Ratio 15.2 (10.0-20.0); Bilirubin, Total 0.3 mg/dL (0.2-1.0); Blood Urea Nitrogen 15 mg/dL (9-23); Chloride 106 mmol/L (98-107); Lipase 34 U/L (12-53); Potassium 4.4 mmol/L (3.5-5.1); Sodium 137 mmol/L (136-145); Total Protein 7.9 g/dL (5.7-8.2)
[2025-04-20 15:03] LABS: Albumin 4.8 g/dL (3.2-4.8); Carbon Dioxide 20 mmol/L (20-31); Glucose 158 mg/dL (74-106)
[2025-04-20 15:04] LABS: Calcium 13.0 mg/dL (8.7-10.4)
[2025-04-20 15:31] LABS: Urine Protein, UAD Negative (Negative)
--- NOTE | 2025-04-20 15:44 | DVH ---
EXAM: US GALLBLADDER INDICATION: pain TECHNIQUE: Multiple real-time sonographic images were obtained of the right upper quadrant. COMPARISON: None FINDINGS: The liver demonstrates increased echogenicity without focal mass lesions. Liver measures 21 .1 cm. There is hepatopedal color doppler flow in the main portal vein. There is no intrahepatic bili [place] ductal dilatation. The gallbladder is without evidence of stone or sludge. The gallbladder wall measures 0.2 cm. The common bile duct is not visualized. There is a negative sonographic Webb's sign. The right kidney measures 12.1 cm. The right kidney is normal in contour, size, and shape. The echo genicity is normal. There are intrarenal calculi measuring up to 2.6 cm. There is no hydronephrosis. The left kidney measures 12.5 cm. The left kidney is normal in contour, size and shape. The echogen icity is normal. The pancreas is not well visualized due to overlying bowel gas. Visualized portions of the aorta and inferior vena cava are unremarkable. No evidence of ascites. IMPRESSION: 1. No gallstones or acute cholecystitis. 2. Common bile duct not visualized. 3. Hepatomegaly and hepatic steatosis. 4. Nonobstructive right intrarenal calculi.
[2025-04-20] MEDS: PANTOPRAZOLE 40 MG/10 ML VIAL INJ IV ONE (18:47)
[2025-04-20] MEDS: MORPHINE SULFATE 4 MG/ML SYR/VIAL IV ONE (18:49)
[2025-04-20] MEDS: ONDANSETRON HCL 4 MG/2 ML VIAL IV ONE (18:50)
[2025-04-20] MEDS: ACETAMINOPHEN 325 MG TAB PO ONE (22:45)
--- NOTE | 2025-04-20 23:41 | DVHHP2 ---
History of Present Illness History of Present Illness This is a 50-year-old female with past medical history of Anemia, Anxiety, DM2, HTN, Kidney Stones, TIA, Parathyroid tumor, HLD came to ED with the complain of lower abdominal pain for 2 days which is worsen today, 10/10 intensity, localized, sharp pain, tried lidocaine patch and cold water which helps a little, aggravated on movement or deep palpation associated with nausea, fever, loss of appetite, headache. Patient use walker during ambulation due to diabetic neuropathy. Patient daughter Komal with patient during encounter stat ed patient visited recently with her primary care last week and treated UTI with po antibiotic. Never seen by GI spl, never done endoscopy or colonoscopy. Denies any chest pain, SOB, headache, cough, vomiting, nausea, diarrhea. PAST MEDICAL HISTORY: Anemia, Anxiety, DM, HTN, Kidney Stones, Thyroid, TIA Surgical History: Bilateral tubal ligation, x5, fibroadenoma removal 2002 Social History Smoker: Non-Smoker Alcohol: Denies ETOH Use Drugs: Denies Drug Use Lives In: Home Allergy: No known allergy PCP: Dr. San Review of Systems Constitutional: Yes: Fever, Chills, Weakness, Malaise, Other (Obese) Gastrointestinal: Nausea, Vomiting, Abdominal Pain, Other (Loss of appetite) Neurological: Other (Headache) Allergies: Coded Allergies: NO KNOWN ALLERGIES (Unverified , 08/11/16) Exam Vital Signs Vital Signs Date Time Temp Pulse Resp B/P (MAP) Pulse Ox O2 Delivery O2 Flow Rate FiO2 04/20/25 22:45 102.8 04/20/25 21:53 120 20 150/73 (98) 93 General Appearance: Alert, Oriented X3, Cooperative, mild distress, Other (Obese) HEENT: Atraumatic, PERRLA, EOMI Respiratory: Clear to auscultation, Normal air movement Cardiovascular: Regular rate, Normal S1, Normal S2 Abdominal: Normal bowel sounds, Soft, Other (Tender deep palpation on lower abdomen) Extremities: No clubbing, No cyanosis, No edema Skin: No rashes, No breakdown Neuro: Normal speech, Other ( gait instability use walker for ambulation) Labs/Xrays Labs Test 04/20/25 14:29 04/20/25 12:55 Range/Units White Blood Count 8.5 4.4-10.8 10^3/uL Red Blood Count 5.51 H 4.0-5.20 10^6/uL Hemoglobin 16.4 H 12.2-16.2 g/dL Hematocrit 49.5 H 36.0-46.0 % Mean Corpuscular Volume 89.9 80.0-100.0 fL Mean Corpuscular Hemoglobin 29.9 28.0-32.0 pg Mean Corpuscular Hemoglobin Concent 33.2 32.0-36.0 g/dL Red Cell Distribution Width 15.7 H 11.8-14.3 % Platelet Count 275 140-450 10^3/uL Mean Platelet Volume 7.1 6.9-10.8 fL Neutrophils (%) (Auto) 83.3 H 37.0-80.0 % Lymphocytes (%) (Auto) 8.1 L 10.0-50.0 % Monocytes (%) (Auto) 7.7 0.0-12.0 % Eosinophils (%) (Auto) 0.6 0.0-7.0 % Basophils (%) (Auto) 0.3 0.0-2.0 % Neutrophils # (Auto) 7.1 1.6-8.6 10 ^3/uL Lymphocytes # (Auto) 0.7 0.4-5.4 10 ^3/uL Monocytes # (Auto) 0.7 0-1.3 10 ^3/uL Eosinophils # (Auto) 0 0-0.8 10 ^3/uL Basophils # (Auto) 0 0-0.2 10 ^3/uL Nucleated Red Blood Cells 0.2 % Sodium Level 137 136-145 mmol/L Potassium Level 4.4 3.5-5.1 mmol/L Chloride Level 106 98-107 mmol/L Carbon Dioxide Level 20 20-31 mmol/L Anion Gap 11 5-15 Blood Urea Nitrogen 15 9-23 mg/dL Creatinine 0.99 0.550-1.02 mg/dL Glomerular Filtration Rate Calc 69 >90 mL/min BUN/Creatinine Ratio 15.2 10.0-20.0 Serum Glucose 158 H 74-106 mg/dL Calcium Level 13.0 *H 8.7-10.4 mg/dL Total Bilirubin 0.3 0.2-1.0 mg/dL Aspartate Amino Transferase (AST) 31 13-40 U/L Alanine Aminotransferase (ALT) 30 7-40 U/L Alkaline Phosphatase 110 46-116 U/L Total Protein 7.9 5.7-8.2 g/dL Albumin 4.8 3.2-4.8 g/dL Lipase 34 12-53 U/L Urine Color Yellow Yellow Urine Clarity Clear Clear Urine pH 5.5 5.0-9.0 Urine Specific [place] 1.026 1.001-1.035 Urine Protein Negative Negative Urine Ketones 1+ H Negative Urine Blood Trace H Negative /uL Urine Nitrite 2+ H Negative Urine Bilirubin Negative Negative Urine Urobilinogen Normal Negative mg/dL Urine Leukocyte Esterase 2+ Negative /uL Urine RBC 16 0 - 4 /hpf Urine Microscopic WBC 73 H 0-5 /HPF Urine Squamous Epithelial Cells Few <5 /hpf Urine Bacteria Few H None Seen /hpf Urine Glucose 4+ H Normal mg/dL SEPSIS Sepsis Screen Date sepsis recognized/suspect: Apr 20, 2025 Time Sepsis recognized/suspect: 1229 Recent Procedure: No On Antibiotic Therapy: No Respiratory Rate >20: No Heart Rate >90: Yes Temp<36 C (96.8 F) or >38.3 C: No SBP <90 or MAP <65 mmHG: No New Acute Mental Status Change: No Is the patient on CPAP, BIPAP,: No Physician Orders Heplock Iv (04/20/25 17:59) Damage Assessor (04/20/25 17:59) Blood Pressure (04/20/25 17:59) Pulse Oximetry (04/20/25 17:59) Admit (04/20/25 23:34) Nitroglycerin Sublingual (Ntrostat Subli (04/20/25 23:45) Morphine Sulfate Injection (04/20/25 23:45) Clear Liq Diet (04/21/25 Breakfast) NS (04/20/25 23:45) Acetaminophen Tablet (Tylenol Tablet) (04/20/25 23:45) Ct Ab Pel Wo Con-No Oral Or Iv (04/20/25 23:34) Vital Signs Date Time Temp Pulse Resp B/P (MAP) Pulse Ox O2 Delivery O2 Flow Rate FiO2 04/20/25 22:45 102.8 04/20/25 21:53 102.8 120 20 150/73 (98) 93 102.8 04/20/25 18:49 116 18 130/46 04/20/25 18:30 98.1 112 18 130/45 (73) 99 98.1 04/20/25 17:08 100.8 112 20 107/58 (74) 97 100.8 Laboratory Tests Test 04/20/25 14:29 White Blood Count 8.5 10^3/uL (4.4-10.8) Medications Medications Dose Ordered Sig/Feroz Route Start Time Stop Time Status Last Admin Dose Admin Acetaminophen 650 mg ONCE ONCE PO 04/20/25 22:45 04/20/25 22:46 DC 04/20/25 22:45 650 MG Morphine Sulfate 4 mg ONCE ONCE IV 04/20/25 18:00 04/20/25 18:01 DC 04/20/25 18:49 4 MG Ondansetron HCl 4 mg ONCE ONCE IV 04/20/25 18:00 04/20/25 18:01 DC 04/20/25 18:50 4 MG Pantoprazole Sodium 40 mg ONCE ONCE IV 04/20/25 18:00 04/20/25 18:01 DC 04/20/25 18:47 40 MG Assessment/Plan Assessment/Plan # Sepsis due to pyelonephritis -Patient came with lower abdominal pain, fever, nausea, loss of appetite -On examination, lower abdominal tender on deep palpation, increased temperature -Patient become tachycardic and increased temperature on admission(T 100.4, HR 118) -NO LEUKOCYTOSIS BUT LEFT-SHIFTED(NEUTROPHIL 83.3) -UA: Ketones 1+, blood trace, nitrate 2+, leukocyte esterase 2+, RBC 16, WBC 73, bacteria few -Lipase 34 -CT abdomen pelvis without contrast: Air noted within the right renal pelvis. An irregular, slightly elongated calculus in the proximal right ureter at the ureteropelvic junction measures approximately 9 mm in length and 4 mm axially. This may also represent 2 separate adjacent calculi. There is moderate right hydronephrosis. -ULTRASOUND GALLBLADDER: No gallstones or acute cholecystitis. Common bile duct not visualized.Hepatomegaly and hepatic steatosis. Nonobstructive right intrarenal calculi. -NSS 1 L bolus stat -NSS 125 cc/hours -lactic acid level 1.1 -Urine culture -And blood culture -Ondansetron 4 mg q.6 p.r.n. -Zosyn IV switch to IV meropenem and vancomycin -Urology consult due to emphysematous changes right renal pelvis and elongated calculus in proximal right ureter. # Hypercalcemia -Calcium level 13.0 > 12.6 -NSS 125 cc/hours -Vitamin-D level -Serum phosphorous level -PTH 261.3 -Nephrology consult # Hepatomegaly and hepatic steatosis -ULTRASOUND GALLBLADDER: No gallstones or acute cholecystitis. -Common bile duct not visualized.Hepatomegaly and hepatic steatosis. # Essential hypertension -Hold home medication lisinopril 20 mg due to low BP -Monitor blood pressure # Hyperlipidemia -Home medication rosuvastatin 10 mg, fenofibrate 48 mg -will resume statin. # Anemia of chronic disease -FeSO4-home meds # Vertigo -Meclizine 10 mg p.o. # Type 2 diabetes mellitus with hyperglycemia -Home meds-dapagliflozin 10 mg, glipizide 10 mg, metformin 500 mg Mounjaro 7.5 mg/0.5 mL-weekly -Hold Lantus 20 units for now, resume according to blood sugar -Start insulin sliding dose Diet: Clear liquid diet GI prophylaxis: Pantoprazole 40 mg daily DVT prophylaxis: Lovenox 40 40 mg sc daily Goals of care discussions, more than 27 minute spent with patient. Full code status. Case discussed with Dr. Redmond. Plan discussed with: Patient, Other (Nurse, daughter Komal) My Orders Orders - TARYN GREGORIO Procedure Category Date Status Time Admit ADMIT 04/20/25 Verified 23:34 Nitroglycerin PHA 04/20/25 Verified Sublingual (Ntrostat 23:45 Morphine Sulfate PHA 04/20/25 Verified Injection 23:45 Clear Liq Diet DIET 04/21/25 Verified Breakfast NS PHA 04/20/25 Verified 23:45 Acetaminophen Tablet PHA 04/20/25 Verified (Tylenol Tablet) 23:45 Ct Ab Pel Wo Con-No CT 04/20/25 Verified Oral Or Iv 23:34 Date of Service: Apr 20, 2025 Billing Provider: CAMRON REDMOND MD Common Visit Codes: 49009-QRFOKSK INP/OBS CARE (HIGH) Secondary Visit Codes: 30594-YCFHQRQX CARE PLAN 30 MINUTES TARYN GREGORIO Apr 20, 2025 23:41
[2025-04-20] MEDS ORDERED: MORPHINE SULFATE INJ 2 MG/ml SYRG IV PRN (23:45)
[2025-04-20] MEDS ORDERED: NITROGLYCERIN 0.4 MG SL TAB SL PRN (23:45)
[2025-04-21] VITALS (13 sets, daily range): BP systolic 102–149; BP diastolic 50–66; PULSE 99–114; RESP 14–24; TEMP 97.5–99.5; O2SAT 90–97
[2025-04-21] MEDS: SODIUM CHLORIDE 0.9% 2,000 ML IV ONE (00:22)
[2025-04-21] MEDS ORDERED: DEXTROSE (50%) 50ML SYRG IV PRN (01:15)
[2025-04-21] MEDS ORDERED: ONDANSETRON HCL 4 MG/2 ML VIAL IV PRN (01:15)
--- NOTE | 2025-04-21 01:26 | DVH ---
CT SCAN ABDOMEN AND PELVIS WITHOUT CONTRAST CLINICAL HISTORY: Intractable abdominal pain TECHNIQUE: Helical axial images are obtained from the lung bases through the pelvis without oral cont rast. No intravenous contrast was administered. Coronal and sagittal reformatted images were generate d from thin section reconstructions. One or more of the following radiation dose reduction techniques were used for this examination: automated exposure control, adjustment of the mA and/or kV according to patient size, use of iterative reconstruction technique. COMPARISON: Right upper quadrant ultrasound obtained earlier the same day. FINDINGS: LOWER THORAX: Scattered atelectasis/ scarring in the imaged lung bases. ABDOMEN AND PELVIS: Evaluation of visceral and vascular structures is limited due to lack of contrast administration. Decreased hepatic parenchymal attenuation which is most commonly secondary to fatty infiltration. No discrete hepatic lesions as visualized. The unenhanced spleen, pancreas and adrenals appear grossly u nremarkable. No sizable, radiopaque cholelithiasis or biliary ductal dilatation. Air noted within the right renal pelvis. An irregular, slightly elongated calculus in the proximal r ight ureter at the ureteropelvic junction measures approximately 9 mm in length and 4 mm axially. Th is may also represent 2 separate adjacent calculi. There is moderate right hydronephrosis. No evidence of abdominal aortic aneurysm. No evidence of small-bowel obstruction. Normal caliber appendix. No free intraperitoneal air or flu id identified. Scattered colonic diverticuli without CT evidence of diverticulitis. Nondependent air noted within the mildly thickened urinary bladder. No sizable bladder calculus. No destructive osseous lesions identified. IMPRESSION: Obstructing calculus/calculi at the RIGHT ureteropelvic junction, as above. Air within the right renal collecting system and bladder concerning for emphysematous infection. Greg mmend urologic consultation. A few other findings as above. HS:Y
[2025-04-21] MEDS: SODIUM CHLORIDE 0.9% 1,000 ML IV ONE (02:43)
[2025-04-21] MEDS ORDERED: VANCOMYCIN PER PHARMACY 0 MG IV SCH (04:00)
[2025-04-21 04:11] LABS: Hematocrit 48.2 % (36.0-46.0); Hemoglobin 15.9 g/dL (12.2-16.2); Mean Corpuscular Hemoglobin 29.6 pg (28.0-32.0); Mean Corpuscular Volume 89.7 fL (80.0-100.0); Nucleated Red Blood Cells % 0.0 %
[2025-04-21 04:12] LABS: Chloride 103 mmol/L (98-107); Potassium 5.1 mmol/L (3.5-5.1)
[2025-04-21 04:13] LABS: Anion Gap 11 (5-15)
[2025-04-21 04:18] LABS: BUN/Creatinine Ratio 17.1 (10.0-20.0); Blood Urea Nitrogen 22 mg/dL (9-23)
[2025-04-21 04:37] LABS: Calcium 12.6 mg/dL (8.7-10.4); Carbon Dioxide 20 mmol/L (20-31); Glucose 180 mg/dL (74-106); Sodium 134 mmol/L (136-145)
[2025-04-21] MEDS: SODIUM CHLORIDE 0.9% 1,000 ML IV SCH (04:38)
[2025-04-21] MEDS: PIPERACILLIN-TAZOB 3.375GM 100 ML IV ONE (04:40)
--- NOTE | 2025-04-21 05:26 | DVH ---
CHEST RADIOGRAPH Indication: To rule out cardiopulmonary disease Technique: Single frontal view of the chest was obtained COMPARISON: CHEST PORTABLE on DOS: 10/21/21, CHEST PORTABLE on DOS: 10/20/21, CHEST PORTABLE on DOS: , CHEST XRAY 1 VIEW on DOS: 10/18/21, CHEST PORTABLE on DOS: 10/08/21 FINDINGS: Lines and Tubes: None Lungs: Clear. Mild diffuse increased prominence of the pulmonary vasculature. Pleura: No effusion. No pneumothorax. Cardiomediastinal contours: Unremarkable Bones: Unremarkable IMPRESSION: 1. No acute disease. Mild diffuse increased prominence of the pulmonary vasculature.
[2025-04-21 05:50] LABS: INR 1.02 (0.9-1.15); Partial Thromboplastin Time 33.3 SEC (24.5-34.5); Prothrombin Time 10.8 sec (9.3-11.8)
--- NOTE | 2025-04-21 05:56 | ECG ---
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
[2025-04-21] MEDS: InsuLIN REG 1unit/0.01ml Soln (100units/ml) SC SCH ×2 (06:10→21:54)
[2025-04-21] MEDS: ACCU-CHEK COMFORT CURVE STRIP VI SCH (06:10)
[2025-04-21] MEDS: ACETAMINOPHEN 325 MG TAB PO PRN (07:51)
--- NOTE | 2025-04-21 09:06 | DVHCONRES ---
Date Seen: Apr 21, 2025 Resident Creating Document: MEGHAN LIAO RESIDENT Referring Physician MD Aguilar History of Present Illness This is a 50-year-old female with past medical history of Anemia, Anxiety, DM2, HTN, Kidney Stones, TIA, Parathyroid tumor, HLD came to ED with the complain of lower abdominal pain for 2 days which is worsen today, 10/10 intensity, localized, sharp pain, tried lidocaine patch and cold water which helps a little, aggravated on movement or deep palpation associated with nausea, fever, loss of appetite, headache. Patient use walker during ambulation due to diabetic neuropathy. Patient daughter Komal with patient during encounter stated patient visited recently with her primary care last week and treated UTI with po antibiotic. Never seen by GI spl, never done endoscopy or colonoscopy. Denies any chest pain, SOB, headache, cough, vomiting, nausea, diarrhea. Nephrology consulted for hypercalcemia Patient seen and examined at the bedside. 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 Patient was scheduled for parathyroidectomy prior to COVMO but got delayed. Has not seen oyster worker in the past 6 months. Reports taking vitamin-D supplements and lisinopril for blood pressure. Reports constipation and that she is not passing gas. Family History: Diabetes mellitus G8 MOTHER, G8 FATHER, FH: [place]'s disease G8 FATHER, FH: prostate cancer G8 FATHER, Allergies: Coded Allergies: NO KNOWN ALLERGIES (Unverified , 08/11/16) Home Meds Active Scripts Cephalexin (KEFLEX CAPSULE) 250 Mg Cp, 500 MG PO BID for 10 Days, #40 CAP Prov:SALEEM GANNON RESIDENT 04/24/25 Cinacalcet Hydrochloride (Sensipar) 30 Mg Tab, 30 MG PO BID for 30 Days, #60 TAB 0 Refills Prov:MEGHAN LIAO RESIDENT 04/22/25 Ciprofloxacin Hcl (Cipro) 250 Mg Tab, 250 MG PO BID for 5 Days, #10 TAB Prov:OG NICHOLS MD 02/14/24 Reported Medications Meclizine HCl (Meclizine Hydrochloride) 25 Mg Tab, 1 TAB PO BIDPRN PRN for VERTIGO 02/12/24 Lidocaine (Lidocaine) 5 % Pad, 1 PATCH TOP DAILY 02/12/24 Ergocalciferol (Vitamin D) 50,000 Unit Cap, 1 CAP PO QWEEKLY 02/12/24 Dapagliflozin Propanediol (Farxiga) 10 Mg Tab, 1 TAB PO DAILY 02/12/24 Aspirin (Aspirin Low Dose) 81 Mg Tab, 1 TAB PO DAILY 02/12/24 Fenofibrate (FENOFIBRATE) 48 Mg Tab, 1 TAB PO DAILY 02/12/24 Magnesium Oxide (mg Supplement (Magnesium-Oxide) 400 Mg Tab, 1 TAB PO DAILY 02/12/24 Semaglutide (Ozempic) 8 Mg/3 Ml Inj, 2 MG SC QWEEKLY 02/12/24 Finerenone (Kerendia) 20 Mg Tab, PO 02/12/24 Lidocaine (Ztlido) 1.8 % Pad, TOP 02/12/24 Tirzepatide (Mounjaro) 7.5 Mg/0.5 Ml Inj, SC 02/12/24 Metformin Hydrochloride (Metformin Hcl) 500 Mg Tab, 1 TAB PO 02/12/24 Ferrous Sulfate (Iron (Ferrous Sulfate)) 50 Mg Tab, 325 MG PO BID, TAB 05/26/19 Lisinopril (Lisinopril) 20 Mg Tab, 20 MG PO DAILY, TAB 05/26/19 Glipizide (Glipizide) 10 Mg Tab, 1 TAB PO BID, #180 TAB 3 Refills 05/26/19 Current Medications Current Medications Medications (Trade) Dose Ordered Sig/Feroz Route PRN Reason Start Time Stop Time Status Last Admin Nitroglycerin (Ntrostat Sublingual) 0.4 mg Q5MINP PRN SL FOR CHEST PAIN 04/20/25 23:45 Morphine Sulfate 2 mg Q30M PRN IV FOR CHEST PAIN 04/20/25 23:45 Acetaminophen (Tylenol Tablet) 650 mg Q6HP PRN PO MILD PAIN (1-3 PAIN SCALE) 04/20/25 23:45 04/21/25 07:51 Sodium Chloride 1,000 ml @ 125 mls/hr Q8H IV 04/21/25 01:15 04/21/25 04:38 Diagnostic Test (Pha) (Accu-Chek Comfort Curve T) 1 strip ACHS 04/21/25 07:00 04/21/25 06:10 Insulin Human Regular (InsuLIN R) HS SC 04/21/25 22:00 Insulin Human Regular (InsuLIN R) AC SC 04/21/25 07:00 04/21/25 06:10 Dextrose 50 ml UD PRN IV Blood Sugar LESS THAN 60 04/21/25 01:15 Ondansetron HCl (Zofran) 4 mg Q6HPRN PRN IV NAUSEA / VOMITING 04/21/25 01:15 Piperacillin Sod/ Tazobactam Sod 100 ml @ 25 mls/hr Q8HR IV 04/21/25 14:00 04/21/25 04:02 DC Enoxaparin Sodium (Lovenox) 40 mg DAILY SC 04/21/25 10:00 Pantoprazole Sodium (Protonix) 40 mg DAILY IV 04/21/25 10:00 Vancomycin HCl 0 ml @ 0 mls/hr UD IV 04/21/25 04:00 UNV Meropenem 50 ml @ 17 mls/hr Q8HR IV 04/21/25 14:00 Vital Signs Vital Signs Date Time Temp Pulse Resp B/P (MAP) Pulse Ox O2 Delivery O2 Flow Rate FiO2 04/21/25 07:58 114 15 97 Nasal Cannula* 2 28 04/21/25 07:30 99.5 131/49 (76) 99.5 Physical Exam Obese female patient lying in bed, no acute distress General: Obese, afebrile, palor, mucosae are moist Cardiovascular: Regular S1 and S2. No murmurs, gallops or rubs. No JVD elevation. No pedal edema Respiratory: Normal B/L air entry on nasal cannula supplementation, Clear lung sounds on auscultation Abdomen: Soft, nontender, nondistended, normoactive bowel sounds, no rebound tenderness, no organomegaly, no masses Genitourinary: Deferred MSK/skin: Mobilizes 4 limbs. Skin is dry and warm Neurological: No motor, no sensitive deficits, normal speech. Pupils are isocoric and reactive. Psych/Mental Status: A/Ox3 Labs/Diagnostic Data Labs Test 04/21/25 06:05 04/21/25 02:00 04/20/25 14:29 04/20/25 12:55 Range/Units POC Glucose 165 H 70-106 mg/dl White Blood Count 10.0 4.4-10.8 10^3/uL Red Blood Count 5.37 H 4.0-5.20 10^6/uL Hemoglobin 15.9 12.2-16.2 g/dL Hematocrit 48.2 H 36.0-46.0 % Mean Corpuscular Volume 89.7 80.0-100.0 fL Mean Corpuscular Hemoglobin 29.6 28.0-32.0 pg Mean Corpuscular Hemoglobin Concent 33.0 32.0-36.0 g/dL Red Cell Distribution Width 15.8 H 11.8-14.3 % Platelet Count 309 140-450 10^3/uL Mean Platelet Volume 7.8 6.9-10.8 fL Neutrophils (%) (Auto) 76.9 37.0-80.0 % Lymphocytes (%) (Auto) 12.0 10.0-50.0 % Monocytes (%) (Auto) 10.7 0.0-12.0 % Eosinophils (%) (Auto) 0.2 0.0-7.0 % Basophils (%) (Auto) 0.2 0.0-2.0 % Neutrophils # (Auto) 7.7 1.6-8.6 10 ^3/uL Lymphocytes # (Auto) 1.2 0.4-5.4 10 ^3/uL Monocytes # (Auto) 1.1 0-1.3 10 ^3/uL Eosinophils # (Auto) 0 0-0.8 10 ^3/uL Basophils # (Auto) 0 0-0.2 10 ^3/uL Nucleated Red Blood Cells 0.0 % Prothrombin Time 10.8 9.3-11.8 sec Prothrombin Time INR 1.02 0.9-1.15 Activated Partial Thromboplast Time 33.3 24.5-34.5 SEC Sodium Level 134 L 136-145 mmol/L Potassium Level 5.1 3.5-5.1 mmol/L Chloride Level 103 98-107 mmol/L Carbon Dioxide Level 20 20-31 mmol/L Anion Gap 11 5-15 Blood Urea Nitrogen 22 9-23 mg/dL Creatinine 1.29 #H 0.550-1.02 mg/dL Glomerular Filtration Rate Calc 50 >90 mL/min BUN/Creatinine Ratio 17.1 10.0-20.0 Serum Glucose 180 H 74-106 mg/dL Hemoglobin A1c 8.0 H <5.7 % A1C Lactic Acid Level 1.1 0.4-2.0 mmol/L Calcium Level 12.6 H 8.7-10.4 mg/dL Phosphorus Level 3.5 2.4-5.1 mg/dL B-Type Natriuretic Peptide 14.58 0-100 pg/mL Vitamin D 25-Hydroxy 52.0 30.0-100 ng/mL Parathyroid Hormone (Intact) 261.3 H 18.4-80.1 pg/mL Total Bilirubin 0.3 0.2-1.0 mg/dL Aspartate Amino Transferase (AST) 31 13-40 U/L Alanine Aminotransferase (ALT) 30 7-40 U/L Alkaline Phosphatase 110 46-116 U/L Total Protein 7.9 5.7-8.2 g/dL Albumin 4.8 3.2-4.8 g/dL Lipase 34 12-53 U/L Urine Color Yellow Yellow Urine Clarity Clear Clear Urine pH 5.5 5.0-9.0 Urine Specific [place] 1.026 1.001-1.035 Urine Protein Negative Negative Urine Ketones 1+ H Negative Urine Blood Trace H Negative /uL Urine Nitrite 2+ H Negative Urine Bilirubin Negative Negative Urine Urobilinogen Normal Negative mg/dL Urine Leukocyte Esterase 2+ Negative /uL Urine RBC 16 0 - 4 /hpf Urine Microscopic WBC 73 H 0-5 /HPF Urine Squamous Epithelial Cells Few <5 /hpf Urine Bacteria Few H None Seen /hpf Urine Glucose 4+ H Normal mg/dL Plan/Recommendation Sepsis secondary to Complicated emphysematous pyelonephritis Right obstructing UPJ calculi Acute kidney injury, likely due to obstruction Moderate chronic hypercalcemia secondary to likely likely parathyroid adenoma ? Parathyroid adenoma Diabetes mellitus type 2-A1c 8.0 Hypertension Plan: Patient likely has chronic hypercalcemia from primary hyperparathyroidism bleeding to right renal stone, now infected, complicated pyelonephritis. Patient will benefit from parathyroidectomy. Urology consultation for nephrostomy tube placement FeNa 0.9% - pre renal - continue IV NS Consider sestamibi scan Continue aggressive hydration with IV NS Continue IV antibiotics Monitor renal function and urine output Avoid lisinopril given hyperkalemia, thiazide diuretics or vitamin-D supplements given hypercalcemia Consider nifedipine if the patient becomes hypertensive Strict I&Os Follow up with urine protein/urine creatinine and FENA Plan discussed with patient in which all questions have been answered Case discussed with Dr. Ruiz Plan discussed with: Patient ADDENDUM ADDENDUM 50-year-old female presents to the hospital complaining of flank pain was found to have obstructing kidney stone status post percutaneous nephrostomy tube placement. She was also noted to have severe hypercalcemia with a calcium greater than 13. Patient endorses a history of hyperparathyroidism and was recommended for parathyroid gland removal however patient did not follow-up. IV bisphosphonate IV fluids Treatment of bacteremia Monitoring urinary output from percutaneous nephrostomy tube. Agree with assessment and plan of resident. Care time spent 56 minutes MEGHAN LIAO RESIDENT Apr 21, 2025 09:06 ESTRADA RUIZ MD Apr 24, 2025 13:36
[2025-04-21] MEDS: MEROPENEM 1GM IVPB 50 ML IV ONE (09:16)
[2025-04-21] MEDS: ENOXAPARIN SOD 40 MG/0.4 ML SYRINGE SC SCH (10:23)
[2025-04-21] MEDS: PANTOPRAZOLE 40 MG/10 ML VIAL INJ IV SCH (10:23)
--- NOTE | 2025-04-21 11:56 | DVHSR ---
APPROVED REPORT EXAM: Two-dimensional and M-mode echocardiogram with Doppler and color Doppler. Blood Pressure: 131/61 mmHg INDICATION To rule out heart failure RISK FACTORS Obesity: Height: 5'5", Weight: 214 DIMENSIONS LVDd3.2 (3.8-5.7cm)LA (2D)3.5 (1.9-4.0cm)Aortic Root3.3 (2.0-3.7cm) LVDs2.2 (2.5-4.0cm)LA (MM) (1.9-4.0cm)Aortic Cusp Exc1.9 (1.5-2.0cm) EF (%) 60.0 (55-70%)Rt. Atrium4.2 (1.9-4.0cm)Asc. Aorta cm IVSd1.5 (0.7-1.1cm)RV (D) (1.8-2.4cm) PWd1.4 (0.7-1.1cm) Mitral Valve MitralMitral Stenosis E wave0.60m/sMV Mean GR.mmHg A wave0.62m/sMV Peak GR.mmHg E/A ratio1.02D MVAcm2 DECEL [id number] 1/2 Timems Aortic Valve Aortic ValveAortic Stenosis V11.00m/Jose Mean GR.3mmHg V21.20m/Jose Peak GR.6mmHg LVOT Diameter2.1 (1.8-2.4cm)Doppler AVA2.88cm2 Pulmonic Valve V20.92m/s Other Information Technically limited study due to body habitus. Conclusion lvef 60% normal LV and RV function mild to moderate LVH RV moderate enlarged no severe valve abnormalities noted normal pericardium
--- NOTE | 2025-04-21 12:44 | DVHINCON2 ---
Date of service: Apr 21, 2025 Referring Physician hospitalist Reason for Consultation obstructive uropathy History of Present Illness History Source: Patient, RN Notes, MD Notes Exam Limitations: No limitations HPI 50 y.o female with PMHx of HTN, HLD, parathyroid disease, TIA, anxiety and vertigo, presents to the ED for a chief complaint of epigastric pain radiating to her back associated with nausea, constipation and a fever. Patient describes pain as sharp, constant, and rating a 8/10 on the pain scale. Patient reports similar symptoms in the past, was diagnosed with diverticulitis but never admitted or given treatment. Patient reports last BM was 2 days ago. Patient denies any vomiting, chills, bloody stool, hematuria. CT A/P Air noted within the right renal pelvis. An irregular, slightly elongated calculus in the proximal right ureter at the ureteropelvic junction measures approximately 9 mm in length and 4 mm axially. This may also represent 2 separate adjacent calculi. There is moderate right hydronephrosis. Home Meds Active Scripts Ciprofloxacin Hcl (Cipro) 250 Mg Tab, 250 MG PO BID for 5 Days, #10 TAB Prov:OG NICHOLS MD 02/14/24 Reported Medications Meclizine HCl (Meclizine Hydrochloride) 25 Mg Tab, 1 TAB PO BIDPRN PRN for VERTIGO 02/12/24 Lidocaine (Lidocaine) 5 % Pad, 1 PATCH TOP DAILY 02/12/24 Ergocalciferol (Vitamin D) 50,000 Unit Cap, 1 CAP PO QWEEKLY 02/12/24 Dapagliflozin Propanediol (Farxiga) 10 Mg Tab, 1 TAB PO DAILY 02/12/24 Aspirin (Aspirin Low Dose) 81 Mg Tab, 1 TAB PO DAILY 02/12/24 Fenofibrate (FENOFIBRATE) 48 Mg Tab, 1 TAB PO DAILY 02/12/24 Magnesium Oxide (mg Supplement (Magnesium-Oxide) 400 Mg Tab, 1 TAB PO DAILY 02/12/24 Semaglutide (Ozempic) 8 Mg/3 Ml Inj, 2 MG SC QWEEKLY 02/12/24 Finerenone (Kerendia) 20 Mg Tab, PO 02/12/24 Lidocaine (Ztlido) 1.8 % Pad, TOP 02/12/24 Tirzepatide (Mounjaro) 7.5 Mg/0.5 Ml Inj, SC 02/12/24 Metformin Hydrochloride (Metformin Hcl) 500 Mg Tab, 1 TAB PO 02/12/24 Ferrous Sulfate (Iron (Ferrous Sulfate)) 50 Mg Tab, 325 MG PO BID, TAB 05/26/19 Lisinopril (Lisinopril) 20 Mg Tab, 20 MG PO DAILY, TAB 05/26/19 Glipizide (Glipizide) 10 Mg Tab, 1 TAB PO BID, #180 TAB 3 Refills 05/26/19 Past Medical History Renal/: UTI Endocrine: IDDM Patient Family History: Diabetes mellitus G8 MOTHER, G8 FATHER, FH: [place]'s disease G8 FATHER, FH: prostate cancer G8 FATHER, Review of Systems Constitutional: Fever Gastrointestinal: Nausea, Vomiting, Abdominal Pain Genitourinary: Pain H&P Exam Vital Signs Vital Signs Date Time Temp Pulse Resp B/P (MAP) Pulse Ox O2 Delivery O2 Flow Rate FiO2 04/21/25 12:10 96 04/21/25 10:01 15 120/100 (107) 95 04/21/25 07:58 Nasal Cannula* 2 28 04/21/25 07:30 99.5 99.5 General Appeara: Well developed, Well nourished, Normal Appearance, Obese Pulmonary/Respiratory: Normal inspection, Normal breath sounds, Chest non- tender, Lungs clear Cardiovascular/Chest: Normal inspection, Regular rate, Normal Rhythm Neuro/Mental St: Alert, Oriented Appearance: Appropriate appearance, Appropriate insight Eye contact/ Speech: Cooperative, Good eye contact, Normal speech Skin Exam: Normal inspection, Normal color, Warm/dry Labs/Xrays [place] [address] Ph: [phone] DIAGNOSTIC IMAGING Diagnostic Imaging Report : [id number] Signed PATIENT: DALLIN BETANCUR ACCT: [id number] UNIT: [id number] : 1975 LOC: OVERFLOW ROOM / BED: [facility] / A AGE / SEX: 50 / F ADM STATUS: ADM IN SERVICE [id number] ORDERING PHYSICIAN: TARYN GREGORIO RESIDENT PROCEDURE(s): ABPL - CT AB PEL WO CON-NO ORAL OR IV REASON: Intractable abdominal pain ORDER NUMBER(s): [id number], ACCESSION NUMBER(s): [id number] CT SCAN ABDOMEN AND PELVIS WITHOUT CONTRAST CLINICAL HISTORY: Intractable abdominal pain TECHNIQUE: Helical axial images are obtained from the lung bases through the pelvis without oral contrast. No intravenous contrast was administered. Coronal and sagittal reformatted images were generated from thin section reconstructions. One or more of the following radiation dose reduction tech niques were used for this examination: automated exposure control, adjustment of the mA and/or kV according to patient size, use of iterative reconstruction technique. COMPARISON: Right upper quadrant ultrasound obtained earlier the same day. FINDINGS: LOWER THORAX: Scattered atelectasis/ scarring in the imaged lung bases. ABDOMEN AND PELVIS: Evaluation of visceral and vascular structures is limited due to lack of contrast administration. Decreased hepatic parenchymal attenuation which is most commonly secondary to fatty infiltration. No discrete hepatic lesions as visualized. The unenhanced spleen, pancreas and adrenals appear grossly unremarkable. No sizable, radiopaque cholelithiasis or biliary ductal dilatation. Air noted within the right renal pelvis. An irregular, slightly elongated calculus in the proximal right ureter at the ureteropelvic junction measures approximately 9 mm in length and 4 mm axially. This may also represent 2 separate adjacent calculi. There is moderate right hydronephrosis. No evidence of abdominal aortic aneurysm. No evidence of small-bowel obstruction. Normal caliber appendix. No free intraperitoneal air or fluid identified. Scattered colonic diverticuli without CT evidence of diverticulitis. Nondependent air noted within the mildly thickened urinary bladder. No sizable bladder calculus. No destructive osseous lesions identified. IMPRESSION: Obstructing calculus/calculi at the RIGHT ureteropelvic junction, as above. Air within the right renal collecting system and bladder concerning for emphysematous infection. Recommend urologic consultation. A few other findings as above. HS:Y ATED BY: PILLO HERNANDEZ MD DICTATED DATE/TIME: 04/21/25122 SIGNED BY: PILLO HERNANDEZ MD SIGNED DATE/TIME: 04/21/25122 CC: Labs Test 04/21/25 12:14 04/21/25 06:05 04/21/25 02:00 04/20/25 14:29 Range/Units POC Glucose 165 H 70-106 mg/dl White Blood Count 10.0 4.4-10.8 10^3/uL Red Blood Count 5.37 H 4.0-5.20 10^6/uL Hemoglobin 15.9 12.2-16.2 g/dL Hematocrit 48.2 H 36.0-46.0 % Mean Corpuscular Volume 89.7 80.0-100.0 fL Mean Corpuscular Hemoglobin 29.6 28.0-32.0 pg Mean Corpuscular Hemoglobin Concent 33.0 32.0-36.0 g/dL Red Cell Distribution Width 15.8 H 11.8-14.3 % Platelet Count 309 140-450 10^3/uL Mean Platelet Volume 7.8 6.9-10.8 fL Neutrophils (%) (Auto) 76.9 37.0-80.0 % Lymphocytes (%) (Auto) 12.0 10.0-50.0 % Monocytes (%) (Auto) 10.7 0.0-12.0 % Eosinophils (%) (Auto) 0.2 0.0-7.0 % Basophils (%) (Auto) 0.2 0.0-2.0 % Neutrophils # (Auto) 7.7 1.6-8.6 10 ^3/uL Lymphocytes # (Auto) 1.2 0.4-5.4 10 ^3/uL Monocytes # (Auto) 1.1 0-1.3 10 ^3/uL Eosinophils # (Auto) 0 0-0.8 10 ^3/uL Basophils # (Auto) 0 0-0.2 10 ^3/uL Nucleated Red Blood Cells 0.0 % Prothrombin Time 10.8 9.3-11.8 sec Prothrombin Time INR 1.02 0.9-1.15 Activated Partial Thromboplast Time 33.3 24.5-34.5 SEC Sodium Level 134 L 136-145 mmol/L Potassium Level 5.1 3.5-5.1 mmol/L Chloride Level 103 98-107 mmol/L Carbon Dioxide Level 20 20-31 mmol/L Anion Gap 11 5-15 Blood Urea Nitrogen 22 9-23 mg/dL Creatinine 1.29 #H 0.550-1.02 mg/dL Glomerular Filtration Rate Calc 50 >90 mL/min BUN/Creatinine Ratio 17.1 10.0-20.0 Serum Glucose 180 H 74-106 mg/dL Hemoglobin A1c 8.0 H <5.7 % A1C Lactic Acid Level 1.1 0.4-2.0 mmol/L Calcium Level 12.6 H 8.7-10.4 mg/dL Phosphorus Level 3.5 2.4-5.1 mg/dL B-Type Natriuretic Peptide 14.58 0-100 pg/mL Vitamin D 25-Hydroxy 52.0 30.0-100 ng/mL Parathyroid Hormone (Intact) 261.3 H 18.4-80.1 pg/mL Total Bilirubin 0.3 0.2-1.0 mg/dL Aspartate Amino Transferase (AST) 31 13-40 U/L Alanine Aminotransferase (ALT) 30 7-40 U/L Alkaline Phosphatase 110 46-116 U/L Total Protein 7.9 5.7-8.2 g/dL Albumin 4.8 3.2-4.8 g/dL Lipase 34 12-53 U/L Test 04/20/25 12:55 Range/Units Urine Color Yellow Yellow Urine Clarity Clear Clear Urine pH 5.5 5.0-9.0 Urine Specific [place] 1.026 1.001-1.035 Urine Protein Negative Negative Urine Ketones 1+ H Negative Urine Blood Trace H Negative /uL Urine Nitrite 2+ H Negative Urine Bilirubin Negative Negative Urine Urobilinogen Normal Negative mg/dL Urine Leukocyte Esterase 2+ Negative /uL Urine RBC 16 0 - 4 /hpf Urine Microscopic WBC 73 H 0-5 /HPF Urine Squamous Epithelial Cells Few <5 /hpf Urine Bacteria Few H None Seen /hpf Urine Glucose 4+ H Normal mg/dL Assessment/Plan Problem List: (1) Emphysematous pyelonephritis of right kidney (2) Sepsis due to urinary tract infection (3) UTI (urinary tract infection) Plan consult IR for right PCN placement outpt lithotripsy TBA after resolution of infection glycemic control Plan discussed with: Patient, Other MORAELS MIRELES NP Apr 21, 2025 12:44
[2025-04-21] MEDS: IODIXANOL 320MG/ML 100ML BTL IV ONE (13:05)
[2025-04-21 13:07] LABS: Protein, Urine 46.7 mg/dL (1-14)
[2025-04-21 13:13] LABS: Opiate Scree,Urine Neg (NEGATIVE)
[2025-04-21 13:14] LABS: Amphetamine Screen, Urine Neg (NEGATIVE); Barbiturate Scree,Urine Neg (NEGATIVE); Benzodiazephine Screen, Urine Neg (NEGATIVE); Cannabinoid Screen, Urine Neg (NEGATIVE); Cocaine Screen, Urine Neg (NEGATIVE); Phencyclidine Screen, Urine Neg (NEGATIVE)
[2025-04-21] MEDS: fentaNYL CITRATE 100 MCG/2 ML VL ONE (13:32)
[2025-04-21] MEDS: MIDAZOLAM HCL 2MG/2ML 2ml VIAL (1mg/ml) ONE (13:33)
[2025-04-21] MEDS: LIDOCAINE 2%HCL (LOCAL ANESTH.) INJ 20ML MDV ONE (13:33)
[2025-04-21] MEDS ORDERED: PIPERACILLIN-TAZOB 3.375GM 100 ML IV SCH (14:00)
[2025-04-21] MEDS ORDERED: MEROPENEM 1GM IVPB 50 ML IV SCH (14:00)
[2025-04-21] MEDS: FUROSEMIDE 40 MG/4 ML VIAL IV ONE (15:21)
[2025-04-21] MEDS: HYDROmorphone HCL 2 MG/ML VL/or syr IV ONE (15:23)
--- NOTE | 2025-04-21 15:25 | DVHPNRES ---
Progress Note Date Seen: Apr 21, 2025 Resident Creating Document: LINDA LOPEZ RESIDENT Medical Necessity Reason Pt with a Central, PICC or Fol: No Subjective Review of Systems 50-year-old female with a past medical history of anemia, anxiety, diabetes type 2, hypertension, kidney stones, TIA, parathyroid tumor, hyperlipidemia came to the emergency department with the complaints of lower abdominal pain for the past 2 days. Patient reported that the pain started in the epigastric region that radiated down words to both the lower right and left quadrant and then went backwards to her flanks. She rates the pain as 10/10 in intensity, sharp and she tried cocaine patches which helped a bit. She said it was associated with nausea and drinking cold water helped a little but it was aggravated on movement. She also complains that she had fever of 102, loss of appetite and headache. She had no vomiting episodes. On inquiry patient denies any burning micturition or increased in frequency. Patient uses walker to ambulate due to diabetic neuropathy. She denies any chest pain, shortness of breath, cough or change in bowel movements. Patient also reports that she had been to the PCP Recently and was prescribed antibiotics for her UTI. PMH: Iron deficiency anemia, anxiety, DM, hypertension, kidney stones, hyperparathyroidism, TIA PSH: Bilateral tubal ligation, 5 times, fibroids of the uterus that has been removed in 2021 Family history: Reviewed and noncontributory to this case Social history: Patient lives at home with the and kids, has never smoked denies using alcohol or any other drugs now or in the past Allergies: None ROS: Patient was seen and examined by me today at the bedside. Overnight events reviewed. Patient still complains of pain in her epigastric, flanks bilaterally, and right and left lower quadrants. she rates the pain as 7/ 10 in intensity and she also complains of a generalized headache of 9/10 intensity. On inquiry she says she has no burning micturition or increased frequency while urinating. Rest of the ROS is negative. Objective vital signs Vital Sign Date Time Temp Pulse Resp B/P (MAP) Pulse Ox O2 Delivery O2 Flow Rate FiO2 04/21/25 12:10 96 04/21/25 12:01 22 132/64 (86) 94 04/21/25 07:58 Nasal Cannula* 2 28 04/21/25 07:30 99.5 99.5 medications Current Medications Medications Dose Ordered Sig/Feroz Route Start Time Stop Time Status Last Admin Dose Admin Nitroglycerin 0.4 mg Q5MINP PRN SL 04/20/25 23:45 Morphine Sulfate 2 mg Q30M PRN IV 04/20/25 23:45 Acetaminophen 650 mg Q6HP PRN PO 04/20/25 23:45 04/21/25 07:51 650 MG Sodium Chloride 1,000 ml @ 125 mls/hr Q8H IV 04/21/25 01:15 04/21/25 09:17 125 MLS/HR Diagnostic Test (Pha) 1 strip ACHS 04/21/25 07:00 04/21/25 11:45 1 STRIP Insulin Human Regular HS SC 04/21/25 22:00 Insulin Human Regular AC SC 04/21/25 07:00 04/21/25 12:06 3 UNITS Dextrose 50 ml UD PRN IV 04/21/25 01:15 Ondansetron HCl 4 mg Q6HPRN PRN IV 04/21/25 01:15 Enoxaparin Sodium 40 mg DAILY SC 04/21/25 10:00 04/21/25 10:23 40 MG Pantoprazole Sodium 40 mg DAILY IV 04/21/25 10:00 04/21/25 10:23 40 MG Vancomycin HCl 0 ml @ 0 mls/hr UD IV 04/21/25 04:00 Meropenem 50 ml @ 17 mls/hr Q8H IV 04/21/25 17:00 Examination Pt is lying on bed General Appearance: Alert, Oriented X3, Cooperative, mild distress HEENT: Atraumatic, Mucous membranes moist/pink Respiratory: Clear to auscultation, Normal air movement, No added sounds Cardiovascular: Regular rate, Normal S1, Normal S2, No murmurs Abdominal: Active bowel sounds, Soft, tenderness in both flanks, suprapubic region and right and left lower quadrant as well as epigastric region Extremities: No edema, Normal pulses, No tenderness/swelling Skin: No Significant rash, except past surgical scars Neuro: Normal speech, sensorimotor deficits none Psych/Mental Status: Mental status NL, Mood NL Nurse was there as academic coordinator during examination laboratory and microbiology Laboratory Tests 04/21/25 02:00 Test 04/21/25 02:00 Range/Units Serum Glucose 180 H 74-106 mg/dL Microbiology Date/Time Source Procedure Growth Status 04/21/25 01:50 Blood Blood Culture - Preliminary Resulted Labs and/or images reviewed: Labs reviewed by me, Image(s) reviewed by me Problem List/Assessment/Plan Problem List/Assessment/Plan # Sepsis likely secondary to UTI/? pyelonephritis # Emphysematous right kidney # Obstructive right kidney nephrolithiasis -CT abdomen pelvis without contrast: Air noted within the right renal pelvis. An irregular, slightly elongated calculus in the proximal right ureter at the ureteropelvic junction measures approximately 9 mm in length and 4 mm axially. This may also represent 2 separate adjacent calculi. There is moderate right hydronephrosis. -Ultrasound gallbladder: No gallstones or acute cholecystitis; Common bile duct not visualized. Hepatomegaly and hepatic steatosis. Nonobstructive right intrarenal calculi. -IVF -Urine culture, blood culture, pending -Ondansetron 4 mg q.6 p.r.n. -Zosyn IV switch to IV meropenem and vancomycin -Urology consult seen and advised to consult IR for right PCN placement and outpatient lithotripsy TBA after resolution of infection - IR consult performed status post placement of 8.5 faro[place] right percutaneous nephrostomy catheter. # Hypercalcemia likely from primary hyperparathyroidism likely from parathyroid adenoma -Calcium level 13.0 -> 12.6 -Vitamin-D level -Serum phosphorous level -PTH -given 1 dose of Lasix -Nephrology consult -patient need parathyroidectomy as soon as possible on outpatient basis -monitor lab # hepatomegaly and hepatic steatosis - As seen in Ct abd/pel - Ultrasound gallbladder: No gallstones or acute cholecystitis. - Common bile duct not visualized. Hepatomegaly and hepatic steatosis. # Essential hypertension -Hold home medication lisinopril 20 mg due to low BP -Monitor blood pressure # Hyperlipidemia -Home medication rosuvastatin 10 mg, fenofibrate 48 mg # Anemia of chronic disease -FeSO4-home meds # Vertigo -Meclizine 10 mg p.o. # Type 2 diabetes mellitus with hyperglycemia -Accuchecks -Start insulin sliding dose Diet: Clear liquid diet GI prophylaxis: Pantoprazole 40 mg daily DVT prophylaxis: Lovenox 40 40 mg sc daily Goals of care discussed with the patient for more than 27 minutes: Full code status Case discussed with Dr. Andrew, patient and nurse. Plan discussed with: Patient, Other (rn) Date of Service: Apr 21, 2025 Billing Provider: TIMBO ANDREW MD Common Visit Codes: [id number] INP/OBS CARE(HIGH) LINDA LOPEZ RESIDENT Apr 21, 2025 15:25 SALEEM GANNON RESIDENT Apr 21, 2025 16:42 TIMBO ANDREW MD Apr 21, 2025 22:51
--- NOTE | 2025-04-21 15:34 | DVH ---
XY PERCUTANEOUS NEPHROSTOMY, HISTORY: NEPHROTUBE due to obstructive uropathy and a proximal right kidney stone. PROCEDURE: Informed consent was obtained. The patient was placed on the fluoroscopic table in a prone position and IV sedation administered. The right flank was prepped with chlorhexidine which was allo wed to dry and draped in the usual sterile fashion. Time out was performed. and the soft tissues infi ltrated with 1% lidocaine local anesthetic. Utilizing ultrasound guidance, a 21 gauge Chiba needle wa s advanced from a posterolateral approach into an inferior pole calyx, and a small amount of contrast was injected under fluoroscopy to confirm positioning. Over a mandril wire, exchange was made to a n on-vascular access set, through which was advanced an 0.035 wire. Following serial dilation, an 8.5 F rench multipurpose nephrostomy catheter was placed with tip pigtailed within the renal pelvis. Positi on was confirmed with antegrade nephrostogram. The catheter was secured in place and connected to gra vity drainage. A sterile dressing was applied. No immediate complication was identified. DAP 362 FLUOROSCOPY TIME: 1.5 minutes. CONTRAST USED: 15 mL. SEDATION: Dr. Marcin Nguyen was personally responsible for the administration of moderate sedation during the procedure performed, including the use of an independent trained observer who had no other duties during the procedure. The drugs utilized were IV fentanyl and versed (see nursing log for details). The total time of supervision by the attending physician was approximately 30 minutes. FINDINGS: Dilated right renal collecting system involving the calyces/renal pelvis/ureter to the leve l of the proximal ureter. New 8.5 [place] nephrostomy tube via a posterior lower pole calyceal access , with loop coiled within the renal pelvis. IMPRESSION: Right hydronephrosis due to partially obstructive right kidney stone at the proximal ureter, status p ost placement of 8.5 [place] right percutaneous nephrostomy catheter. PLAN: Routine catheter care.
--- NOTE | 2025-04-21 15:34 | DVH ---
XY PERCUTANEOUS NEPHROSTOMY, HISTORY: NEPHROTUBE due to obstructive uropathy and a proximal right kidney stone. PROCEDURE: Informed consent was obtained. The patient was placed on the fluoroscopic table in a prone position and IV sedation administered. The right flank was prepped with chlorhexidine which was allo wed to dry and draped in the usual sterile fashion. Time out was performed. and the soft tissues infi ltrated with 1% lidocaine local anesthetic. Utilizing ultrasound guidance, a 21 gauge Chiba needle wa s advanced from a posterolateral approach into an inferior pole calyx, and a small amount of contrast was injected under fluoroscopy to confirm positioning. Over a mandril wire, exchange was made to a n on-vascular access set, through which was advanced an 0.035 wire. Following serial dilation, an 8.5 F rench multipurpose nephrostomy catheter was placed with tip pigtailed within the renal pelvis. Positi on was confirmed with antegrade nephrostogram. The catheter was secured in place and connected to gra vity drainage. A sterile dressing was applied. No immediate complication was identified. DAP 362 FLUOROSCOPY TIME: 1.5 minutes. CONTRAST USED: 15 mL. SEDATION: Dr. Marcin Nguyen was personally responsible for the administration of moderate sedation during the procedure performed, including the use of an independent trained observer who had no other duties during the procedure. The drugs utilized were IV fentanyl and versed (see nursing log for details). The total time of supervision by the attending physician was approximately 30 minutes. FINDINGS: Dilated right renal collecting system involving the calyces/renal pelvis/ureter to the leve l of the proximal ureter. New 8.5 [place] citizen nephrostomy tube via a posterior lower pole calyceal access , with loop coiled within the renal pelvis. IMPRESSION: Right hydronephrosis due to partially obstructive right kidney stone at the proximal ureter, status p ost placement of 8.5 [place] citizen right percutaneous nephrostomy catheter. PLAN: Routine catheter care.
[2025-04-21] MEDS: MEROPENEM 1GM IVPB 50 ML IV SCH (17:15)
[2025-04-21] MEDS: MORPHINE SULFATE INJ 2 MG/ml SYRG IV ONE (22:16)
[2025-04-22] VITALS (7 sets, daily range): BP systolic 102–140; BP diastolic 60–75; PULSE 97–117; RESP 16–18; TEMP 97.9–99.7; O2SAT 91–97
[2025-04-22] MEDS: HYDROcodone-ACET 5/325MG TAB PO ONE (05:46)
[2025-04-22 07:46] LABS: Alanine Aminotransferase 18 U/L (7-40); Albumin 3.9 g/dL (3.2-4.8); Alkaline Phosphatase 77 U/L (46-116); Anion Gap 14 (5-15); BUN/Creatinine Ratio 23.9 (10.0-20.0); Blood Urea Nitrogen 17 mg/dL (9-23); Carbon Dioxide 20 mmol/L (20-31); Chloride 103 mmol/L (98-107); Glucose 105 mg/dL (74-106); Potassium 4.4 mmol/L (3.5-5.1); Sodium 137 mmol/L (136-145); Total Protein 6.6 g/dL (5.7-8.2)
[2025-04-22 07:47] LABS: Bilirubin, Total 0.4 mg/dL (0.2-1.0)
[2025-04-22 07:49] LABS: Calcium 13.2 mg/dL (8.7-10.4)
[2025-04-22] MEDS: ZOLEDRONIC ACID 4 MG in SODIUM CHL 0.9% 100 ML IV ONE (09:03)
[2025-04-22] MEDS ORDERED: VANCOMYCIN 1.75GM/350ML 350 ML IV SCH (11:00)
[2025-04-22] MEDS: SODIUM CHLORIDE 0.9% 500 ML IV ONE (11:00)
[2025-04-22] MEDS ORDERED: POLYETHYLENE GLYCOL 17 GM PWDR PO PRN (13:00)
[2025-04-22] MEDS ORDERED: CINA30TA2 PO (13:42)
--- NOTE | 2025-04-22 13:43 | DVHPN2 ---
Progress Note Date Seen: Apr 22, 2025 Resident Creating Document: MEGHAN LIAO RESIDENT Medical Necessity Reason Pt with a Central, PICC or Fol: No Subjective Review of Systems This is a 50-year-old female with past medical history of Anemia, Anxiety, DM2, HTN, Kidney Stones, TIA, Parathyroid tumor, HLD came to ED with the complain of lower abdominal pain for 2 days which is worsen today, 10/10 intensity, localized, sharp pain, tried lidocaine patch and cold water which helps a little, aggravated on movement or deep palpation associated with nausea, fever, loss of appetite, headache. Patient use walker during ambulation due to diabetic neuropathy. Patient daughter oKmal with patient during encounter stated patient visited recently with her primary care last week and treated UTI with po antibiotic. Never seen by GI spl, never done endoscopy or colonoscopy. Denies any chest pain, SOB, headache, cough, vomiting, nausea, diarrhea. Nephrology consulted for hypercalcemia 04/21-Patient seen and examined at the bedside. [facility] Cab[facility]. Patient was scheduled for parathyroidectomy prior to [facility] but got delayed. Has not seen [facility] in the past 6 months. Reports taking vitamin-D supplements and lisinopril for blood pressure. Reports constipation and that she is not passing gas. 04/22-patient seen and examined. IV zoledronic acid 4 mg once ordered. Continue IV fluids. Parathyroid scan ordered. Nephrostomy tube draining 600 cc of orange tinged urine. Objective vital signs Vital Sign Date Time Temp Pulse Resp B/P (MAP) Pulse Ox O2 Delivery O2 Flow Rate FiO2 04/22/25 09:30 98.9 106 16 127/68 (87) 92 98.9 04/22/25 08:00 Nasal Cannula* 2 28 Total Intake and Output 04/21/25 04/21/25 04/22/25 15:00 23:00 07:00 Intake Total 1167 ml 67 ml 1725 ml Balance 1167 ml 67 ml 1725 ml medications Current Medications Medications Dose Ordered Sig/Feroz Route Start Time Stop Time Status Last Admin Dose Admin Acetaminophen 650 mg Q6HP PRN PO 04/20/25 23:45 04/21/25 07:51 650 MG Sodium Chloride 1,000 ml @ 125 mls/hr Q8H IV 04/21/25 01:15 04/22/25 09:03 125 MLS/HR Diagnostic Test (Pha) 1 strip ACHS 04/21/25 07:00 04/22/25 11:30 1 STRIP Insulin Human Regular HS SC 04/21/25 22:00 04/21/25 21:54 4 UNITS Insulin Human Regular AC SC 04/21/25 07:00 04/22/25 12:16 3 UNITS Dextrose 50 ml UD PRN IV 04/21/25 01:15 Ondansetron HCl 4 mg Q6HPRN PRN IV 04/21/25 01:15 Enoxaparin Sodium 40 mg DAILY SC 04/21/25 10:00 04/22/25 09:03 40 MG Pantoprazole Sodium 40 mg DAILY IV 04/21/25 10:00 04/22/25 09:03 40 MG Vancomycin HCl 0 ml @ 0 mls/hr UD IV 04/21/25 04:00 Meropenem 50 ml @ 17 mls/hr Q8H IV 04/21/25 17:00 04/22/25 09:03 17 MLS/HR Vancomycin HCl 200 ml @ 200 mls/hr Q12H IV 04/22/25 11:00 04/22/25 13:06 200 MLS/HR Morphine Sulfate 2 mg Q6HPRN PRN IV 04/22/25 11:00 Polyethylene Glycol 17 gm DAILYPRN PRN PO 04/22/25 13:00 Examination Obese female patient lying in bed, no acute distress General: Obese, afebrile, palor, mucosae are moist Cardiovascular: Regular S1 and S2. No murmurs, gallops or rubs. No JVD elevation. No pedal edema Respiratory: Normal B/L air entry on nasal cannula supplementation, Clear lung sounds on auscultation Abdomen: Soft, nontender, nondistended, normoactive bowel sounds, no rebound tenderness, no organomegaly, no masses Genitourinary: Deferred MSK/skin: Mobilizes 4 limbs. Skin is dry and warm Neurological: No motor, no sensitive deficits, normal speech. Pupils are isocoric and reactive. Psych/Mental Status: A/Ox3 laboratory and microbiology Laboratory Tests 04/22/25 06:29 04/21/25 02:00 Test 04/22/25 06:29 Range/Units Serum Glucose 105 74-106 mg/dL Microbiology Date/Time Source Procedure Growth Status 04/21/25 14:37 Aspirate Gram Stain Pending Resulted 04/21/25 14:37 Aspirate Body Fluid Culture - Preliminary Resulted 04/21/25 12:14 Voided Urine Urine Culture - Preliminary Resulted 04/21/25 02:00 Blood Blood Culture - Preliminary NO GROWTH AFTER 24 HOURS OF INCUBATION. Resulted Labs and/or images reviewed: Labs reviewed by me, Image(s) reviewed by me Problem List/Assessment/Plan Problem List/Assessment/Plan Sepsis secondary to Complicated emphysematous pyelonephritis Right obstructing UPJ calculi Acute kidney injury, likely due to obstruction Moderate chronic hypercalcemia secondary to likely likely parathyroid adenoma ? Parathyroid adenoma Diabetes mellitus type 2-A1c 8.0 Hypertension Plan: Patient likely has chronic hypercalcemia from primary hyperparathyroidism bleeding to right renal stone, now infected, complicated pyelonephritis. Patient will benefit from outpatient ENT surgery referral and parathyroidectomy. Follow up with sestamibi scan, IV zoledronic 4 mg once ordered. Continue IV NS. FeNa 0.9% - pre renal Hold Lasix Patient will benefit from tablet Sensipar daily on discharge BUN/creatinine trending down. Continue IV antibiotics Monitor renal function and urine output Avoid lisinopril given hyperkalemia, thiazide diuretics or vitamin-D supplements given hypercalcemia Strict I&Os Follow up with urine protein/urine creatinine and FENA Plan discussed with patient in which all questions have been answered Case discussed with Dr. Ruiz Plan discussed with: Patient MEGHAN LIAO RESIDENT Apr 22, 2025 13:43
[2025-04-22] MEDS: POLYETHYLENE GLYCOL 17 GM PWDR PO ONE (13:53)
--- NOTE | 2025-04-22 14:00 | DVHPNRES ---
Progress Note Date Seen: Apr 22, 2025 Resident Creating Document: LINDA LOPEZ RESIDENT Medical Necessity Reason Pt with a Central, PICC or Fol: No Subjective Review of Systems 50-year-old female with a past medical history of anemia, anxiety, diabetes type 2, hypertension, kidney stones, TIA, parathyroid tumor, hyperlipidemia came to the emergency department with the complaints of lower abdominal pain for the past 2 days. Patient reported that the pain started in the epigastric region that radiated down words to both the lower right and left quadrant and then went backwards to her flanks. She rates the pain as 10/10 in intensity, sharp and she tried cocaine patches which helped a bit. She said it was associated with nausea and drinking cold water helped a little but it was aggravated on movement. She also complains that she had fever of 102, loss of appetite and headache. She had no vomiting episodes. On inquiry patient denies any burning micturition or increased in frequency. Patient uses walker to ambulate due to diabetic neuropathy. She denies any chest pain, shortness of breath, cough or change in bowel movements. Patient also reports that she had been to the PCP Recently and was prescribed antibiotics for her UTI. PMH: Iron deficiency anemia, anxiety, DM, hypertension, kidney stones, hyperparathyroidism, TIA PSH: Bilateral tubal ligation, 5 times, fibroids of the uterus that has been removed in 2021 Family history: Reviewed and noncontributory to this case Social history: Patient lives at home with the and kids, has never smoked denies using alcohol or any other drugs now or in the past Allergies: None ROS: Patient was seen and examined by me today at the bedside. Overnight events reviewed. yesterday percutaneous nephrostomy tube was placed her right flank by the IR team after being consulted by Nephrology. Patient reports of discomfort where the nephrostomy tube is placed and I could not observe 500 mL of straw-colored fluid drained into a bag. Patient still complains of pain in her epigastric, flanks bilaterally, and right and left lower quadrants But says she is a little better. patient also reports that she has had not passed stool in the past 4 days. Rest of the ROS is negative. Objective vital signs Vital Sign Date Time Temp Pulse Resp B/P (MAP) Pulse Ox O2 Delivery O2 Flow Rate FiO2 04/22/25 09:30 98.9 106 16 127/68 (87) 92 98.9 04/22/25 08:00 Nasal Cannula* 2 28 Total Intake and Output 04/21/25 04/21/25 04/22/25 15:00 23:00 07:00 Intake Total 1167 ml 67 ml 1725 ml Balance 1167 ml 67 ml 1725 ml medications Current Medications Medications Dose Ordered Sig/Feroz Route Start Time Stop Time Status Last Admin Dose Admin Acetaminophen 650 mg Q6HP PRN PO 04/20/25 23:45 04/21/25 07:51 650 MG Sodium Chloride 1,000 ml @ 125 mls/hr Q8H IV 04/21/25 01:15 04/22/25 09:03 125 MLS/HR Diagnostic Test (Pha) 1 strip ACHS 04/21/25 07:00 04/22/25 11:30 1 STRIP Insulin Human Regular HS SC 04/21/25 22:00 04/21/25 21:54 4 UNITS Insulin Human Regular AC SC 04/21/25 07:00 04/22/25 12:16 3 UNITS Dextrose 50 ml UD PRN IV 04/21/25 01:15 Ondansetron HCl 4 mg Q6HPRN PRN IV 04/21/25 01:15 Enoxaparin Sodium 40 mg DAILY SC 04/21/25 10:00 04/22/25 09:03 40 MG Pantoprazole Sodium 40 mg DAILY IV 04/21/25 10:00 04/22/25 09:03 40 MG Vancomycin HCl 0 ml @ 0 mls/hr UD IV 04/21/25 04:00 Meropenem 50 ml @ 17 mls/hr Q8H IV 04/21/25 17:00 04/22/25 09:03 17 MLS/HR Vancomycin HCl 200 ml @ 200 mls/hr Q12H IV 04/22/25 11:00 04/22/25 13:06 200 MLS/HR Morphine Sulfate 2 mg Q6HPRN PRN IV 04/22/25 11:00 Polyethylene Glycol 17 gm DAILYPRN PRN PO 04/22/25 13:00 Patient Own Medication 1 BID PO 04/22/25 22:00 UNV Examination Pt is lying on bed General Appearance: Alert, Oriented X3, Cooperative, mild distress HEENT: Atraumatic, Mucous membranes moist/pink Respiratory: Clear to auscultation, Normal air movement, No added sounds Cardiovascular: Regular rate, Normal S1, Normal S2, No murmurs Abdominal: Active bowel sounds, Soft, tenderness in both flanks, suprapubic region and right and left lower quadrant as well as epigastric region/. placement of a nephrostomy tube on the right flank with no blood in the tube and 500 mL of fluid drained in the bag Extremities: No edema, Normal pulses, No tenderness/swelling Skin: No Significant rash, except past surgical scars Neuro: Normal speech, sensorimotor deficits none Psych/Mental Status: Mental status NL, Mood NL Nurse was there as credit review analyst during examination laboratory and microbiology Laboratory Tests 04/22/25 06:29 04/21/25 02:00 Test 04/22/25 06:29 Range/Units Serum Glucose 105 74-106 mg/dL Microbiology Date/Time Source Procedure Growth Status 04/21/25 14:37 Aspirate Gram Stain Pending Resulted 04/21/25 14:37 Aspirate Body Fluid Culture - Preliminary Resulted 04/21/25 12:14 Voided Urine Urine Culture - Preliminary Resulted 04/21/25 02:00 Blood Blood Culture - Preliminary NO GROWTH AFTER 24 HOURS OF INCUBATION. Resulted Labs and/or images reviewed: Labs reviewed by me, Image(s) reviewed by me (rn) Problem List/Assessment/Plan Problem List/Assessment/Plan # Sepsis likely secondary to UTI/? pyelonephritis # Emphysematous Pyelonephritis right kidney # Obstructive right kidney nephrolithiasis # G + Bacteremia , repeat cultures ordered -CT abdomen pelvis without contrast: Air noted within the right renal pelvis. An irregular, slightly elongated calculus in the proximal right ureter at the ureteropelvic junction measures approximately 9 mm in length and 4 mm axially. This may also represent 2 separate adjacent calculi. There is moderate right hydronephrosis. -Ultrasound gallbladder: No gallstones or acute cholecystitis; Common bile duct not visualized. Hepatomegaly and hepatic steatosis. Nonobstructive right intrarenal calculi. -IVF -Urine culture, blood culture, pending -Ondansetron 4 mg q.6 p.r.n. -Zosyn IV switch to IV meropenem and vancomycin -Urology consult seen and advised to consult IR for right PCN placement and outpatient lithotripsy TBA after resolution of infection - IR consult performed status post placement of 8.5 [place] right percutaneous nephrostomy catheter yesterday, patient tolerated procedure well # Hypercalcemia likely from primary hyperparathyroidism likely from parathyroid adenoma -Calcium level 13.0 -> 12.6-->13.2 -Vitamin-D level -Serum phosphorous level -PTH - 500 mL bolus normal saline - given 1 dose of Lasix -Nephrology consult -patient need parathyroidectomy as soon as possible on outpatient basis -monitor lab -started on cinacalcet -ordered NM scan # hepatomegaly and hepatic steatosis - As seen in Ct abd/pel - Ultrasound gallbladder: No gallstones or acute cholecystitis. - Common bile duct not visualized. Hepatomegaly and hepatic steatosis. # Essential hypertension -Hold home medication lisinopril 20 mg due to low BP -Monitor blood pressure # Hyperlipidemia -Home medication rosuvastatin 10 mg, fenofibrate 48 mg # Anemia of chronic disease -FeSO4-home meds # Vertigo -Meclizine 10 mg p.o. # Type 2 diabetes mellitus with hyperglycemia -Accuchecks -Start insulin sliding dose Diet: Clear liquid diet GI prophylaxis: Pantoprazole 40 mg daily DVT prophylaxis: Lovenox 40 40 mg sc daily Goals of care discussed with the patient for more than 27 minutes: Full code status Case discussed with Dr. Andrew, patient and nurse Plan discussed with: Patient My Orders My Orders Orders - LINDA LOPEZ Procedure Category Date Status Time Polyethylene Glycol PHA 04/22/25 In Process 17g Powder (Miralax 13:00 Date of Service: Apr 22, 2025 Billing Provider: TIMBO ANDREW MD Common Visit Codes: [id number] INP/OBS CARE(HIGH) LINDA LOPEZ Apr 22, 2025 14:00 TIMBO ANDREW MD Apr 22, 2025 18:01
[2025-04-22] MEDS ORDERED: MORPHINE SULFATE INJ 2 MG/ml SYRG IV PRN (14:15)
[2025-04-22] MEDS: MORPHINE SULFATE INJ 2 MG/ml SYRG IV PRN (15:17)
[2025-04-22] MEDS: LIDOCAINE 5% TOPICAL PATCH TOP ONE (16:24)
[2025-04-22] MEDS: SENSIPAR 30 MG PO SCH (21:28)
[2025-04-23 05:29] VITALS: BP_SYST 79; PULSE 97; RESP 17; TEMP 98.2; O2SAT 95
[2025-04-23 09:00] VITALS: BP 132/75; PULSE 101; RESP 18; TEMP 98.6; O2SAT 97
[2025-04-23 09:21] LABS: Alanine Aminotransferase 17 U/L (7-40); Albumin 3.7 g/dL (3.2-4.8); Alkaline Phosphatase 75 U/L (46-116); Anion Gap 12 (5-15); BUN/Creatinine Ratio 28.3 (10.0-20.0); Blood Urea Nitrogen 13 mg/dL (9-23); Glucose 104 mg/dL (74-106); Potassium 4.0 mmol/L (3.5-5.1); Sodium 139 mmol/L (136-145); Total Protein 6.3 g/dL (5.7-8.2)
[2025-04-23 09:22] LABS: Bilirubin, Total 0.3 mg/dL (0.2-1.0); Calcium 12.6 mg/dL (8.7-10.4); Carbon Dioxide 20 mmol/L (20-31); Chloride 107 mmol/L (98-107)
--- NOTE | 2025-04-23 10:31 | MEDREC ---
DVH ASP Intervention Section I DVH ASP Intervention: Deescalate AB based on CS TRUPTI [facility] RESIDENT Apr 23, 2025 10:31
--- NOTE | 2025-04-23 11:31 | DVH ---
EXAM: XY CHEST PORTABLE Indication: sob Technique: Single frontal view of the chest was obtained Comparison: XY CHEST XRAY 1 VIEW on DOS: 04/21/25, CHEST PORTABLE on DOS: 10/21/21, CHEST PORTABLE on D OS: 10/20/21, CHEST PORTABLE on DOS: 10/19/21, CHEST XRAY 1 VIEW on DOS: 10/18/21 FINDINGS: Lines and Tubes: None Lungs: No focal consolidation. Pleura: No effusion. No pneumothorax. Cardiomediastinal contours: Unremarkable Bones: No acute osseous abnormality. IMPRESSION: No acute cardiopulmonary disease.
[2025-04-23] MEDS: LIDOCAINE 5% TOPICAL PATCH TOP SCH (12:30)
[2025-04-23] MEDS: BISACODYL 5 MG EC TAB PO ONE (12:57)
[2025-04-23] MEDS: LACTULOSE 20Gm/30ML SOLN PO ONE (12:57)
[2025-04-23 13:00] VITALS: BP 139/75; PULSE 94; RESP 18; TEMP 98.6; O2SAT 94
--- NOTE | 2025-04-23 13:23 | DVHPN2 ---
Progress Note Date Seen: Apr 23, 2025 Resident Creating Document: MEGHAN LIAO RESIDENT Medical Necessity Reason Pt with a Central, PICC or Fol: No Subjective Review of Systems This is a 50-year-old female with past medical history of Anemia, Anxiety, DM2, HTN, Kidney Stones, TIA, Parathyroid tumor, HLD came to ED with the complain of lower abdominal pain for 2 days which is worsen today, 10/10 intensity, localized, sharp pain, tried lidocaine patch and cold water which helps a little, aggravated on movement or deep palpation associated with nausea, fever, loss of appetite, headache. Patient use walker during ambulation due to diabetic neuropathy. Patient daughter Komal with patient during encounter stated patient visited recently with her primary care last week and treated UTI with po antibiotic. Never seen by GI spl, never done endoscopy or colonoscopy. Denies any chest pain, SOB, headache, cough, vomiting, nausea, diarrhea. Nephrology consulted for hypercalcemia 04/21-Patient seen and examined at the bedside. Follows glove parts cutter Dr. Cabello. Patient was scheduled for parathyroidectomy prior to [facility] but got delayed. Has not seen glove parts cutter in the past 6 months. Reports taking vitamin-D supplements and lisinopril for blood pressure. Reports constipation and that she is not passing gas. 04/22-patient seen and examined. IV zoledronic acid 4 mg once ordered. Continue IV fluids. Parathyroid scan ordered. Nephrostomy tube draining 600 cc of orange tinged urine. 04/23- Ca 12.6, cinacalcet pending by pharmacy. 2000 cc urine in 24 hours. Objective vital signs Vital Sign Date Time Temp Pulse Resp B/P (MAP) Pulse Ox O2 Delivery O2 Flow Rate FiO2 04/23/25 12:58 98 18 132/75 04/23/25 09:00 98.6 97 98.6 04/22/25 20:00 Nasal Cannula* 2 28 Total Intake and Output 04/22/25 04/22/25 04/23/25 15:00 23:00 07:00 Intake Total 700 ml 700 ml Output Total 825 ml 1575 ml Balance -125 ml -875 ml medications Current Medications Medications Dose Ordered Sig/Feroz Route Start Time Stop Time Status Last Admin Dose Admin Acetaminophen 650 mg Q6HP PRN PO 04/20/25 23:45 04/22/25 18:40 650 MG Sodium Chloride 1,000 ml @ 125 mls/hr Q8H IV 04/21/25 01:15 04/23/25 01:17 125 MLS/HR Diagnostic Test (Pha) 1 strip ACHS 04/21/25 07:00 04/23/25 11:30 1 STRIP Insulin Human Regular HS SC 04/21/25 22:00 04/22/25 21:26 3 UNITS Insulin Human Regular AC SC 04/21/25 07:00 04/23/25 13:09 2 UNITS Dextrose 50 ml UD PRN IV 04/21/25 01:15 Ondansetron HCl 4 mg Q6HPRN PRN IV 04/21/25 01:15 Enoxaparin Sodium 40 mg DAILY SC 04/21/25 10:00 04/23/25 12:30 40 MG Pantoprazole Sodium 40 mg DAILY IV 04/21/25 10:00 04/23/25 12:30 40 MG Meropenem 50 ml @ 17 mls/hr Q8H IV 04/21/25 17:00 04/23/25 12:30 17 MLS/HR Morphine Sulfate 2 mg Q6HPRN PRN IV 04/22/25 11:00 04/23/25 12:58 2 MG Polyethylene Glycol 17 gm DAILYPRN PRN PO 04/22/25 13:00 Patient Own Medication 1 BID PO 04/22/25 22:00 Morphine Sulfate 1 mg Q4HP PRN IV 04/22/25 14:15 Lidocaine 1 patch DAILY TOP 04/23/25 10:00 04/23/25 12:30 1 PATCH Examination Obese female patient lying in bed, no acute distress General: Obese, afebrile, palor, mucosae are moist Cardiovascular: Regular S1 and S2. No murmurs, gallops or rubs. No JVD elevation. No pedal edema Respiratory: Normal B/L air entry on nasal cannula supplementation, Clear lung sounds on auscultation Abdomen: Soft, nontender, nondistended, normoactive bowel sounds, no rebound tenderness, no organomegaly, no masses Genitourinary: Deferred MSK/skin: Mobilizes 4 limbs. Skin is dry and warm Neurological: No motor, no sensitive deficits, normal speech. Pupils are isocoric and reactive. Psych/Mental Status: A/Ox3 laboratory and microbiology Laboratory Tests 04/23/25 06:18 04/21/25 02:00 Test 04/23/25 06:18 Range/Units Serum Glucose 104 74-106 mg/dL Microbiology Date/Time Source Procedure Growth Status 04/22/25 09:00 Blood Blood Culture - Preliminary NO GROWTH AFTER 24 HOURS OF INCUBATION. Resulted 04/21/25 14:37 Aspirate Gram Stain - Final Complete 04/21/25 14:37 Body Fluid Culture - Final Klebsiella pneumoniae Complete 04/21/25 12:14 Voided Urine Urine Culture - Final Klebsiella pneumoniae Complete Labs and/or images reviewed: Labs reviewed by me, Image(s) reviewed by me Problem List/Assessment/Plan Problem List/Assessment/Plan Sepsis secondary to Complicated emphysematous pyelonephritis Right obstructing UPJ calculi Acute kidney injury, likely due to obstruction Moderate chronic hypercalcemia secondary to likely likely parathyroid adenoma ? Parathyroid adenoma Diabetes mellitus type 2-A1c 8.0 Hypertension Cultures growing Klebsiella Plan: Patient likely has chronic hypercalcemia from primary hyperparathyroidism leading to right renal stone, now infected, complicated pyelonephritis. Patient will benefit from outpatient ENT surgery referral and parathyroidectomy. Follow up with sestamibi scan, Continue IV NS. IV zoledronic 4 mg once ordered yesterday, takes around 24-48 hrs for onset. Consider repeating dose tomorrow if Ca remains high>12 FeNa 0.9% - pre renal Hold Lasix Patient will benefit from tablet Sensipar daily on discharge BUN/creatinine trending down. Continue IV antibiotics Monitor renal function and urine output Avoid lisinopril given hyperkalemia, thiazide diuretics or vitamin-D supplements given hypercalcemia Strict I&Os Plan discussed with patient in which all questions have been answered Case discussed with Dr. Ruiz Plan discussed with: Patient, Daughter My Orders My Orders Orders - MEGHAN LIAO Procedure Category Date Status Time Patients Own PHA 04/22/25 In Process Medication 22:00 MEGHAN LIAO Apr 23, 2025 13:23
--- NOTE | 2025-04-23 15:27 | DVH ---
EXAM: NM PARATHYROID DATE OF SERVICE: 04/23/2025 09:10 AM LINDA LOPEZ REASON FOR EXAM: hyperparathyroidism adenoma TECHNIQUE: Following the intravenous administration of 23.0 mCi of Tc-99m Sestamibi, planar images a t 15 minutes and 2 hours were obtained from the vertex to the chest. COMPARISON: None FINDINGS: 15 minutes post injection, the thyroid gland demonstrates diffuse, homogeneous uptake. 2 hours post injection, there is complete washout of radiotracer from the thyroid gland. No focal res idual uptake to suggest a parathyroid adenoma. IMPRESSION: 1. Normal exam. No scintigraphic evidence of a parathyroid adenoma.
[2025-04-23 17:00] VITALS: BP 155/87; PULSE 102; RESP 18; TEMP 98.4; O2SAT 93
[2025-04-23] MEDS: cefTRIAXone 1GM/50ML D5W 50 ML IV ONE (17:06)
--- NOTE | 2025-04-23 17:09 | DVHPNRES ---
Progress Note Date Seen: Apr 23, 2025 Resident Creating Document: LINDA LOPEZ RESIDENT Medical Necessity Reason Pt with a Central, PICC or Fol: No Subjective Review of Systems 50-year-old female with a past medical history of anemia, anxiety, diabetes type 2, hypertension, kidney stones, TIA, parathyroid tumor, hyperlipidemia came to the emergency department with the complaints of lower abdominal pain for the past 2 days. Patient reported that the pain started in the epigastric region that radiated down words to both the lower right and left quadrant and then went backwards to her flanks. She rates the pain as 10/10 in intensity, sharp and she tried cocaine patches which helped a bit. She said it was associated with nausea and drinking cold water helped a little but it was aggravated on movement. She also complains that she had fever of 102, loss of appetite and headache. She had no vomiting episodes. On inquiry patient denies any burning micturition or increased in frequency. Patient uses walker to ambulate due to diabetic neuropathy. She denies any chest pain, shortness of breath, cough or change in bowel movements. Patient also reports that she had been to the PCP Recently and was prescribed antibiotics for her UTI. PMH: Iron deficiency anemia, anxiety, DM, hypertension, kidney stones, hyperparathyroidism, TIA PSH: Bilateral tubal ligation, 5 times, fibroids of the uterus that has been removed in 2021 Family history: Reviewed and noncontributory to this case Social history: Patient lives at home with the and kids, has never smoked denies using alcohol or any other drugs now or in the past Allergies: None ROS: Patient was seen and examined by me today at the bedside. Overnight events reviewed. yesterday percutaneous nephrostomy tube was placed her right flank by the IR team after being consulted by Nephrology. Patient reports of discomfort where the nephrostomy tube is placed and I could not observe 500 mL of straw-colored fluid drained into a bag. Patient still complains of pain in her epigastric, flanks bilaterally, and right and left lower quadrants But says she is a little better. patient also reports that she has had not passed stool in the past 4 days. Rest of the ROS is negative. Objective vital signs Vital Sign Date Time Temp Pulse Resp B/P (MAP) Pulse Ox O2 Delivery O2 Flow Rate FiO2 04/23/25 17:00 98.4 102 18 155/87 (109) 93 98.4 04/23/25 08:10 Nasal Cannula* 2 28 Total Intake and Output 04/22/25 04/22/25 04/23/25 15:00 23:00 07:00 Intake Total 700 ml 700 ml Output Total 825 ml 1575 ml Balance -125 ml -875 ml medications Current Medications Medications Dose Ordered Sig/Feroz Route Start Time Stop Time Status Last Admin Dose Admin Acetaminophen 650 mg Q6HP PRN PO 04/20/25 23:45 04/22/25 18:40 650 MG Sodium Chloride 1,000 ml @ 125 mls/hr Q8H IV 04/21/25 01:15 04/23/25 01:17 125 MLS/HR Diagnostic Test (Pha) 1 strip ACHS 04/21/25 07:00 04/23/25 11:30 1 STRIP Insulin Human Regular HS SC 04/21/25 22:00 04/22/25 21:26 3 UNITS Insulin Human Regular AC SC 04/21/25 07:00 04/23/25 13:09 2 UNITS Dextrose 50 ml UD PRN IV 04/21/25 01:15 Ondansetron HCl 4 mg Q6HPRN PRN IV 04/21/25 01:15 Enoxaparin Sodium 40 mg DAILY SC 04/21/25 10:00 04/23/25 12:30 40 MG Pantoprazole Sodium 40 mg DAILY IV 04/21/25 10:00 04/23/25 12:30 40 MG Morphine Sulfate 2 mg Q6HPRN PRN IV 04/22/25 11:00 04/23/25 12:58 2 MG Polyethylene Glycol 17 gm DAILYPRN PRN PO 04/22/25 13:00 Patient Own Medication 1 BID PO 04/22/25 22:00 04/23/25 10:00 1 Morphine Sulfate 1 mg Q4HP PRN IV 04/22/25 14:15 Lidocaine 1 patch DAILY TOP 04/23/25 10:00 04/23/25 12:30 1 PATCH Ceftriaxone Sodium 50 ml @ 100 mls/hr DAILY@09 IV 04/24/25 09:00 Examination Pt is lying on bed General Appearance: Alert, Oriented X3, Cooperative, mild distress HEENT: Atraumatic, Mucous membranes moist/pink Respiratory: Clear to auscultation, Normal air movement, No added sounds Cardiovascular: Regular rate, Normal S1, Normal S2, No murmurs Abdominal: Active bowel sounds, Soft, mild tenderness in both flanks, suprapubic region and right and left lower quadrant as well as epigastric region. Placement of a nephrostomy tube on the right flank with no blood in the tube and 400 mL of fluid drained in the bag Extremities: No edema, Normal pulses, No tenderness/swelling Skin: No Significant rash, except past surgical scars Neuro: Normal speech, sensorimotor deficits none Psych/Mental Status: Mental status NL, Mood NL Nurse was there as walnut dehydrator operator during examination laboratory and microbiology Laboratory Tests 04/23/25 06:18 04/21/25 02:00 Test 04/23/25 06:18 Range/Units Serum Glucose 104 74-106 mg/dL Microbiology Date/Time Source Procedure Growth Status 04/22/25 09:00 Blood Blood Culture - Preliminary NO GROWTH AFTER 24 HOURS OF INCUBATION. Resulted 04/21/25 14:37 Aspirate Gram Stain - Final Complete 04/21/25 14:37 Body Fluid Culture - Final Klebsiella pneumoniae Complete 04/21/25 12:14 Voided Urine Urine Culture - Final Klebsiella pneumoniae Complete Labs and/or images reviewed: Labs reviewed by me, Image(s) reviewed by me Problem List/Assessment/Plan Problem List/Assessment/Plan # Sepsis likely secondary to UTI/? pyelonephritis # Emphysematous Pyelonephritis right kidney # Obstructive right kidney nephrolithiasis # G + Bacteremia , repeat cultures ordered -CT abdomen pelvis without contrast: Air noted within the right renal pelvis. An irregular, slightly elongated calculus in the proximal right ureter at the ureteropelvic junction measures approximately 9 mm in length and 4 mm axially. This may also represent 2 separate adjacent calculi. There is moderate right hydronephrosis. -Ultrasound gallbladder: No gallstones or acute cholecystitis; Common bile duct not visualized. Hepatomegaly and hepatic steatosis. Nonobstructive right intrarenal calculi. -IVF -Urine culture, blood culture, pending -Ondansetron 4 mg q.6 p.r.n. -Zosyn IV switch to IV meropenem and vancomycin -Vancomycin stopped today and meropenem changed to ceftriaxone -Urology consult seen and advised to consult IR for right PCN placement and outpatient lithotripsy TBA after resolution of infection - IR consult performed status post placement of 8.5 Congolese right percutaneous nephrostomy catheter yesterday, patient tolerated procedure well # Hypercalcemia likely from primary hyperparathyroidism likely from parathyroid adenoma -Calcium level 13.0 -> 12.6-->13.2 -Vitamin-D level -Serum phosphorous level -PTH - 500 mL bolus normal saline - given 1 dose of Lasix -Nephrology consult, recommendations below -patient needs parathyroidectomy as soon as possible on outpatient basis -monitor lab -started on cinacalcet and zoledronic acid -ordered NM scan shows: Normal exam. No scintigraphic evidence of a parathyroid adenoma. # hepatomegaly and hepatic steatosis - As seen in Ct abd/pel - Ultrasound gallbladder: No gallstones or acute cholecystitis. - Common bile duct not visualized. Hepatomegaly and hepatic steatosis. # Essential hypertension -Hold home medication lisinopril 20 mg due to low BP -Monitor blood pressure # Hyperlipidemia -Home medication rosuvastatin 10 mg, fenofibrate 48 mg # Anemia of chronic disease -FeSO4-home meds # Vertigo -Meclizine 10 mg p.o. # Type 2 diabetes mellitus with hyperglycemia -Accuchecks -Start insulin sliding dose Diet: soft diet GI prophylaxis: Pantoprazole 40 mg daily DVT prophylaxis: Lovenox 40 40 mg sc daily Goals of care discussed with the patient for more than 27 minutes: Full code status Case discussed with Dr. Andrew, patient and nurse Plan discussed with: Patient, Other (rn) My Orders My Orders Orders - LINDA LOPEZ Procedure Category Date Status Time Soft Diet DIET 04/23/25 Transmitted Lunch Date of Service: Apr 23, 2025 Billing Provider: TIMBO ANDREW MD Common Visit Codes: [id number] INP/OBS CARE(HIGH) LINDA LOPEZ Apr 23, 2025 17:09 TIMBO ANDREW MD Apr 23, 2025 23:34
[2025-04-23 19:50] VITALS: O2SAT 95
[2025-04-23 21:00] VITALS: BP 135/70; PULSE 94; RESP 18; TEMP 98.6; O2SAT 96
[2025-04-24 01:00] VITALS: BP 146/76; PULSE 94; RESP 21; TEMP 97.9; O2SAT 95
[2025-04-24 07:02] LABS: Hematocrit 38.5 % (36.0-46.0); Hemoglobin 13.1 g/dL (12.2-16.2); Mean Corpuscular Hemoglobin 29.9 pg (28.0-32.0); Mean Corpuscular Volume 87.5 fL (80.0-100.0); Nucleated Red Blood Cells % 0.1 %
[2025-04-24 07:14] LABS: Chloride 106 mmol/L (98-107); Potassium 3.6 mmol/L (3.5-5.1); Sodium 140 mmol/L (136-145)
[2025-04-24 07:15] LABS: Anion Gap 13 (5-15); Carbon Dioxide 21 mmol/L (20-31)
[2025-04-24 07:18] LABS: Calcium 11.5 mg/dL (8.7-10.4)
[2025-04-24 07:21] LABS: BUN/Creatinine Ratio 25.0 (10.0-20.0); Blood Urea Nitrogen 11 mg/dL (9-23); Glucose 111 mg/dL (74-106)
[2025-04-24 08:20] VITALS: O2SAT 95
[2025-04-24] MEDS: POTASSIUM EFFERVESENT TAB 25 MEQ PO ONE (08:41)
[2025-04-24] MEDS: cefTRIAXone 1GM/50ML D5W 50 ML IV SCH (08:47)
[2025-04-24 09:00] VITALS: BP 133/77; PULSE 98; RESP 17; TEMP 98.3; O2SAT 96
--- NOTE | 2025-04-24 11:03 | DVHPN2 ---
Progress Note Date Seen: Apr 24, 2025 Resident Creating Document: MEGHAN LIAO RESIDENT Medical Necessity Reason Pt with a Central, PICC or Fol: No Subjective Review of Systems This is a 50-year-old female with past medical history of Anemia, Anxiety, DM2, HTN, Kidney Stones, TIA, Parathyroid tumor, HLD came to ED with the complain of lower abdominal pain for 2 days which is worsen today, 10/10 intensity, localized, sharp pain, tried lidocaine patch and cold water which helps a little, aggravated on movement or deep palpation associated with nausea, fever, loss of appetite, headache. Patient use walker during ambulation due to diabetic neuropathy. Patient daughter Komal with patient during encounter stated patient visited recently with her primary care last week and treated UTI with po antibiotic. Never seen by GI spl, never done endoscopy or colonoscopy. Denies any chest pain, SOB, headache, cough, vomiting, nausea, diarrhea. Nephrology consulted for hypercalcemia 04/21-Patient seen and examined at the bedside. Follows certification officer Dr. Cabello. Patient was scheduled for parathyroidectomy prior to [facility] but got delayed. Has not seen certification officer in the past 6 months. Reports taking vitamin-D supplements and lisinopril for blood pressure. Reports constipation and that she is not passing gas. 04/22-patient seen and examined. IV zoledronic acid 4 mg once ordered. Continue IV fluids. Parathyroid scan ordered. Nephrostomy tube draining 600 cc of orange tinged urine. 04/23- Ca 12.6, cinacalcet pending by pharmacy. 2000 cc urine in 24 hours. 04/24-patient reports feeling better, calcium trending down. Urine output increasing. Objective vital signs Vital Sign Date Time Temp Pulse Resp B/P (MAP) Pulse Ox O2 Delivery O2 Flow Rate FiO2 04/24/25 09:56 98 17 133/77 04/24/25 01:00 97.9 95 97.9 04/23/25 19:50 Room Air* 0 21 Total Intake and Output 04/23/25 04/23/25 04/24/25 15:00 23:00 07:00 Intake Total 700 ml 1400 ml Output Total 1700 ml 1750 ml Balance -1000 ml -350 ml medications Current Medications Medications Dose Ordered Sig/Feroz Route Start Time Stop Time Status Last Admin Dose Admin Acetaminophen 650 mg Q6HP PRN PO 04/20/25 23:45 04/22/25 18:40 650 MG Sodium Chloride 1,000 ml @ 125 mls/hr Q8H IV 04/21/25 01:15 04/24/25 02:00 125 MLS/HR Diagnostic Test (Pha) 1 strip ACHS 04/21/25 07:00 04/24/25 05:48 1 STRIP Insulin Human Regular HS SC 04/21/25 22:00 04/23/25 21:16 2 UNITS Insulin Human Regular AC SC 04/21/25 07:00 04/23/25 17:11 2 UNITS Dextrose 50 ml UD PRN IV 04/21/25 01:15 Ondansetron HCl 4 mg Q6HPRN PRN IV 04/21/25 01:15 Enoxaparin Sodium 40 mg DAILY SC 04/21/25 10:00 04/24/25 08:46 40 MG Pantoprazole Sodium 40 mg DAILY IV 04/21/25 10:00 04/24/25 08:45 40 MG Morphine Sulfate 2 mg Q6HPRN PRN IV 04/22/25 11:00 04/24/25 09:56 2 MG Polyethylene Glycol 17 gm DAILYPRN PRN PO 04/22/25 13:00 Patient Own Medication 1 BID PO 04/22/25 22:00 04/24/25 08:43 1 Morphine Sulfate 1 mg Q4HP PRN IV 04/22/25 14:15 Lidocaine 1 patch DAILY TOP 04/23/25 10:00 04/24/25 08:44 1 PATCH Ceftriaxone Sodium 50 ml @ 100 mls/hr DAILY@09 IV 04/24/25 09:00 04/24/25 08:47 100 MLS/HR Examination Obese female patient lying in bed, no acute distress General: Obese, afebrile, palor, mucosae are moist Cardiovascular: Regular S1 and S2. No murmurs, gallops or rubs. No JVD elevation. No pedal edema Respiratory: Normal B/L air entry on room air, Clear lung sounds on auscultation Abdomen: Soft, nontender, nondistended, normoactive bowel sounds, no rebound tenderness, no organomegaly, no masses Genitourinary: Deferred MSK/skin: Mobilizes 4 limbs. Skin is dry and warm Neurological: No motor, no sensitive deficits, normal speech. Pupils are isocoric and reactive. Psych/Mental Status: A/Ox3 laboratory and microbiology Laboratory Tests 04/24/25 06:15 Test 04/24/25 06:15 Range/Units Serum Glucose 111 H 74-106 mg/dL Microbiology Date/Time Source Procedure Growth Status 04/22/25 09:00 Blood Blood Culture - Preliminary NO GROWTH AFTER 48 HOURS OF INCUBATION. Resulted 04/21/25 14:37 Aspirate Gram Stain - Final Complete 04/21/25 14:37 Body Fluid Culture - Final Klebsiella pneumoniae Complete 04/21/25 12:14 Voided Urine Urine Culture - Final Klebsiella pneumoniae Complete Labs and/or images reviewed: Labs reviewed by me, Image(s) reviewed by me Problem List/Assessment/Plan Problem List/Assessment/Plan Sepsis secondary to Complicated emphysematous pyelonephritis Right obstructing UPJ calculi Acute kidney injury, likely due to obstruction Moderate chronic hypercalcemia secondary to likely likely parathyroid adenoma ? Parathyroid adenoma Diabetes mellitus type 2-A1c 8.0 Hypertension Cultures growing Klebsiella Plan: Patient likely has chronic hypercalcemia from primary hyperparathyroidism leading to right renal stone, now infected, complicated pyelonephritis. Patient will benefit from outpatient ENT surgery referral and parathyroidectomy. 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 Continue IV NS. IV zoledronic 4 mg once ordered yesterday, takes around 24-48 hrs for onset. Tablet Sensipar 30 mg b.i.d., continue on discharge FeNa 0.9% - pre renal Hold Lasix and vitamin-D BUN/creatinine trending down. Continue IV antibiotics Monitor renal function and urine output Avoid lisinopril given hyperkalemia, thiazide diuretics or vitamin-D supplements given hypercalcemia Strict I&Os Plan discussed with patient in which all questions have been answered Case discussed with Dr. Ruiz Plan discussed with: Patient Dietary Evaluation Review Comments: 1) Glucerna 240ml BID 2) Consider CCHO60 + cardiac soft diet if PO >50% 3) Refer Blender Helper for diabetes education Expected Outcomes/Goals: To meet >75% estimated needs Fu 3-5 days MEGHAN LIAO RESIDENT Apr 24, 2025 11:03
[2025-04-24] MEDS ORDERED: CEPH250C PO (12:44)
[2025-04-24 13:00] VITALS: BP 147/73; PULSE 101; RESP 17; TEMP 96.9; O2SAT 98
--- NOTE | 2025-04-24 15:38 | DVHDSRES ---
Discharge Summary Date of Admission Resident Creating Document: LINDA LOPEZ RESIDENT Apr 20, 2025 at 23:34 Date of Discharge: Apr 24, 2025 Admitting Diagnosis # Sepsis likely secondary to UTI/? pyelonephritis Labs/Diagnostic Data: Laboratory Results Test 04/24/25 12:11 04/24/25 06:15 04/23/25 06:18 04/22/25 06:29 POC Glucose 152 mg/dl (70-106) White Blood Count 7.5 10^3/uL (4.4-10.8) Red Blood Count 4.40 10^6/uL (4.0-5.20) Hemoglobin 13.1 g/dL (12.2-16.2) Hematocrit 38.5 % (36.0-46.0) Mean Corpuscular Volume 87.5 fL (80.0-100.0) Mean Corpuscular Hemoglobin 29.9 pg (28.0-32.0) Mean Corpuscular Hemoglobin Concent 34.2 g/dL (32.0-36.0) Red Cell Distribution Width 15.5 % (11.8-14.3) Platelet Count 312 10^3/uL (140-450) Mean Platelet Volume 7.1 fL (6.9-10.8) Neutrophils (%) (Auto) 74.8 % (37.0-80.0) Lymphocytes (%) (Auto) 15.7 % (10.0-50.0) Monocytes (%) (Auto) 7.3 % (0.0-12.0) Eosinophils (%) (Auto) 2.0 % (0.0-7.0) Basophils (%) (Auto) 0.2 % (0.0-2.0) Neutrophils # (Auto) 5.6 10 ^3/uL (1.6-8.6) Lymphocytes # (Auto) 1.2 10 ^3/uL (0.4-5.4) Monocytes # (Auto) 0.5 10 ^3/uL (0-1.3) Eosinophils # (Auto) 0.2 10 ^3/uL (0-0.8) Basophils # (Auto) 0 10 ^3/uL (0-0.2) Nucleated Red Blood Cells 0.1 % Sodium Level 140 mmol/L (136-145) Potassium Level 3.6 mmol/L (3.5-5.1) Chloride Level 106 mmol/L (98-107) Carbon Dioxide Level 21 mmol/L (20-31) Anion Gap 13 (5-15) Blood Urea Nitrogen 11 mg/dL (9-23) Creatinine 0.44 mg/dL (0.550-1.02) Glomerular Filtration Rate Calc 116 mL/min (>90) BUN/Creatinine Ratio 25.0 (10.0-20.0) Serum Glucose 111 mg/dL (74-106) Calcium Level 11.5 mg/dL (8.7-10.4) Total Bilirubin 0.3 mg/dL (0.2-1.0) Aspartate Amino Transferase (AST) 18 U/L (13-40) Alanine Aminotransferase (ALT) 17 U/L (7-40) Alkaline Phosphatase 75 U/L (46-116) Total Protein 6.3 g/dL (5.7-8.2) Albumin 3.7 g/dL (3.2-4.8) Random Vancomycin Level 3.8 ug/mL (5-10) Test 04/21/25 12:14 04/21/25 02:00 04/20/25 14:29 04/20/25 12:55 Urine Creatinine 36.34 mg/dL (30.0-125.0) Urine Protein/Creatinine Ratio 1.29 Urine Sodium 34 mmol/L (40-220) Urine Total Protein 46.7 mg/dL (1-14) Urine Opiates Screen Neg (NEGATIVE) Urine Fentanyl Screen Neg (NEGATIVE) Urine Barbiturates Screen Neg (NEGATIVE) Urine Phencyclidine Screen Neg (NEGATIVE) Urine Amphetamines Screen Neg (NEGATIVE) Urine Benzodiazepines Screen Neg (NEGATIVE) Urine Cocaine Screen Neg (NEGATIVE) Urine Cannabinoids Screen Neg (NEGATIVE) Prothrombin Time 10.8 sec (9.3-11.8) Prothrombin Time INR 1.02 (0.9-1.15) Activated Partial Thromboplast Time 33.3 SEC (24.5-34.5) Hemoglobin A1c 8.0 % A1C (<5.7) Lactic Acid Level 1.1 mmol/L (0.4-2.0) Phosphorus Level 3.5 mg/dL (2.4-5.1) B-Type Natriuretic Peptide 14.58 pg/mL (0-100) Vitamin D 25-Hydroxy 52.0 ng/mL (30.0-100) Parathyroid Hormone (Intact) 261.3 pg/mL (18.4-80.1) Lipase 34 U/L (12-53) Urine Color Yellow (Yellow) Urine Clarity Clear (Clear) Urine pH 5.5 (5.0-9.0) Urine Specific [place] 1.026 (1.001-1.035) Urine Protein Negative (Negative) Urine Ketones 1+ (Negative) Urine Blood Trace /uL (Negative) Urine Nitrite 2+ (Negative) Urine Bilirubin Negative (Negative) Urine Urobilinogen Normal mg/dL (Negative) Urine Leukocyte Esterase 2+ /uL (Negative) Urine RBC 16 /hpf (0 - 4) Urine Microscopic WBC 73 /HPF (0-5) Urine Squamous Epithelial Cells Few /hpf (<5) Urine Bacteria Few /hpf (None Seen) Urine Glucose 4+ mg/dL (Normal) Other Laboratory Tests 04/24/25 06:15 Brief Hx & Hospital Course: 50-year-old female with a past medical history of anemia, anxiety, diabetes type 2, hypertension, kidney stones, TIA, parathyroid tumor, hyperlipidemia came to the emergency department with the complaints of lower abdominal pain for the past 2 days. Patient reported that the pain started in the epigastric region that radiated down words to both the lower right and left quadrant and then went backwards to her flanks. She rates the pain as 10/10 in intensity, sharp and she tried cocaine patches which helped a bit. She said it was associated with nausea and drinking cold water helped a little but it was aggravated on movement. She also complains that she had fever of 102, loss of appetite and headache. She had no vomiting episodes. On inquiry patient denies any burning micturition or increased in frequency. Patient uses walker to ambulate due to diabetic neuropathy. She denies any chest pain, shortness of breath, cough or change in bowel movements. Patient also reports that she had been to the PCP Recently and was prescribed antibiotics for her UTI. Brief history of hospitalization: Patient came in with sepsis likely secondary to UTI/? pyelonephritis, emphysematous pyelonephritis this right kidney, obstructive right kidney nephrolithiasis and Gram-positive bacteremia. These were seen in the CT abdomen pelvis without contrast. The calculi in the right ureter is proximal at the ureteropelvic junction measuring 9 mm in length and 4 mm axially. There was also moderate hydronephrosis. An ultrasound gallbladder showed No gallstones or acute cholecystitis, common bile duct was not visualized and hepatomegaly and hepatic steatosis was noted. presence of nonobstructive right intrarenal calculi. We started the patient on IVF and urine culture, blood culture was sent. We gave her ondansetron for her nausea and initially we began her on Zosyn IV which was switched to IV meropenem and vancomycin. Vancomycin was stopped and meropenem was changed to ceftriaxone once the final aspiration culture showed Klebsiella pneumoniae. Urology consult was done and they consulted IR for right PCN placement and outpatient lithotripsy TBA after resolution of infection. IR performed status post placement of 8.5 Serbian right percutaneous nephrostomy catheter and the patient tolerated the procedure well. The nephrostomy tube is draining well and it was monitored every day. There was no bleeding seen and the fluid was straw-colored. For patient's hyperkalemia likely from primary hyperparathyroidism, likely from parathyroid adenoma we monitored her calcium levels which now today is 11.5. We checked her vitamin-D levels, serum phosphorus levels and pth hormone levels as well (elevated). 500 mL bolus normal saline was given and we also gave a dose of Lasix for the hypercalcemia. Nephrology consult was done who recommended patient needs parathyroidectomy as soon as possible on outpatient basis, we monitored labs and started on cinacalcet and zoledronic acid. NM scan was done which showed normal examination, no scintigraphic evidence of parathyroid adenoma. For hepatomegaly and hepatic steatosis a seen in CT abdomen pelvis we have counseled her regarding outpatient follow up. Ultrasound gallbladder showed no gallstones or acute cholecystitis and, bile duct was not visualized. For patient's essential hypertension home medication lisinopril 20 mg was stopped due to low BP and we monitored blood pressure. For patient's hyperlipidemia rosuvastatin, fenofibrate was continued and for patient's anemia of chronic disease iron sulfate home medication was continued. Patient also has vertigo and meclizine 10 mg per orally was continued. For patient's type 2 diabetes mellitus with hypoglycemia we continued to monitor her sugar levels and started insulin sliding scale. Patient is now stable for discharge. She has been counseled regarding the need of continuation of cephalexin 500 mg b.i.d. for 7 days for her pyelonephritis/uti. Patient has also been counseled regarding her high parathyroid levels in the need to meet her primary care physician as well as ENT for possible surgery. She has also been counseled regarding lithotripsy outpatient. Patient communicated understanding. We have also asked her to follow up in the discharge Clinic as well. Pt is lying on bed General Appearance: Alert, Oriented X3, Cooperative, mild distress HEENT: Atraumatic, Mucous membranes moist/pink Respiratory: Clear to auscultation, Normal air movement, No added sounds Cardiovascular: Regular rate, Normal S1, Normal S2, No murmurs Abdominal: Active bowel sounds, Soft, mild tenderness at nephrostomy placement site. Nephrostomy tube has no blood in the tube and 500 mL of fluid drained in the bag Extremities: No edema, Normal pulses, No tenderness/swelling Skin: No Significant rash, except past surgical scars Neuro: Normal speech, sensorimotor deficits none Psych/Mental Status: Mental status NL, Mood NL Nurse was there as aviation warfare systems operator during examination Operations or Procedures EXAM: US GALLBLADDER IMPRESSION: 1. No gallstones or acute cholecystitis. 2. Common bile duct not visualized. 3. Hepatomegaly and hepatic steatosis. 4. Nonobstructive right intrarenal calculi. CT SCAN ABDOMEN AND PELVIS WITHOUT CONTRAST IMPRESSION: Obstructing calculus/calculi at the RIGHT ureteropelvic junction, as above. Air within the right renal collecting system and bladder concerning for emphysematous infection. Recommend urologic consultation. A few other findings as above. HS:Y CHEST RADIOGRAPH IMPRESSION: 1. No acute disease. Mild diffuse increased prominence of the pulmonary vasculature. XY PERCUTANEOUS NEPHROSTOMY, IMPRESSION: Right hydronephrosis due to partially obstructive right kidney stone at the proximal ureter, status post placement of 8.5 barbadian right percutaneous nephrostomy catheter. PLAN: Routine catheter care. EXAM: XY CHEST PORTABLE IMPRESSION: No acute cardiopulmonary disease. EXAM: NM PARATHYROID IMPRESSION: 1. Normal exam. No scintigraphic evidence of a parathyroid adenoma. Condition at Discharge: Stable Final Diagnosis/Problems List # Sepsis likely secondary to UTI/? pyelonephritis # Emphysematous Pyelonephritis right kidney # Obstructive right kidney nephrolithiasis # G + Bacteremia , repeat cultures ordered # Hypercalcemia likely from primary hyperparathyroidism likely from parathyroid adenoma # hepatomegaly and hepatic steatosis # Essential hypertension # Hyperlipidemia # Anemia of chronic disease # Vertigo # Type 2 diabetes mellitus with hyperglycemia Discharge Disposition: Home Discharge Instruct/Medications Diet: Consistent carbohydrate, Cardiac 2g Na,low cholest Activity: No Restrictions, As Tolerated Follow Up/Referral: followup with PCP followup in discharge clinic in 1 week Medications: Keflex 500 mg b.i.d. for 7 days continue home medications Scheduled Aspirin (Aspirin Low Dose), 1 TAB PO DAILY, (Reported) Cephalexin (Keflex Capsule), 500 MG PO BID Cinacalcet Hydrochloride (Sensipar), 30 MG PO BID Ciprofloxacin Hcl (Cipro), 250 MG PO BID Dapagliflozin Propanediol (Farxiga), 1 TAB PO DAILY, (Reported) Ergocalciferol (Vitamin D), 1 CAP PO QWEEKLY, (Reported) Fenofibrate (Fenofibrate), 1 TAB PO DAILY, (Reported) Ferrous Sulfate (Iron (Ferrous Sulfate)), 325 MG PO BID, (Reported) Glipizide (Glipizide), 1 TAB PO BID, (Reported) Lidocaine (Lidocaine), 1 PATCH TOP DAILY, (Reported) Lisinopril (Lisinopril), 20 MG PO DAILY, (Reported) Magnesium Oxide (mg Supplement (Magnesium-Oxide), 1 TAB PO DAILY, (Reported) Semaglutide (Ozempic), 2 MG SC QWEEKLY, (Reported) Scheduled PRN Meclizine HCl (Meclizine Hydrochloride), 1 TAB PO BIDPRN PRN for VERTIGO, (Reported) Miscellaneous Medications Finerenone (Kerendia), PO, (Reported) Lidocaine (Ztlido), TOP, (Reported) Metformin Hydrochloride (Metformin Hcl), 1 TAB PO, (Reported) Tirzepatide (Mounjaro), SC, (Reported) Discharge Statement: "Patient was advised to return to the ER or call 911 if any headaches, dizziness, shortness of breath, chest pain, abdominal pain, bleeding, fevers, or worsening of medical condition. Patient was counseled about treatment plan, medications, possible side effects, patientverbalized understanding. All questions were answered to the best of my ability. This discharge took greater then 30 minutes in planning, reviewing documentation, counseling the patient, and discussing with other team members." ASSESSMENT ASSESSMENT Assessment Sepsis secondary to urinary tract infection pyelonephritis nephrolithiasis Date of Service: Apr 24, 2025 Billing Provider: TIMBO SANCHEZ MD Common Visit Codes: 15375-NCP/OBS DISCH DAY >30min LINDA LOPEZ RESIDENT Apr 24, 2025 15:38 TIMBO SANCHEZ MD Apr 25, 2025 23:55
[2025-04-24 17:00] VITALS: BP 137/83; PULSE 96; RESP 18; TEMP 97.4; O2SAT 97
== END 2025-04-24 18:36 | disposition home or self-care (01) | DRG 871 ==
LOC: ER 11:56 → OVERFLOW 23:34 → EAST 04-21 16:57
PROVIDERS: ADMIT Internal Medicine; ATTEND Emergency Medicine
PROC: 0T9030Z Drainage of Right Kidney with Drainage Device, Percutaneous Approach (ICD-10-PCS; principal; 2025-04-21)
DX: A41.89 Other specified sepsis (principal); N17.0 Acute kidney failure with tubular necrosis; N13.6 Pyonephrosis; R16.0 Hepatomegaly, not elsewhere classified; D63.8 Anemia in other chronic diseases classified elsewhere; E87.5 Hyperkalemia; E11.65 Type 2 diabetes mellitus with hyperglycemia; I10 Essential (primary) hypertension; E11.40 Type 2 diabetes mellitus with diabetic neuropathy, unspecified; K76.0 Fatty (change of) liver, not elsewhere classified; E78.5 Hyperlipidemia, unspecified; E21.0 Primary hyperparathyroidism; D36.7 Benign neoplasm of other specified sites; F41.9 Anxiety disorder, unspecified; Z87.442 Personal history of urinary calculi; Z86.73 Personal history of transient ischemic attack (TIA), and cerebral infarction without residual deficits; Z79.899 Other long term (current) drug therapy; Z79.84 Long term (current) use of oral hypoglycemic drugs; Z79.82 Long term (current) use of aspirin; Z79.4 Long term (current) use of insulin
CPT/HCPCS: 36415; 50435; 71045; 74176; 74425; 76705; 76942; 78070; 80048; 80053; 80202; 80307; 81001; 82306; 82565; 82570; 82962; 83036; 83605; 83690; 83880; 83970; 84100; 84156; 84300; 85025; 85610; 85730; 87040; 87077; 87086; 87088; 87186; 87205; 93005; 93306; 96374; 96375; 99152; G0378; J1815; J2185; J2250; J2405; J2470; J2543; J3489; Q9967

== ENCOUNTER 2025-04-29 18:56 | Emergency (ER) | payer MEDICARE, MEDICAID ==
[~2025-04-29] VITALS: Ht 165.1 cm; Wt 99.8 kg
[~2025-04-29 18:56] MED LIST changes: +CEPH250C PO; +CINA30TA2 PO
[2025-04-29 19:42] LABS: Hematocrit 43.5 % (36.0-46.0); Hemoglobin 14.8 g/dL (12.2-16.2); Mean Corpuscular Hemoglobin 30.4 pg (28.0-32.0); Mean Corpuscular Volume 89.2 fL (80.0-100.0)
[2025-04-29 19:53] LABS: Urine Protein, UAD 1+ (Negative)
--- NOTE | 2025-04-29 20:01 | DVH ---
Exam: CT CT AB PEL WO CON-NO ORAL OR IV History: flank pain Comparison Study: CT CT AB PEL WO CON-NO ORAL OR IV on DOS: 04/20/25 TECHNIQUE: Multidetector CT of the abdomen and pelvis was performed from lung bases to pubic symphysi s. Imaging was performed without IV contrast. Axial, coronal, and sagittal multiplanar reformats were obtained from the axial data set by the technologist. RADIATION DOSE: CTDI vol 25.43 mGy. DLP 1309.31 mGy.cm Findings: Limited evaluation of the solid organs in the absence of IV contrast. Liver: Unremarkable. Spleen: Unremarkable. Pancreas: Unremarkable. Gallbladder: Unremarkable. Adrenals: Unremarkable Kidneys: Interval right percutaneous nephrostomy. Redemonstration of a 9 mm calculus situated within the right proximal ureter. Probable small blood products layering within the right pararenal space. Interval resolution of the previously seen air within the right renal pelvis. Mild right perinephric stranding. Punctate nonobstructing left renal calculi. Pelvic Viscera: Interval decrease in gas within the urinary bladder, with tiny locules of gas remaini ng in the region of the anterior wall. Small gas is seen within the vagina. Vasculature: Mild atherosclerotic aortoiliac calcifications. Retroperitoneum: Shotty retroperitoneal nodes. No ascites. Bowel: Colonic diverticulosis without CT evidence of diverticulitis. No bowel obstruction. The append ix is normal. Musculoskeletal: Unremarkable. Soft tissues: Unremarkable Lungs: Basilar atelectasis/scarring. Impression: 1. Interval right percutaneous nephrostomy with resolution of the previously seen gas in the collecti ng system. Persistent 9 mm calculus in the right proximal ureter. 2. Interval decrease in gas within the urinary bladder, with tiny locules of gas remaining. Persisten t infectious process cannot be entirely excluded. 3. Gas in the vagina, nonspecific, fistula cannot be excluded. The clinical correlation is recommende d. 4. Incidental findings as detailed.
[2025-04-29 20:27] LABS: Chloride 105 mmol/L (98-107); Potassium 4.9 mmol/L (3.5-5.1); Sodium 140 mmol/L (136-145)
[2025-04-29 20:28] LABS: Anion Gap 10 (5-15); Carbon Dioxide 25 mmol/L (20-31)
[2025-04-29 20:32] LABS: Anisocytosis Slight; Total Cells Counted 100.0 (100)
[2025-04-29 20:33] LABS: BUN/Creatinine Ratio 18.6 (10.0-20.0); Blood Urea Nitrogen 13 mg/dL (9-23)
[2025-04-29 20:34] LABS: Calcium 11.8 mg/dL (8.7-10.4); Glucose 120 mg/dL (74-106)
--- NOTE | 2025-04-29 21:05 | ED.PDOC ---
General HPI Comments Right flank pain and blood in her urine. States she had nephrostomy tube placed on April 24. States she was discharged home. She is was started on ciprofloxacin for urinary tract infection. States she started noticing blood in her urostomy bag and was having right flank pain. States she noticed no redness no swelling on the external area from the nephrostomy tube. States she has been having some chills and fever. Chief Complaint: Urinary Time Seen by MD: 19:03 Primary Care Provider: MARGARITO Reviewed notes: Nurses Notes Allergies: Coded Allergies: NO KNOWN ALLERGIES (Unverified , 08/11/16) Home Meds Active Scripts Cephalexin (KEFLEX CAPSULE) 250 Mg Cp, 500 MG PO BID for 10 Days, #40 CAP Prov:SALEEM GANNON RESIDENT 04/24/25 Cinacalcet Hydrochloride (Sensipar) 30 Mg Tab, 30 MG PO BID for 30 Days, #60 TAB 0 Refills Prov:MEGHAN LIAO RESIDENT 04/22/25 Ciprofloxacin Hcl (Cipro) 250 Mg Tab, 250 MG PO BID for 5 Days, #10 TAB Prov:OG NICHOLS MD 02/14/24 Reported Medications Meclizine HCl (Meclizine Hydrochloride) 25 Mg Tab, 1 TAB PO BIDPRN PRN for VERTIGO 02/12/24 Lidocaine (Lidocaine) 5 % Pad, 1 PATCH TOP DAILY 02/12/24 Ergocalciferol (Vitamin D) 50,000 Unit Cap, 1 CAP PO QWEEKLY 02/12/24 Dapagliflozin Propanediol (Farxiga) 10 Mg Tab, 1 TAB PO DAILY 02/12/24 Aspirin (Aspirin Low Dose) 81 Mg Tab, 1 TAB PO DAILY 02/12/24 Fenofibrate (FENOFIBRATE) 48 Mg Tab, 1 TAB PO DAILY 02/12/24 Magnesium Oxide (mg Supplement (Magnesium-Oxide) 400 Mg Tab, 1 TAB PO DAILY 02/12/24 Semaglutide (Ozempic) 8 Mg/3 Ml Inj, 2 MG SC QWEEKLY 02/12/24 Finerenone (Kerendia) 20 Mg Tab, PO 02/12/24 Lidocaine (Ztlido) 1.8 % Pad, TOP 02/12/24 Tirzepatide (Mounjaro) 7.5 Mg/0.5 Ml Inj, SC 02/12/24 Metformin Hydrochloride (Metformin Hcl) 500 Mg Tab, 1 TAB PO 02/12/24 Ferrous Sulfate (Iron (Ferrous Sulfate)) 50 Mg Tab, 325 MG PO BID, TAB 05/26/19 Lisinopril (Lisinopril) 20 Mg Tab, 20 MG PO DAILY, TAB 05/26/19 Glipizide (Glipizide) 10 Mg Tab, 1 TAB PO BID, #180 TAB 3 Refills 05/26/19 Information Source: Patient Mode of Arrival: Ambulatory Past Medical History PAST MEDICAL HISTORY: Anemia, Anxiety, DM, HTN, Kidney Stones, Thyroid, TIA Surgical History: BTL, ANIMAL TECHNICIAN History: No Pertinent ANIMAL TECHNICIAN History Family History Family History: Reviewed,noncontributory to illness, No family hx of Cancer, Family hx of DM Social History Smoker: Non-Smoker Alcohol: Denies ETOH Use Drugs: Denies Drug Use Lives In: Home Constitutional: denies: chills, diaphoresis, fatigue, fever, malaise, sweats, weakness, others EENTM: denies: blurred vision, double vision, ear bleeding, ear discharge, ear drainage, ear pain, ear ringing, eye pain, eye redness, hearing loss, mouth pain, mouth swelling, nasal discharge, nose bleeding, nose congestion, nose pain, photophobia, tearing, throat pain, throat swelling, voice changes, others Respiratory: denies: cough, hemoptysis, orthopnea, SOB at rest, shortness of breath, SOB with excertion, stridor, wheezing, others Cardiovascular: denies: chest pain, dizzy spells, diaphoresis, Dyspnea on exertion, edema, irregular heart beat, left arm pain, lightheadedness, palpitations, PND, syncope, others Gastrointestinal: denies: abdomen distended, abdominal pain, blood streaked bowels, constipated, diarrhea, dysphagia, difficulty swallowing, hematemesis, melena, nausea, poor appetite, poor fluid intake, rectal bleeding, rectal pain, vomiting, others Genitourinary: reports: flank pain, hematuria; denies: abnormal vagina bleeding, burning, dyspareunia, dysuria, frequency, incontinence, pain, , vagina discharge, urgency, others Neurological: denies: dizziness, fainting, headache, left sided numbness, left sided weakness, numbness, paresthesia, pre-existing deficit, right sided numbness, right sided weakness, seizure, speech problems, tingling, tremors, weakness, others Musculoskeletal: denies: back pain, gout, joint pain, joint swelling, muscle pain, muscle stiffness, neck pain, others Integumetry: denies: bruises, change in color, change in hair/nails, dryness, laceration, lesions, lumps, rash, wounds, others Allergic/Immunocompromised: denies: Difficulty Healing, Frequent Infections, Hives, Itching, others Hematologic/Lymphatic: denies: anemia, blood clots, easy bleeding, easy bruising, swollen glands, others Physical Exam General Appearance: No Apparent Distress, Normal HEENT: Normal ENT Inspection, Pharynx Normal, TMs Normal Neck: Full Range of Motion, Non-Tender, Normal, Normal Inspection Respiratory: Chest Non-Tender, Lungs Clear, No Accessory Muscle Use, No Respiratory Distress, Normal Breath Sounds Cardiovascular: No Edema, No JVD, No Murmur, No Gallop, Normal Peripheral Pulses, Regular Rate/Rhythm Breast Exam: Deferred Gastrointestinal: No Organomegaly, Non Tender, No Pulsatile Mass, Normal Bowel Sounds, Soft Genitalia: Deferred Pelvic: Deferred Rectal: Deferred Extremities: No calf tenderness, Normal capillary refill, Normal inspection, Normal range of motion, Non-tender, No pedal edema Musculoskeletal : Apperance: Normal Neurologic: Alert, senior project accountant II-XII nml as Tested, No Motor Deficits, Normal Affect, Normal Mood, No Sensory Deficits Cerebellar Function: Normal Reflexes: Normal Skin: Dry, Normal Color, Warm Lymphatic: No Adenopathy Was a procedure done? Was a procedure done?: No Differential Diagnosis Kidney stone (Female): Bowel obstruction, Cholelithiasis, Ectopic , Hepatitis, HNP, Ovarian torsion Kidney stone (Male): N/A Penile/Scrotal: N/A Urinary Problem (Male): N/A Urinary Problem (Female): N/A X-Ray, Labs, Meds, VS Vital Signs Date Time Temp Pulse Resp B/P (MAP) Pulse Ox O2 Delivery O2 Flow Rate FiO2 04/29/25 19:00 98.2 94 16 142/76 97 98.2 Lab Test 04/29/25 20:04 04/29/25 19:37 04/29/25 19:24 Range/Units Sodium Level 140 136-145 mmol/L Potassium Level 4.9 3.5-5.1 mmol/L Chloride Level 105 98-107 mmol/L Carbon Dioxide Level 25 20-31 mmol/L Anion Gap 10 5-15 Blood Urea Nitrogen 13 9-23 mg/dL Creatinine 0.70 # 0.550-1.02 mg/dL Glomerular Filtration Rate Calc 104 >90 mL/min BUN/Creatinine Ratio 18.6 10.0-20.0 Serum Glucose 120 H 74-106 mg/dL Calcium Level 11.8 H 8.7-10.4 mg/dL Urine Color Brown H Yellow Urine Clarity Ex.turbid Clear Urine pH 7.5 5.0-9.0 Urine Specific [employer] 1.013 1.001-1.035 Urine Protein 1+ H Negative Urine Ketones Negative Negative Urine Blood 3+ H Negative /uL Urine Nitrite Negative Negative Urine Bilirubin Negative Negative Urine Urobilinogen Normal Negative mg/dL Urine Leukocyte Esterase 1+ Negative /uL Urine RBC 7885 0 - 4 /hpf Urine Microscopic WBC 1 0-5 /HPF Urine Squamous Epithelial Cells None seen <5 /hpf Urine Bacteria None seen None Seen /hpf Urine Glucose 4+ H Normal mg/dL White Blood Count 17.8 #H 4.4-10.8 10^3/uL Red Blood Count 4.88 4.0-5.20 10^6/uL Hemoglobin 14.8 12.2-16.2 g/dL Hematocrit 43.5 # 36.0-46.0 % Mean Corpuscular Volume 89.2 80.0-100.0 fL Mean Corpuscular Hemoglobin 30.4 28.0-32.0 pg Mean Corpuscular Hemoglobin Concent 34.1 32.0-36.0 g/dL Red Cell Distribution Width 15.8 H 11.8-14.3 % Platelet Count 532 H 140-450 10^3/uL Mean Platelet Volume 7.1 6.9-10.8 fL Neutrophils (%) (Auto) 37.0-80.0 % Lymphocytes (%) (Auto) 10.0-50.0 % Monocytes (%) (Auto) 0.0-12.0 % Basophils (%) (Auto) 0.0-2.0 % Neutrophils # (Auto) 1.6-8.6 10 ^3/uL Lymphocytes # (Auto) 0.4-5.4 10 ^3/uL Monocytes # (Auto) 0-1.3 10 ^3/uL Differential Total Cells Counted 100.0 100 Neutrophils % (Manual) 71 37.0-80.0 Band Neutrophils % (Manual) 3 Lymphocytes % (Manual) 18 10.0-50.0 Monocytes % (Manual) 7 0-12 Eosinophils % (Manual) 0 0-7 Basophils % (Manual) 0 0.0-2.0 Metamyelocytes % (manual) 0 Myelocytes % (Manual) 0 Promyelocytes % (Manual) 0 Blast Cells % (Manual) 0 Reactive Lymphocytes 1 Platelet Estimate Increased Clumped Platelets Few Large Platelets Few Anisocytosis (manual) Slight X-Ray, Labs, Meds, VS Comment Recommend patient will be admitted for pyelonephritis, failed outpatient treatment of oral antibiotics Patient will be started on Rocephin 1 g Recommend urology follow up in the morning Time of 1ST Reevaluation: 21:05 Reevaluation 1ST: Unchanged Patient Education/Counseling: Diagnosis, Treatment Family Education/Counseling: Diagnosis SEPSIS Sepsis Screen Date sepsis recognized/suspect: Apr 29, 2025 Time Sepsis recognized/suspect: 1899 Recent Procedure: No On Antibiotic Therapy: No Respiratory Rate >20: No Heart Rate >90: No Temp<36 C (96.8 F) or >38.3 C: No SBP <90 or MAP <65 mmHG: No New Acute Mental Status Change: No Is the patient on CPAP, BIPAP,: No Physician Orders Ct Ab Pel Wo Con-No Oral Or Iv (04/29/25 19:12) Ceftriaxone Sodium (Rocephin) (04/29/25 21:00) Vital Signs Date Time Temp Pulse Resp B/P (MAP) Pulse Ox O2 Delivery O2 Flow Rate FiO2 04/29/25 19:00 98.2 94 16 142/76 97 98.2 Laboratory Tests Test 04/29/25 19:24 White Blood Count 17.8 10^3/uL (4.4-10.8) #H Departure 1 Departure Time of Disposition: 21:04 Impression: Primary Impression: Emphysematous pyelonephritis of right kidney Disposition: ADMITTED INPATIENT Condition: Stable Discharged With: Self Critical Care Note Critical Care Time?: No Stability Stability form required: No Heart Score Heart Score: Heart Score Response (Comments) Value History N/A 0 EKG N/A 0 Age N/A 0 Risk Factors N/A 0 Troponin N/A 0 Total 0 [facility] Apr 29, 2025 21:05
[2025-04-29 21:31] VITALS: BP 138/80; PULSE 101; RESP 14; TEMP 98.7; O2SAT 98
[2025-04-29] MEDS ORDERED: DEXTROSE (50%) 50ML SYRG IV PRN (22:30)
[2025-04-29] MEDS ORDERED: MORPHINE SULFATE INJ 2 MG/ml SYRG IV PRN (22:30)
[2025-04-29] MEDS ORDERED: HYDROcodone-ACET 5/325MG TAB PO PRN (22:30)
[2025-04-29] MEDS ORDERED: ACETAMINOPHEN 325 MG TAB PO PRN (22:30)
[2025-04-29] MEDS ORDERED: ONDANSETRON HCL 4 MG/2 ML VIAL IV PRN (22:30)
[2025-04-29] MEDS: cefTRIAXone SOD 1,000 MG VL IM ONE (23:16)
--- NOTE | 2025-04-30 00:31 | ED.PDOC ---
General HPI Comments Right flank pain and blood in her urine. States she had nephrostomy tube placed on April 24. States she was discharged home. She is was started on ciprofloxacin for urinary tract infection. States she started noticing blood in her urostomy bag and was having right flank pain. States she noticed no redness no swelling on the external area from the nephrostomy tube. States she has been having some chills and fever. Chief Complaint: Urinary Time Seen by MD: 19:03 Primary Care Provider: MARGARITO Reviewed notes: Nurses Notes Allergies: Coded Allergies: NO KNOWN ALLERGIES (Unverified , 08/11/16) Home Meds Active Scripts Cephalexin (KEFLEX CAPSULE) 250 Mg Cp, 500 MG PO BID for 10 Days, #40 CAP Prov:SALEEM GANNON RESIDENT 04/24/25 Cinacalcet Hydrochloride (Sensipar) 30 Mg Tab, 30 MG PO BID for 30 Days, #60 TAB 0 Refills Prov:MEGHAN LIAO RESIDENT 04/22/25 Ciprofloxacin Hcl (Cipro) 250 Mg Tab, 250 MG PO BID for 5 Days, #10 TAB Prov:OG NICHOLS MD 02/14/24 Reported Medications Meclizine HCl (Meclizine Hydrochloride) 25 Mg Tab, 1 TAB PO BIDPRN PRN for VERTIGO 02/12/24 Lidocaine (Lidocaine) 5 % Pad, 1 PATCH TOP DAILY 02/12/24 Ergocalciferol (Vitamin D) 50,000 Unit Cap, 1 CAP PO QWEEKLY 02/12/24 Dapagliflozin Propanediol (Farxiga) 10 Mg Tab, 1 TAB PO DAILY 02/12/24 Aspirin (Aspirin Low Dose) 81 Mg Tab, 1 TAB PO DAILY 02/12/24 Fenofibrate (FENOFIBRATE) 48 Mg Tab, 1 TAB PO DAILY 02/12/24 Magnesium Oxide (mg Supplement (Magnesium-Oxide) 400 Mg Tab, 1 TAB PO DAILY 02/12/24 Semaglutide (Ozempic) 8 Mg/3 Ml Inj, 2 MG SC QWEEKLY 02/12/24 Finerenone (Kerendia) 20 Mg Tab, PO 02/12/24 Lidocaine (Ztlido) 1.8 % Pad, TOP 02/12/24 Tirzepatide (Mounjaro) 7.5 Mg/0.5 Ml Inj, SC 02/12/24 Metformin Hydrochloride (Metformin Hcl) 500 Mg Tab, 1 TAB PO 02/12/24 Ferrous Sulfate (Iron (Ferrous Sulfate)) 50 Mg Tab, 325 MG PO BID, TAB 05/26/19 Lisinopril (Lisinopril) 20 Mg Tab, 20 MG PO DAILY, TAB 05/26/19 Glipizide (Glipizide) 10 Mg Tab, 1 TAB PO BID, #180 TAB 3 Refills 05/26/19 Information Source: Patient Mode of Arrival: Ambulatory Past Medical History PAST MEDICAL HISTORY: Anemia, Anxiety, DM, HTN, Kidney Stones, Thyroid, TIA Surgical History: BTL, ACTIVE DIRECTORY ARCHITECT History: No Pertinent ACTIVE DIRECTORY ARCHITECT History Family History Family History: Reviewed,noncontributory to illness, No family hx of Cancer, Family hx of DM Social History Smoker: Non-Smoker Alcohol: Denies ETOH Use Drugs: Denies Drug Use Lives In: Home Constitutional: denies: chills, diaphoresis, fatigue, fever, malaise, sweats, weakness, others EENTM: denies: blurred vision, double vision, ear bleeding, ear discharge, ear drainage, ear pain, ear ringing, eye pain, eye redness, hearing loss, mouth pain, mouth swelling, nasal discharge, nose bleeding, nose congestion, nose pain, photophobia, tearing, throat pain, throat swelling, voice changes, others Respiratory: denies: cough, hemoptysis, orthopnea, SOB at rest, shortness of breath, SOB with excertion, stridor, wheezing, others Cardiovascular: denies: chest pain, dizzy spells, diaphoresis, Dyspnea on exertion, edema, irregular heart beat, left arm pain, lightheadedness, palpitations, PND, syncope, others Gastrointestinal: denies: abdomen distended, abdominal pain, blood streaked bowels, constipated, diarrhea, dysphagia, difficulty swallowing, hematemesis, melena, nausea, poor appetite, poor fluid intake, rectal bleeding, rectal pain, vomiting, others Genitourinary: reports: flank pain, hematuria; denies: abnormal vagina bleeding, burning, dyspareunia, dysuria, frequency, incontinence, pain, , vagina discharge, urgency, others Neurological: denies: dizziness, fainting, headache, left sided numbness, left sided weakness, numbness, paresthesia, pre-existing deficit, right sided numbness, right sided weakness, seizure, speech problems, tingling, tremors, weakness, others Musculoskeletal: denies: back pain, gout, joint pain, joint swelling, muscle pain, muscle stiffness, neck pain, others Integumetry: denies: bruises, change in color, change in hair/nails, dryness, laceration, lesions, lumps, rash, wounds, others Allergic/Immunocompromised: denies: Difficulty Healing, Frequent Infections, Hives, Itching, others Physical Exam General Appearance: No Apparent Distress, Normal HEENT: Normal ENT Inspection, Pharynx Normal, TMs Normal Neck: Full Range of Motion, Non-Tender, Normal, Normal Inspection Respiratory: Chest Non-Tender, Lungs Clear, No Accessory Muscle Use, No Respiratory Distress, Normal Breath Sounds Cardiovascular: No Edema, No JVD, No Murmur, No Gallop, Normal Peripheral Pulses, Regular Rate/Rhythm Breast Exam: Deferred Gastrointestinal: No Organomegaly, Non Tender, No Pulsatile Mass, Normal Bowel Sounds, Soft Genitalia: Deferred Pelvic: Deferred Rectal: Deferred Extremities: No calf tenderness, Normal capillary refill, Normal inspection, Normal range of motion, Non-tender, No pedal edema Musculoskeletal : Apperance: Normal Neurologic: Alert, optical mechanic apprentice II-XII nml as Tested, No Motor Deficits, Normal Affect, Normal Mood, No Sensory Deficits Cerebellar Function: Normal Reflexes: Normal Skin: Dry, Normal Color, Warm Lymphatic: No Adenopathy Was a procedure done? Was a procedure done?: No Differential Diagnosis Kidney stone (Female): Renal failure, Urinary obstruction, Urolithiasis X-Ray, Labs, Meds, VS Vital Signs Date Time Temp Pulse Resp B/P (MAP) Pulse Ox O2 Delivery O2 Flow Rate FiO2 04/29/25 21:31 98.7 101 14 138/80 (99) 98 98.7 04/29/25 19:00 98.2 94 16 142/76 97 98.2 Lab Test 04/29/25 20:04 04/29/25 19:37 04/29/25 19:24 Range/Units Sodium Level 140 136-145 mmol/L Potassium Level 4.9 3.5-5.1 mmol/L Chloride Level 105 98-107 mmol/L Carbon Dioxide Level 25 20-31 mmol/L Anion Gap 10 5-15 Blood Urea Nitrogen 13 9-23 mg/dL Creatinine 0.70 # 0.550-1.02 mg/dL Glomerular Filtration Rate Calc 104 >90 mL/min BUN/Creatinine Ratio 18.6 10.0-20.0 Serum Glucose 120 H 74-106 mg/dL Calcium Level 11.8 H 8.7-10.4 mg/dL Urine Color Brown H Yellow Urine Clarity Ex.turbid Clear Urine pH 7.5 5.0-9.0 Urine Specific [place] 1.013 1.001-1.035 Urine Protein 1+ H Negative Urine Ketones Negative Negative Urine Blood 3+ H Negative /uL Urine Nitrite Negative Negative Urine Bilirubin Negative Negative Urine Urobilinogen Normal Negative mg/dL Urine Leukocyte Esterase 1+ Negative /uL Urine RBC 7885 0 - 4 /hpf Urine Microscopic WBC 1 0-5 /HPF Urine Squamous Epithelial Cells None seen <5 /hpf Urine Bacteria None seen None Seen /hpf Urine Glucose 4+ H Normal mg/dL White Blood Count 17.8 #H 4.4-10.8 10^3/uL Red Blood Count 4.88 4.0-5.20 10^6/uL Hemoglobin 14.8 12.2-16.2 g/dL Hematocrit 43.5 # 36.0-46.0 % Mean Corpuscular Volume 89.2 80.0-100.0 fL Mean Corpuscular Hemoglobin 30.4 28.0-32.0 pg Mean Corpuscular Hemoglobin Concent 34.1 32.0-36.0 g/dL Red Cell Distribution Width 15.8 H 11.8-14.3 % Platelet Count 532 H 140-450 10^3/uL Mean Platelet Volume 7.1 6.9-10.8 fL Neutrophils (%) (Auto) 37.0-80.0 % Lymphocytes (%) (Auto) 10.0-50.0 % Monocytes (%) (Auto) 0.0-12.0 % Basophils (%) (Auto) 0.0-2.0 % Neutrophils # (Auto) 1.6-8.6 10 ^3/uL Lymphocytes # (Auto) 0.4-5.4 10 ^3/uL Monocytes # (Auto) 0-1.3 10 ^3/uL Differential Total Cells Counted 100.0 100 Neutrophils % (Manual) 71 37.0-80.0 Band Neutrophils % (Manual) 3 Lymphocytes % (Manual) 18 10.0-50.0 Monocytes % (Manual) 7 0-12 Eosinophils % (Manual) 0 0-7 Basophils % (Manual) 0 0.0-2.0 Metamyelocytes % (manual) 0 Myelocytes % (Manual) 0 Promyelocytes % (Manual) 0 Blast Cells % (Manual) 0 Reactive Lymphocytes 1 Platelet Estimate Increased Clumped Platelets Few Large Platelets Few Anisocytosis (manual) Slight X-Ray, Labs, Meds, VS Comment Patient will be admitted for failed outpatient treatment for pyelonephritis Patient given 1 g Rocephin Patient was previously admitted and then left/eloped. Patient returned to the clinic. Lab work still current from prior visit. Time of 1ST Reevaluation: 21:04 Reevaluation 1ST: Unchanged Patient Education/Counseling: Diagnosis, Treatment Family Education/Counseling: Diagnosis, Treatment SEPSIS Sepsis Screen Date sepsis recognized/suspect: Apr 29, 2025 Time Sepsis recognized/suspect: 1899 Recent Procedure: No On Antibiotic Therapy: No Respiratory Rate >20: No Heart Rate >90: No Temp<36 C (96.8 F) or >38.3 C: No SBP <90 or MAP <65 mmHG: No New Acute Mental Status Change: No Is the patient on CPAP, BIPAP,: No Physician Orders Ct Ab Pel Wo Con-No Oral Or Iv (04/29/25 19:12) Vital Signs Date Time Temp Pulse Resp B/P (MAP) Pulse Ox O2 Delivery O2 Flow Rate FiO2 04/29/25 21:31 98.7 101 14 138/80 (99) 98 98.7 04/29/25 19:00 98.2 94 16 142/76 97 98.2 Laboratory Tests Test 04/29/25 19:24 White Blood Count 17.8 10^3/uL (4.4-10.8) #H Departure 1 Departure Time of Disposition: 21:04 Impression: Primary Impression: Emphysematous pyelonephritis of right kidney Disposition: 09 ADMITTED INPATIENT Condition: Stable Discharged With: Self Critical Care Note Critical Care Time?: No Stability Stability form required: No Heart Score Heart Score: Heart Score Response (Comments) Value History N/A 0 EKG N/A 0 Age N/A 0 Risk Factors N/A 0 Troponin N/A 0 Total 0 REID MARIEE Apr 30, 2025 00:31
[2025-04-30] MEDS ORDERED: ACCU-CHEK COMFORT CURVE STRIP VI SCH (07:00)
[2025-04-30] MEDS ORDERED: InsuLIN REG 1unit/0.01ml Soln (100units/ml) SC SCH (07:00)
[2025-04-30] MEDS ORDERED: FERROUS SULFATE 325mg EC TAB PO SCH (08:00)
[2025-04-30] MEDS ORDERED: cefTRIAXone 1GM/50ML D5W 50 ML IV SCH (09:00)
[2025-04-30] MEDS ORDERED: LISINOPRIL 20 MG TAB PO SCH (10:00)
== END 2025-04-29 23:58 | disposition left against medical advice (07) ==
LOC: ER 18:56 → OVERFLOW 22:17 → UNDOADMIN 22:17 → OVERFLOW 22:34 → UNDODISIN 23:44 → OVERFLOW 23:58 → UNDODEPER 04-30 06:08
DX: N10 Acute pyelonephritis (principal); I10 Essential (primary) hypertension; E11.9 Type 2 diabetes mellitus without complications; F41.9 Anxiety disorder, unspecified; E03.9 Hypothyroidism, unspecified; D64.9 Anemia, unspecified; G45.9 Transient cerebral ischemic attack, unspecified; Z98.890 Other specified postprocedural states; Z79.82 Long term (current) use of aspirin; Z79.84 Long term (current) use of oral hypoglycemic drugs; Z79.899 Other long term (current) drug therapy
CPT/HCPCS: 36415; 74176; 80048; 81001; 85007; 85027; G0378

== ENCOUNTER 2025-08-08 07:22 | Outpatient (CLI) | payer MEDICARE, MEDICAID ==
[2025-08-08 08:33] LABS: Chloride 104 mmol/L (98-107); Potassium 4.2 mmol/L (3.5-5.1); Sodium 140 mmol/L (136-145)
[2025-08-08 08:34] LABS: Anion Gap 8 (5-15); Carbon Dioxide 28 mmol/L (20-31)
[2025-08-08 08:39] LABS: BUN/Creatinine Ratio 28.1 (10.0-20.0); Blood Urea Nitrogen 18 mg/dL (9-23)
[2025-08-08 08:41] LABS: Calcium 11.2 mg/dL (8.7-10.4); Glucose 139 mg/dL (74-106)
== END 2025-08-08 17:00 | disposition home or self-care (01) ==
LOC: LAB 07:22
PROVIDERS: ATTEND Internal Medicine
DX: D25.9 Leiomyoma of uterus, unspecified (principal)
CPT/HCPCS: 36415; 80048